=== PATIENT | female | born 1990 | race Caucasian/White ===

== ENCOUNTER → 2021-06-28 15:40 | Outpatient (REF) | payer MEDICARE, MEDICAID, SELFPAY ==
--- NOTE | 2021-06-28 | ECG_ITS ---
Test Reason : high risk med Blood Pressure : / mmHG Vent. Rate : 084 BPM Atrial Rate : 084 BPM P-R Int : 142 ms QRS Dur : 084 ms QT Int : 368 ms P-R-T Axes : 070 021 056 degrees QTc Int : 434 ms Normal sinus rhythm RSR' or QR pattern in V1 suggests right ventricular conduction delay Otherwise normal ECG No significant changes seen Referred By: Gerardo Barry Electronically Signed By:SIMÓN BOYCE MD
== END ==
LOC: HO.CARD 15:40
PROVIDERS: PCP Internal Medicine; Visit Provider Psychiatry & Neurology Child & Adolescent Psychiatry
DX: F43.10 Post-traumatic stress disorder, unspecified (principal); Z79.899 Other long term (current) drug therapy
CPT/HCPCS: 93005

== ENCOUNTER 2021-12-04 20:13 | Emergency (ER) | payer MEDICARE, MEDICAID, SELFPAY ==
[2021-12-04 20:30] VITALS: BMI 20.1
[2021-12-04 20:50] LABS: Appearance Urine CLEAR; Color Urine YELLOW; Glucose Urine UA NEG (NEG); Leukocyte Esterase Urine TRACE (NEG); Nitrite Urine NEG (NEG); PH 6.5 (5.0-8.0); Specific Gravity - Urine <= 1.005 (1.005-1.025); UACC Culture Trigger YES; Urine Blood 3+ (NEG); Urine Ketones NEG (NEG); Urine Protein NEG (NEG-TRACE)
[2021-12-04 20:55] LABS: UPreg QC Valid YES; Urine Pregnancy NEGATIVE (NEGATIVE)
[2021-12-04 20:58] LABS: Squamous Epithelial Cell Urine 3+ /LPF; UACC CULT YES
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
[2021-12-04 20:59] LABS: Bacteria Urine TRACE /LPF
[2021-12-04 21:04] LABS: COVID-19 Test Negative (Negative)
[2021-12-04 21:09] LABS: Amphetamine Screen Urine Not Detected (Not Detect); Barbiturates, Urine Not Detected (Not Detect); Benzodiazepines Screen Urine Not Detected (Not Detect); Cannabinoid Screen Urine Not Detected (Not Detect); Cocaine Screen Urine Not Detected (Not Detect); Fentanyl, urine Not Detected (Not Detect); Opiate Screen Urine Not Detected (Not Detect); Phencyclidine Screen Urine Not Detected (Not Detect)
[2021-12-04] MEDS: Ibuprofen 600 MG TABLET PO (22:24)
[2021-12-04 23:28] VITALS: BP 125/79; PULSE 107; RESP 16; TEMP 36.5; O2SAT 98
== END 2021-12-05 00:44 | disposition home or self-care (01) ==
PROVIDERS: Emergency Provider Emergency Medicine Emergency Medical Services; PCP Internal Medicine
DX: F32.A Depression, unspecified (principal); F41.9 Anxiety disorder, unspecified; F43.10 Post-traumatic stress disorder, unspecified; F60.3 Borderline personality disorder; Z20.822 Contact with and (suspected) exposure to COVID-19
CPT/HCPCS: 80307; 81001; 81025; 87086; 87635; 99283

== ENCOUNTER 2022-04-08 20:15 | Emergency (ER) | payer MEDICARE, MEDICAID, SELFPAY ==
[2022-04-08 21:33] VITALS: BP 126/81; PULSE 68; RESP 18; TEMP 36.8; O2SAT 98; BMI 24.2
--- NOTE | 2022-04-09 00:32 | ED.GENADULT ---
HPI - General Adult General Chief complaint: Dental/Oral Stated complaint: throwing up blood, rash Time Seen by Provider: 04/08/22 23:18 Source: patient Mode of arrival: ambulatory Limitations: no limitations History of Present Illness HPI narrative: Patient comes to the emergency room complaining of a rash in her shoulders. Patient states that she recently stopped taking clindamycin, took it for a week for a dental infection, patient has a procedure coming up next week. Patient is mostly concerned about a rash in her shoulders and her back. Patient states it is not itchy and not painful. Patient denies fever or chills. Related Data Previous Rx's Medication Instructions Recorded benzoyl peroxide 10 % topical gel 1 appl topical TID #90 grams 04/09/22 (Acne Treatment (benzoyl peroxide)) Allergies Allergy/AdvReac Type Severity Reaction Status Date / Time Penicillins Allergy Unknown Verified 04/09/22 00:32 Review of Systems Review of Systems: Constitutional : No Weight loss, No Fever, No Chills, No Night Sweats, No Fatigue, No Malaise ENT/Mouth : No Hearing loss, No Ear Pain, No Nasal Congestion, No Sinus Pain, No Hoarseness, No sore throat, No Rhinorrhea, No Swallowing Difficulty, complaining of dental infection which was treated with clindamycin for 7 days Eyes: No Eye Pain, No Swelling, No Redness, No Foreign Body, No Discharge, No Vision Changes Cardiovascular : No Chest Pain, No SOB, No Dyspnea on Exertion, No Orthopnea, No Edema, No Palpitations Respiratory : No Cough, No Sputum, No Wheezing, No Smoke Exposure, No Dyspnea Gastrointestinal : No Nausea, No Vomiting, No Diarrhea, No Constipation, No abdominal Pain, No Hematochezia, No Melena Genitourinary : no irregular bleeding, No Dysuria, No Urinary Frequency, No Hematuria, No Urinary Incontinence, No Urgency, No Flank Pain, No Urinary Flow Changes, No Hesitancy Musculoskeletal : No joint pain, No Myalgias, No Joint Swelling Skin : Complaining of and asymptomatic rash in her shoulders and upper back Neuro : No Weakness, No Numbness, No Paresthesias, No Loss of Consciousness, No Dizziness, No Headache Psych : No Anxiety/Panic, No Depression, No SI/HI/AH/VH, No Social Issues, Heme/Lymph: No Bruising, No Bleeding,No Lymphadenopathy Endocrine : No Polyuria, No Polydipsia, No Temperature Intolerance Physical Exam ED Vital Signs: Vital Signs - 24 hr 04/08/22 21:33 Temperature 98.3 F Pulse Rate 68 Respiratory Rate 18 Blood Pressure 126/81 Pulse Oximetry 98 Oxygen Delivery Method Room Air BMI result Body Mass Index 24.2 Const Other: Appearance: Alert. Oriented X3. No acute distress. Eyes: Pupils equal, round and reactive to light. ENT: Pharynx normal. No exudates, normal oropharynx Neck: Normal inspection. Neck supple. No lymph nodes noted. No crepitus CVS: Normal heart rate and rhythm. Pulses normal. Normal S1 and S2 Respiratory: No respiratory distress. Breath sounds normal. No Wheezing. No rales Abdomen: Soft and nontender. No rigidity. No distention. Skin: Skin warm and dry. Acne rash present in shoulders and upper back Extremities: No lower extremity edema. No Lacerations. No Rash Neuro: Oriented X 3. No motor deficit. No sensory deficit. Moving all extremities. No slurred speech. CN 2 through 12 grossly intact Psych: calm, cooperative, normal affect Course Course Course Narrative: I discussed the physical exam with the patient, patient has acne. Is not allergic reaction. Patient already completed a course of antibiotics/clindamycin and has an appointment. Patient will be sent to the patient's pharmacy for acne Discharge Plan Discharge Clinical Impression: Acne Patient Disposition: Home, Self-Care Instructions: Benzoyl Peroxide (On the skin) Additional Instructions: Please follow-up with your primary care physician tomorrow. If you have any worsening or new symptoms, please return to the emergency room or call 911 Prescriptions: New benzoyl peroxide [Acne Treatment (benzoyl perox)] 10 % gel 1 appl topical TID Qty: 90 0RF
== END 2022-04-09 00:50 | disposition home or self-care (01) ==
PROVIDERS: Emergency Provider Emergency Medicine; PCP Internal Medicine
DX: L70.9 Acne, unspecified (principal)
CPT/HCPCS: 99282; 99283

== ENCOUNTER 2022-08-17 08:30 | Outpatient (RCR) | payer MEDICARE, MEDICAID, SELFPAY ==
[2022-08-02 11:05] VITALS: BMI 23.2
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
[2022-08-02 12:20] LABS: Amphetamine Screen Urine Not Detected (Not Detect); Barbiturates, Urine Not Detected (Not Detect); Benzodiazepines Screen Urine Not Detected (Not Detect); Cannabinoid Screen Urine Not Detected (Not Detect); Cocaine Screen Urine Not Detected (Not Detect); Fentanyl, urine Not Detected (Not Detect); Opiate Screen Urine Not Detected (Not Detect); Phencyclidine Screen Urine Not Detected (Not Detect)
--- NOTE | 2022-08-02 16:42 | HO.PHPIOP ---
Case opened in treatment team.
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
--- NOTE | 2022-08-10 10:56 | PC.NURSE ---
Patient stated she felt dizzy when she got up from her chair. Stated this has happened to her before and she stated she forgot what her doctor told her it was. Stated she was told to slowly get up from a seating position. VSS 116/80 P 80. Patient drank 3 cups of juice as she stated her intake is not great in regards to her disordered eating. Stated she was put on a new healthier diet. Patient stated she was feeling better after drinking the juice. No longer feeling dizzy. Was able to get out of her chair without incident.
--- NOTE | 2022-08-11 15:06 | PC.NURSE ---
Spoke to [facility] Aguero program staff where patient resides regarding patient mentioning to staff that she is on a treatment plan regarding food. Linda Aguero stated that patient is not on any type of treatment plan regarding food intake and is not on any type of restricting diet. Stated they were watching her diet for 24 hours in relation to lab work and possible lactose intolerance issues.
--- NOTE | 2022-08-17 13:36 | HO.PHPPROGNO ---
Subjective Subjective Date of Service: 08/17/22 Reason For Visit: PTSD,anxiety Medical Problems Affecting Mental Status: No Interim History: Describes mood as ?okay, still up and down, but better ?. No SI/HI, no safety concerns. Has found program to be helpful. 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 No concerns. Medication Compliance: Yes Side effects from medications: No Attending Groups: Yes Review of Systems Acute medical concerns: No Medical Review of Systems: unchanged Review of Systems Review of Systems Yes all other systems are reviewed and are negative Constitutional: Reports no additional constitutional complaints Mental Status Exam Mental Status Exam Narrative: NAD Patient Appearance: Appropriate Patient Orientation: Person, Place, Time and Situation Level of Consciousness: Appropriate Patient Behavior: Appropriate, Cooperative and Good Eye Contact Mood Description: Appropriate and Depressed (improved) Affect Description: Appropriate Patient Cognition Impaired: No Ability to Follow Directions: Excellent Speech Pattern: Clear and Appropriate Memory Description: Intact Delusions: Not Present Perceptual Disturbances: Depersonalization Thought Process: Intact Thought Content: positive for [place] Judgement: Good Diagnostics Vital Signs (24Hr): BMI result Body Mass Index 23.2 Assessment & Plan Assessment & Plan (1) MDD (major depressive disorder), recurrent episode, moderate: Status: Acute Code(s): F33.1 - Major depressive disorder, recurrent, moderate Assessment and Plan: Describes mood as ?okay, still up and down, but better ?. States that she feels stable. No SI/HI, no safety concerns. Has found program to be helpful. Reports that she will miss participating in groups, but is also ready for discharge. 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 Patient reports that she greatly enjoys her work. (2) Post-traumatic stress disorder, chronic: Status: Acute Code(s): F43.12 - Post-traumatic stress disorder, chronic Plan 1. Patient appears stable for discharge from [facility] at this time. 2. Patient to follow-up with outpatient providers going forward. Patient educated on: diagnosis, medication risk/benefits and therapeutic strategies Informed Consent: understands Reason for contiued partial hosp. stay Substantial Risk for: stable for discharge Certification I certify that partial hospital treatment is medically necessary due to the symptoms and problems resulting from the patient's mental illness and the failure to treat the patient at the partial hospital level of care would likely result in the patient requiring inpatient psychiatric care which could not be prevented at a less intensive level of care. I spent minutes with the patient and/or on the patient floor today, greater than?50% of which was spent counseling/coordinating care. Discharge Plan Discharge Attending provider: George Landa Medications: No Action multivitamin [Hi-Potency Multivitamin] Tablet 1 tab PO DAILY lamotrigine 200 mg tablet 1 tab PO DAILY omeprazole 40 mg capsule,delayed release(DR/EC) 1 cap PO BEDTIME Label Comments: Takes in the evening only at present. calcium carbonate 600 mg calcium (1,500 mg) Tablet 600 mg PO DAILY benztropine 1 mg tablet 1 tab PO DAILY albuterol sulfate [Ventolin HFA] 90 mcg/actuation Hfa Aerosol Inhaler 2 puff INHALATION Q4H PRN (Reason: Shortness Of Breath) hydroxyzine pamoate 25 mg Capsule 25 mg PO TID PRN (Reason: Anxiety) aripiprazole [Abilify] 5 mg Tablet 5 mg PO BEDTIME vilazodone 20 mg tablet 30 mg PO DAILY Rx Instructions: Take 1 and 1/2 tab daily. Stand Alone Forms: Patient Portal Discharge page Patient Education: Depression (DC), Post Traumatic Stress Disorder (DC)
== END 2022-08-17 23:59 | disposition home or self-care (01) ==
LOC: HO.PHPA 08:30
PROVIDERS: Nurse Practitioner Psychiatric/Mental Health; Visit Provider Psychiatry & Neurology Psychiatry
DX: F33.1 Major depressive disorder, recurrent, moderate (principal); F43.12 Post-traumatic stress disorder, chronic; Z79.899 Other long term (current) drug therapy; Z91.51 Personal history of suicidal behavior
CPT/HCPCS: 80307; 90791; 90853

== ENCOUNTER 2022-08-21 10:04 | Emergency (ER) | payer MEDICARE, MEDICAID, SELFPAY ==
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
[2022-08-21 10:15] VITALS: BP 118/87; PULSE 81; RESP 16; TEMP 36.9; O2SAT 95; BMI 25.4
[2022-08-21 10:46] LABS: MANUAL DIFF FLAG NO
[2022-08-21 10:55] LABS: Basophils Absolute Auto 0.1 X10*3/uL (0.0-0.2); Eosinophils Percent Auto 0.7 % (0-4); Hemoglobin 14.1 g/dl (12.0-16.0); Imm Gran Abs Auto 0.02 X10*3/uL (0.00-0.03); Imm Gran Pct Auto 0.3 % (0.0-0.4); Lymphocytes Absolute Auto 1.4 X10*3/uL (1.2-4.9); Lymphocytes Percent Auto 23.4 % (20-40); Mean Corpuscular HGB Conc 33.6 g/dl (31.0-35.0); Mean Corpuscular Hemoglobin 30.3 pg (27.0-33.0); Mean Corpuscular Volume 90.3 fL (80.0-98.0); Mean Platelet Volume 9.4 fL (9.4-12.3); Monocytes Absolute Auto 0.4 X10*3/uL (0.1-1.2); Neutrophils Percent Auto 67.6 % (45-73); Platelet Count 316 X10*3/uL (160-400); Red Blood Count 4.65 X10*6/uL (4.20-5.50); Red Cell Distribution Width 12.3 % (11.0-16.0); White Blood Count 5.9 X10*3/uL (4.8-10.8)
[2022-08-21 10:58] LABS: Amphetamine Screen Urine Not Detected (Not Detect); Barbiturates, Urine Not Detected (Not Detect); Benzodiazepines Screen Urine Not Detected (Not Detect); Cannabinoid Screen Urine Not Detected (Not Detect); Cocaine Screen Urine Not Detected (Not Detect); Fentanyl, urine Not Detected (Not Detect); Opiate Screen Urine Not Detected (Not Detect); Phencyclidine Screen Urine Not Detected (Not Detect)
[2022-08-21 11:10] LABS: Alanine Aminotransferase 10 U/L (0-31); Albumin Level 4.4 g/dL (3.5-5.0); Alkaline Phosphatase 65 U/L (39-117); Anion Gap 13 (12-20); Aspartate Amino Transferase 14 U/L (5-31); Bilirubin Total 0.4 mg/dL (0.0-1.0); Blood Urea Nitrogen 13 mg/dL (9-16); Calcium 9.5 mg/dL (8.4-10.2); Carbon Dioxide 27 mmol/L (22-29); Chloride 105 mmol/L (96-108); Creatinine Clr Calc Pharmacy 99.5; Estimated Glomerular Filt Rate > 60; Ethanol < 10 mg/dL; Glucose Random 86 mg/dL (60-115); Potassium 4.7 mmol/L (3.3-5.1); Sodium 140 mmol/L (135-145); Total Protein 6.4 g/dL (6.5-8.0)
--- NOTE | 2022-08-21 11:59 | ED_ITS ---
HPI - Psych General Chief Complaint: Psychiatric Symptoms <Mandi Cortes NP - Last Filed: 08/21/22 16:15> Stated Complaint: SI <Mandi Cortes NP - Last Filed: 08/21/22 16:15> Time Seen by Provider: 08/21/22 10:10 <Mandi Cortes NP - Last Filed: 08/21/22 16:15> Source: patient <Mandi Cortes NP - Last Filed: 08/21/22 16:15> Mode of arrival: ambulatory <Mandi Cortes NP - Last Filed: 08/21/22 16:15> Limitations: no limitations <Mandi Cortes NP - Last Filed: 08/21/22 16:15> History of Present Illness HPI Narrative: 32-year-old female, who lives in a skilled nursing, with complex psychiatric past medical history presents to the emergency department today by EMS for complaints suicidal ideation. She states she had gotten up this morning to make breakfast and staff continue to ask her about cleaning the Fridge as her daily chore. Patient states she was very agitated and used scissors to cut both her right wrist and left hand. She states she then put the scissors to her neck and stated that she was going to use them to end her life. On arrival to the emergency department, patient denies current suicidal ideation and stated that when she was in the moment she felt threatened and uncomfortable. She states she is very unhappy at the skilled nursing where she resides and is seeking crisis intervention. She denies fever, chills, headache, nausea, vomiting, diarrhea, constipation, recent illness, or sick contacts. She endorses pain on her left upper jaw which she believes is related to a tooth that needs to be pulled. She denies any difficulty chewing or swallowing denies any bowel drainage from the tooth. <Mandi Cortes NP - Last Filed: 08/21/22 16:15> complaint: suicidal ideation <Mandi Cortes NP - Last Filed: 08/21/22 16:15> Onset (ago): hour(s) <Mandi Cortes NP - Last Filed: 08/21/22 16:15> Duration: constant <Mandi Cortes NP - Last Filed: 08/21/22 16:15> History of same: Yes <Mandi Cortes NP - Last Filed: 08/21/22 16:15> Relieving factors: none <Mandi Cortes NP - Last Filed: 08/21/22 16:15> Exacerbating factors: none <Mandi Cortes NP - Last Filed: 08/21/22 16:15> Context: significant life stressor <Mandi Cortes NP - Last Filed: 08/21/22 16:15> Associated psychiatric symptoms: none <Mandi Cortes NP - Last Filed: 08/21/22 16:15> Associated symptoms: denies other symptoms <Mandi Cortes NP - Last Filed: 08/21/22 16:15> Treatments prior to arrival: none <Mandi Cortes NP - Last Filed: 08/21/22 16:15> If self harm: admits thoughts of self harm <Mandi Cortes NP - Last Filed: 08/21/22 16:15> Related Data Home Medications: Home Medications Medication Instructions Recorded Confirmed albuterol sulfate 90 mcg/actuation 2 puff inhalation Q4-6H PRN 08/21/22 08/21/22 aerosol inhaler (Ventolin HFA) Wheezing aripiprazole 15 mg tablet 7.5 mg PO BEDTIME 08/21/22 08/21/22 benztropine 1 mg tablet 1 tab PO BEDTIME 08/21/22 08/21/22 hydroxyzine pamoate 25 mg capsule 1 cap PO TID PRN anxiety 08/21/22 08/21/22 lamotrigine 200 mg tablet 200 mg PO QAM 08/21/22 08/21/22 (Lamictal) mirabegron 25 mg tablet,extended 25 mg PO DAILY 08/21/22 08/21/22 release 24 hr (Myrbetriq) omeprazole 40 mg capsule,delayed 40 mg PO DAILY 08/21/22 08/21/22 release vilazodone 20 mg tablet (Viibryd) 1.5 tab PO DAILY 08/21/22 08/21/22 <Mandi Cortes NP - Last Filed: 08/21/22 16:15> Allergies/Adverse Reactions: Allergies Allergy/AdvReac Type Severity Reaction Status Date / Time amoxicillin [From AUGMENTIN] Allergy Unknown SWOLLEN Unverified 05/28/20 17:30 THROAT clavulanic acid Allergy Unknown SWOLLEN Unverified 05/28/20 17:30 [From AUGMENTIN] THROAT fluoxetine [From PROZAC] Allergy Unknown RASH Unverified 05/28/20 17:30 penicillin G Allergy Unknown Verified 10/26/17 00:00 Penicillins [PENICILLINS] Allergy Unknown SWELLING/THROUT Unverified 05/28/20 17:30 CLOSES <Mandi Cortes NP - Last Filed: 08/21/22 16:15> Review of Systems Review of Systems: In addition to documented HPI above, the additional ROS was obtained: Constitutional: No Weight loss, No Fever, No Chills ENT/Mouth: Per HPI. No Ear Pain, No Nasal Congestion, No Sinus Pain, No Hoarseness, No sore throat, No Rhinorrhea, No Swallowing Difficulty Cardiovascular: No Chest Pain, No SOB Respiratory: No Cough, No Sputum, No Wheezing Gastrointestinal: No Nausea, No Vomiting, No Diarrhea, No Constipation, No Abdominal pain Genitourinary: No Dysuria, No Urinary Frequency, No Hematuria, No Urinary Incontinence/retention, No Urgency, No Flank Pain Musculoskeletal: No joint pain, No Myalgias, No Joint Swelling Skin: No Skin Lesions, No rash Neuro: No Weakness, No Numbness, No Paresthesias Psych: Denies visual/auditory hallucinations or paranoias. Denies homicidal ideations <Mandi Cortes NP - Last Filed: 08/21/22 16:15> Yes all other systems are reviewed and are negative <Mandi Cortes NP - Last Filed: 08/21/22 16:15> [facility] Past Medical History Attestation statement: The following information was validated with the patient. <Mandi Cortes NP - Last Filed: 08/21/22 16:15> Source: old records reviewed and obtained from family <Mandi Cortes NP - Last Filed: 08/21/22 16:15> Social History Social History: Social History Alcohol intake: never Smoked in Last 30 Days: No Use of substances other than those prescribed or required for medical reasons: No Advance Directives: No Patient : No <Mandi Cortes NP - Last Filed: 08/21/22 16:15> Physical Exam Vital Signs: Vital Signs: Last Vital Signs Temp 98.4 F 08/21/22 10:15 Pulse 81 08/21/22 10:15 Resp 18 08/21/22 15:44 BP 118/87 08/21/22 10:15 Pulse Ox 95 08/21/22 10:15 O2 Del Method 08/21/22 10:15 BMI result Body Mass Index 25.4 <Mandi Cortes NP - Last Filed: 08/21/22 16:15> Vital Signs: Last Vital Signs Temp 98.4 F 08/21/22 10:15 Pulse 81 08/21/22 10:15 Resp 18 08/21/22 15:44 BP 118/87 08/21/22 10:15 Pulse Ox 95 08/21/22 10:15 O2 Del Method 08/21/22 10:15 BMI result Body Mass Index 25.4 <Jay Trujillo MD - Last Filed: 08/21/22 17:05> Const: General: cooperative, alert and awake <Mandi Cortes NP - Last Filed: 08/21/22 16:15> Nutritional Appearance: well nourished <Mandi Cortes NP - Last Filed: 08/21/22 16:15> Orientation/consciousness: patient oriented x3 <Mandi Cortes NP - Last Filed: 08/21/22 16:15> Limitations: no limitations <Mandi Cortes NP - Last Filed: 08/21/22 16:15> HEENT: Head: Yes normal to inspection, Yes normocephalic and Yes atraumatic <Mandi Cortes NP - Last Filed: 08/21/22 16:15> Ears: hearing grossly normal bilaterally and external ears normal <Mandi Cortes NP - Last Filed: 08/21/22 16:15> General nose exam: Normal external nose present and Normal nares present <Mandi Cortes, [employer] - Last Filed: 08/21/22 16:15> Face and sinus: Yes normal facial exam and Yes face symmetric <Mandi Cortes, [employer] - Last Filed: 08/21/22 16:15> Mouth: Normal oral and palatal mucosa present and tongue normal <Mandi Cortes, [employer] - Last Filed: 08/21/22 16:15> Teeth and gingiva: poor dentition <Mandi Cortes, [employer] - Last Filed: 08/21/22 16:15> Throat: Yes posterior oropharynx normal, Yes tonsils normal and Yes uvula midline <Mandi Cortes, [employer] - Last Filed: 08/21/22 16:15> Eyes: General: appearance normal, both eyes and all related structures <Mandi Cortes, [employer] - Last Filed: 08/21/22 16:15> Visual López: normal visual lópez by confrontation <Mandi Cortes, [employer] - Last Filed: 08/21/22 16:15> Alignment and Position: alignment normal <Mandi Cortes, [employer] - Last Filed: 08/21/22 16:15> Periorbital: periorbital findings normal <Mandi Cortes, [employer] - Last Filed: 08/21/22 16:15> Eyelids: Yes eyelids normal <Mandi Cortes, [employer] - Last Filed: 08/21/22 16:15> Conjunctivae: conjunctivae normal <Mandi Cortes, [employer] - Last Filed: 08/21/22 16:15> Sclerae: sclerae normal <Mandi Cortes, [employer] - Last Filed: 08/21/22 16:15> Corneas: corneas normal <Mandi Cortes, [employer] - Last Filed: 08/21/22 16:15> Pupils: Equal, round and reactive pupils present <Mandi Cortes, [employer] - Last Filed: 08/21/22 16:15> EOM: EOMs intact bilaterally <Mandi Cortes, [employer] - Last Filed: 08/21/22 16:15> Neck: Neck: Yes normal visual inspection and Yes full ROM <Mandi Plricardojake, [employer] - Last Filed: 08/21/22 16:15> Chest: Chest palpation & inspection: normal inspection of the chest <Mandi Plricardojake, [employer] - Last Filed: 08/21/22 16:15> Resp: Effort & Inspection: normal respiratory effort, no cough and not labored <Mandi Plricardojake, [employer] - Last Filed: 08/21/22 16:15> Auscultation: clear to auscultation bilaterally, no crackles, no rhonchi and no wheezes <Mandi Plricardojake, [employer] - Last Filed: 08/21/22 16:15> Cardio: Rate: regular rate <Mandibella Cortes, [employer] - Last Filed: 08/21/22 16:15> Rhythm: regular rhythm <Mandi Matthewricardojake, [employer] - Last Filed: 08/21/22 16:15> Back/Spine/Pelvis: Cervical Spine: cervical ROM normal <Mandibella Cortes, [employer] - Last Filed: 08/21/22 16:15> Thoracic/Lumbar Spine: thoraco-lumbar ROM normal <Mandi Matthewjanelle, [employer] - Last Filed: 08/21/22 16:15> Skin: General skin exam: no rashes or lesions noted <Mandi Plricardojake, [employer] - Last Filed: 08/21/22 16:15> Neuro: General: patient oriented x3 <Mandi Plricardojake, [employer] - Last Filed: 08/21/22 16:15> Cranial nerves: Yes Equal, round and reactive pupils present <Mandi P sumajake, [employer] - Last Filed: 08/21/22 16:15> Extrem: General: Yes normal to inspection, Yes full ROM and Yes capillary refill normal <Mandi Plricardojake, [employer] - Last Filed: 08/21/22 16:15> Psych: Appearance: grossly normal <Mandi Plricardojake, [employer] - Last Filed: 08/21/22 16:15> Speech and movement: Normal speech and movement present and Clear speech present <Mandiehsan Cortes, [employer] - Last Filed: 08/21/22 16:15> Affect: Sad affect present <Mandibella Cruznik, [employer] - Last Filed: 08/21/22 16:15> Attitude: cooperative <Mandi Cortes NP - Last Filed: 08/21/22 16:15> Thought process: Normal thought process present <Mandi Cortes NP - Last Filed: 08/21/22 16:15> Thought content: Normal thought content present <Mandi Cortes NP - Last Filed: 08/21/22 16:15> Insight: Poor insight present (Psych) <Mandi Cortes NP - Last Filed: 08/21/22 16:15> Judgement: Poor judgement present (Psych) <Mandi Cortes NP - Last Filed: 08/21/22 16:15> Medical Decision Making Medical Decision Making MDM Narrative: 32-year-old female, who lives in a skilled nursing, with complex psychiatric past medical history presents to the emergency department today by EMS for complaints suicidal ideation and self harm with scissor to her right wrist and left hand. Gauze wrap in place on admit to the emergency department, placed by EMS. Gauze taken down for assessment of self-inflicted wounds. Right wrist with two 5-6 cm superficial lacerations with controlled bleeding. Left webspace between thumb and forefinger with 1 cm superficial laceration with controlled bleeding. The wounds cleanse and rewrapped, as no other treatment is necessary at this time. Patient denies current thoughts of suicide and states she performs self harm in response to a stressful situation. She states she is compliant with her medications. Crisis consult initiated. Blood work, GRAVES, U preg negative, and viral swab sent for pending placement in behavioral health unit once pt is medically cleared. 1:1 at bedside for ensured patient safety. Blood work unremarkable, serology negative for viral infection, toxicology negative. XR left shoulder/elbow/wrist/hand showing age-indeterminate osseous fragments abutting the lateral humeral epicondyle which may reflect an age- indeterminate lateral epicondylar avulsion fracture, recommend correlation with point tenderness. No acute osseous abnormality involving the shoulder or wrist. Pt medically cleared to continue with crisis evaluation. <Mandi Cortes NP - Last Filed: 08/21/22 16:15> 32-year-old female, who lives in a skilled nursing, with complex psychiatric past medical history presents to the emergency department today by EMS for complaints suicidal ideation and self harm with scissor to her right wrist and left hand. Gauze wrap in place on admit to the emergency department, placed by EMS. Gauze taken down for assessment of self-inflicted wounds. Right wrist with two 5-6 cm superficial lacerations with controlled bleeding. Left webspace between thumb and forefinger with 1 cm superficial laceration with controlled bleeding. The wounds cleanse and rewrapped, as no other treatment is necessary at this time. Patient denies current thoughts of suicide and states she performs self harm in response to a stressful situation. She states she is compliant with her medications. Crisis consult initiated. Blood work, GRAVES, U preg negative, and viral swab sent for pending placement in behavioral health unit once pt is medically cleared. 1:1 at bedside for ensured patient safety. Blood work unremarkable, serology negative for viral infection, toxicology negative. XR left shoulder/elbow/wrist/hand showing age-indeterminate osseous fragments abutting the lateral humeral epicondyle which may reflect an age- indeterminate lateral epicondylar avulsion fracture, recommend correlation with point tenderness. No acute osseous abnormality involving the shoulder or wrist. Pt medically cleared to continue with crisis evaluation. 1705: The patient was seen by [facility], the patient's skilled nursing will accept her back and the patient will be discharged. <Jay Turjillo MD - Last Filed: 08/21/22 17:05> Discharge Plan Discharge Clinical Impression: Suicidal ideation <Mandi Cortes NP - Last Filed: 08/21/22 16:15> Patient Disposition: Home, Self-Care <Mandi Cortes NP - Last Filed: 08/21/22 16:15> Additional Instructions: Continue taking medications as prescribed by your providers. Follow-up with your doctor in 2 days. Please return to the emergency department if your symptoms get worse or if you develop any symptoms that are concerning to you. <Mandi Cortes NP - Last Filed: 08/21/22 16:15> Prescriptions: No Action lamotrigine [Lamictal] 200 mg tablet 200 mg PO QAM omeprazole 40 mg capsule,delayed release(DR/EC) 40 mg PO DAILY benztropine 1 mg tablet 1 tab PO BEDTIME albuterol sulfate [Ventolin HFA] 90 mcg/actuation HFA aerosol inhaler 2 puff INHALATION Q4-6H PRN (Reason: Wheezing) hydroxyzine pamoate 25 mg capsule 1 cap PO TID PRN (Reason: anxiety) aripiprazole 15 mg tablet 7.5 mg PO BEDTIME vilazodone [Viibryd] 20 mg tablet 1.5 tab PO DAILY Myrbetriq 25 mg tablet extended release 24 hr 25 mg PO DAILY <Mandi Cortes NP - Last Filed: 08/21/22 16:15> Interventions: [place]-Suicide Risk Severity Scale Last Done: 08/21/22 15:44 <Mandi Cortes NP - Last Filed: 08/21/22 16:15>
[2022-08-21 12:36] LABS: Influenza A PCR NEGATIVE (Negative); Influenza B PCR NEGATIVE (Negative); Resp Syncy Virus RNA Qual PCR NEGATIVE (Negative); SARS COV2 PCR INHOUSE NEGATIVE (Negative)
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
--- NOTE | 2022-08-21 15:12 | MHC.CARE ---
Care Team completed [facility] smart sheet.
[2022-08-21 15:44] VITALS: RESP 18
[2022-08-21 16:04] LABS: UPreg QC Valid YES; Urine Pregnancy NEGATIVE (NEGATIVE)
--- NOTE | 2022-08-21 16:20 | PC.NURSE ---
Addendum entered by Veronica Scruggs 08/21/22 16:23: contact made by [facility]. No ETA for clinician for eval at this time. Original Note: Kristine Luna surveillance manager called seeking update. Awaiting [facility] eval at this time. Contact number [phone] call with status update or any questions.
--- NOTE | 2022-08-21 17:07 | PC.NURSE ---
Per lee: pt must wait in BH pod until ride comes from
== END 2022-08-21 17:47 | disposition home or self-care (01) ==
PROVIDERS: Nurse Practitioner Family; Emergency Provider Emergency Medicine Emergency Medical Services
DX: S61.512A Laceration without foreign body of left wrist, initial encounter (principal); F33.1 Major depressive disorder, recurrent, moderate; S61.511A Laceration without foreign body of right wrist, initial encounter; R45.851 Suicidal ideations; M25.512 Pain in left shoulder; M25.522 Pain in left elbow; X78.9XXA Intentional self-harm by unspecified sharp object, initial encounter; Y93.9 Activity, unspecified; Y92.009 Unspecified place in unspecified non-institutional (private) residence as the place of occurrence of the external cause; Y99.9 Unspecified external cause status; Z20.822 Contact with and (suspected) exposure to COVID-19; Z79.899 Other long term (current) drug therapy
CPT/HCPCS: 0241U; 73020; 73070; 73110; 73130; 80053; 80307; 81025; 82077; 85025; 99284; 99285

== ENCOUNTER 2022-08-28 19:09 | Emergency (ER) | payer MEDICARE, MEDICAID, SELFPAY ==
[2022-08-28 19:16] VITALS: BP 104/77; BP 118/82; PULSE 100; PULSE 92; RESP 14; TEMP 37.7; O2SAT 98; BMI 21.6
[2022-08-28 19:43] VITALS: TEMP 37.1
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
[2022-08-28 20:16] LABS: Appearance Urine Cloudy; Color Urine Dark Yellow; Glucose Urine UA Negative (Negative); Leukocyte Esterase Urine Negative (Negative); Nitrite Urine Negative (Negative); PH 6.5 (5.0-9.0); UMIC TRIGGER UACC YES; Urine Blood Negative (Negative); Urine Ketones 80 mg/dL (Negative); Urine Protein 100 (2+) mg/dL (Neg-Trace)
[2022-08-28 20:21] LABS: Bacteria Urine Trace (None Seen); WBC Urine 0-5 /HPF (0-5)
--- NOTE | 2022-08-28 20:22 | PC.NURSE ---
Med req completed.
[2022-08-28 20:26] LABS: Amphetamine Screen Urine Not Detected (Not Detect); Barbiturates, Urine Not Detected (Not Detect); Benzodiazepines Screen Urine Not Detected (Not Detect); Cannabinoid Screen Urine Not Detected (Not Detect); Cocaine Screen Urine Not Detected (Not Detect); Fentanyl, urine POSITIVE (Not Detect); Opiate Screen Urine Not Detected (Not Detect); Phencyclidine Screen Urine Not Detected (Not Detect)
[2022-08-28 20:31] LABS: COVID-19 Test Negative (Negative)
--- NOTE | 2022-08-28 20:34 | MHC.CARE ---
Care Team completed [facility] smart sheet.
--- NOTE | 2022-08-28 20:35 | ED_ITS ---
HPI - General Adult General Chief complaint: Psychiatric Symptoms Stated complaint: crisis Time Seen by Provider: 08/28/22 19:55 Source: patient Limitations: no limitations History of Present Illness HPI narrative: This is a 32-year-old female with a history of PTSD, major depressive disorder, anxiety, who had been admitted a week ago. The patient resides in a [facility]ci. She states she has felt worse recently and has been wanting to hurt herself. She was hitting herself in the head with her hands. She also complains of chronic pain in her feet but denies any injury. She has seen specialists in the past about this and was noted to have flat feet, was told to do exercises. She denies hearing voices recently. She notes that she is triggered both by the anniversary of her child's 9 years ago, and also the patient has a hope chest given to her by her grandmother but reminds her of her grandmother dying in a car accident. Patient denies any headache, nausea vomiting, chest pain, shortness of breath, abdominal pain Related Data Home Medications Medication Instructions Recorded Confirmed albuterol sulfate 90 mcg/actuation 2 puff inhalation Q4H PRN 08/02/22 08/28/22 aerosol inhaler (Ventolin HFA) Shortness Of Breath calcium carbonate 600 mg calcium 600 mg PO DAILY 08/02/22 08/28/22 (1,500 mg) tablet hydroxyzine pamoate 25 mg capsule 25 mg PO TID PRN Anxiety 08/02/22 08/28/22 multivitamin 1 tab PO DAILY 08/02/22 08/28/22 vilazodone 20 mg tablet 30 mg PO DAILY 08/02/22 08/28/22 aripiprazole 15 mg tablet 7.5 mg PO BEDTIME 08/21/22 08/28/22 benztropine 1 mg tablet 1 tab PO BEDTIME 08/21/22 08/28/22 lamotrigine 200 mg tablet 200 mg PO QAM 08/21/22 08/28/22 (Lamictal) mirabegron 25 mg tablet,extended 25 mg PO DAILY 08/21/22 08/28/22 release 24 hr (Myrbetriq) omeprazole 40 mg capsule,delayed 40 mg PO DAILY 08/21/22 08/28/22 release Allergies Allergy/AdvReac Type Severity Reaction Status Date / Time amoxicillin [From AUGMENTIN] Allergy Unknown SWOLLEN Unverified 08/22/22 07:19 THROAT clavulanic acid Allergy Unknown SWOLLEN Unverified 08/22/22 07:19 [From AUGMENTIN] THROAT fluoxetine [From PROZAC] Allergy Unknown RASH Unverified 08/22/22 07:19 penicillin G Allergy Unknown Verified 08/22/22 07:19 Penicillins [PENICILLINS] Allergy Unknown SWELLING/THROUT Unverified 08/22/22 07:19 CLOSES Review of Systems Review of Systems: Yes all other systems are reviewed and are negative Constitutional: Constitutional: Reports as per HPI and Denies fever(s) Eyes: Eyes: Reports as per HPI and Reports no additional eye complaints ENT: Reports system reviewed and no additional complaints, except as documented, Reports as per HPI, Denies nasal congestion, Denies nasal discharge and Denies sore throat Cardiovascular: Cardiovascular: Reports as per HPI, Denies chest pain and Denies dyspnea Respiratory: Respiratory: Reports as per HPI, Denies cough and Denies dyspnea Gastrointestinal: Gastrointestinal: Reports as per HPI, Denies abdominal pain, Denies diarrhea and Denies vomiting Genitourinary: Genitourinary: Reports as per HPI, Denies hematuria, Denies urinary frequency and Denies dysuria Musculoskeletal: Musculoskeletal: Reports no additional musculoskeletal complaints and Denies numbness Integumentary/Breasts: Skin/Breast: Reports as per HPI and Denies rash Comments: Foot pain Neurologic: Reports as per HPI, Denies focal weakness and Denies numbness Psychiatric: Psychiatric: Reports no additional psychiatric complaints, Reports as per HPI, Reports depression and Reports suicidal ideation Endocrine: Endocrine: Reports no additional endocrine complaints and Reports as per HPI Hematologic/Lymphatic: Hematologic/Lymphatic: Reports no additional hematologi c/lymphatic complaints, Reports as per HPI and Reports other (No peripheral edema) [facility] Past Medical History Medical History (Updated 08/28/22 @ 22:25 by Eliceo Bonilla MD) Asthma Migraine Retts syndrome Social History Social History (System 08/22/22 @ 07:19 by Ananya Hayden) Household Members: Other Household Members Other:: Residential Home/Housemates Alcohol intake: never Patient Tobacco Use Status: Former Tobacco user Smoked in Last 30 Days: No Use of substances other than those prescribed or required for medical reasons: No Advance Directives: No Advance Directives Information Provided: No Patient : No Physical Exam ED Vital Signs: Vital Signs - 24 hr 08/28/22 19:16 08/28/22 19:43 Temperature 99.9 F 98.7 F Pulse Rate 100 Respiratory Rate 14 Blood Pressure 104/77 BMI result Body Mass Index 21.6 Const General: no acute distress Orientation/consciousness: patient oriented x3 HENMT Head: Yes normal to inspection General nose exam: Normal external nose present Mouth: moist mucous membranes Throat: Yes posterior oropharynx normal, Yes tonsils normal and Yes uvula midline Eyes Eyelids: Yes eyelids normal Conjunctivae: conjunctivae normal Pupils: Equal, round and reactive pupils present Neck Neck: Yes supple Resp Effort & Inspection: normal respiratory effort Auscultation: clear to auscultation bilaterally Cardio Rate: regular rate Rhythm: regular rhythm Heart sounds: S1 normal heart sound present, S2 normal heart sound present, no gallops, no murmurs and no rubs GI Inspection: No distended Palpation (GI): Soft to palpation and nontender Auscultation: normal bowel sounds Skin General skin exam: other (Warm and dry) Neuro General: patient oriented x3 and CN's II-XI intact bilaterally Cranial nerves: Yes Equal, round and reactive pupils present Extrem General: Yes no pedal edema Psych Affect: normal affect Attitude: cooperative Medications Administered Generic Name Dose Route Start Last Admin Trade Name Lizzy PRN Reason Stop Dose Admin Aripiprazole 7.5 mg 08/28/22 21:00 08/28/22 20:59 Aripiprazole 15 Mg Tablet PO 7.5 mg BEDTIME TERESA Administration Benztropine Mesylate 1 mg 08/28/22 21:00 08/28/22 20:59 Benztropine Mesylate 1 Mg Tablet PO 1 mg BEDTIME TERESA Administration Medical Decision Making Medical Decision Making [facility] Narrative: Patient with PTSD, depression, is feeling suicidal. Patient had been admitted a week ago after having cut herself. Patient has been hitting herself in the head with her hands. No evidence of concerning head injury. Patient is on a [employer] by [employer]. Patient is medically clear for psychiatric evaluation. [facility] has no available clinicians this evening so the patient will be re-evaluated in the morning Admission/Observation Consideration of admission/observation: Escalation of care including admission/observation considered Consult Healthcare Provider Management of the patient was discussed with: Behavioral Health Provider Lab Data [facility] Lab Attestation statement: I reviewed the patient's lab results. Result Diagrams: 08/28/22 20:43 08/28/22 20:43 Labs: Lab Results 08/28/22 08/28/22 08/28/22 Range/Units 20:08 20:08 20:08 WBC (4.8-10.8) X10*3/uL RBC (4.20-5.50) X10*6/uL Hgb (12.0-16.0) g/dl Hct (37.0-47.0) % MCV (80.0-98.0) fL MCH (27.0-33.0) pg MCHC (31.0-35.0) g/dl RDW (11.0-16.0) % Plt Count (160-400) X10*3/uL MPV (9.4-12.3) fL Immature Gran % (Auto) (0.0-0.4) % Neut % (Auto) (45-73) % Lymph % (Auto) (20-40) % [place] % (Auto) (2-11) % Eos % (Auto) (0-4) % Baso % (Auto) (0-2) % Lymph # (Auto) (1.2-4.9) X10*3/uL [place] # (Auto) (0.1-1.2) X10*3/uL Eos # (Auto) (0.0-0.4) X10*3/uL Baso # (Auto) (0.0-0.2) X10*3/uL Abs Immat Gran (auto) (0.00-0.03) X10*3/uL Absolute Neuts (auto) (2.0-8.3) x10*3/uL Absolute Nucleated RBC (0.0-0.012) X10*3/uL Nucleated RBC % (auto) (0.0-0.2) /100WBC Sodium (135-145) mmol/L Potassium (3.3-5.1) mmol/L Chloride (96-108) mmol/L Carbon Dioxide (22-29) mmol/L Anion Gap (12-20) BUN (9-16) mg/dL Creatinine (0.5-1.4) mg/dL Estim Creat Clear Calc Estimated GFR Random Glucose (60-115) mg/dL Calcium (8.4-10.2) mg/dL Total Bilirubin (0.0-1.0) mg/dL AST (5-31) U/L ALT (0-31) U/L Alkaline Phosphatase (39-117) U/L Total Protein (6.5-8.0) g/dL Albumin (3.5-5.0) g/dL Urine Color Dark Yellow Urine Appearance Cloudy Urine pH 6.5 (5.0-9.0) Ur Specific [place] 1.020 (1.005-1.025) Urine Protein 100 (2+) H (Neg-Trace) mg/dL Urine Glucose (UA) Negative (Negative) mg/dL Urine Ketones 80 (Negative) mg/dL Urine Blood Negative (Negative) Urine Nitrite Negative (Negative) Ur Leukocyte Esterase Negative (Negative) Urine RBC 3-5 H (0-2) /HPF Urine WBC 0-5 (0-5) /HPF Ur Squamous Epith Cells 11-20 (0-2) /HPF Urine Bacteria Trace (None Seen) Hyaline Casts 3-5 (0-2) /LPF Urine Opiates Screen Not Detected (Not Detect) Urine Fentanyl Screen POSITIVE H (Not Detect) Ur Barbiturates Screen Not Detected (Not Detect) Ur Phencyclidine Scrn Not Detected (Not Detect) Ur Amphetamines Screen Not Detected (Not Detect) U Benzodiazepines Scrn Not Detected (Not Detect) Urine Cocaine Screen Not Detected (Not Detect) U Marijuana (THC) Screen Not Detected (Not Detect) Ethyl Alcohol mg/dL COVID-19 (LOGAN) Negative (Negative) COVID-19 Clin Com See Note 08/28/22 08/28/22 Range/Units 20:43 20:43 WBC 7.6 (4.8-10.8) X10*3/uL RBC 4.42 (4.20-5.50) X10*6/uL Hgb 13.8 (12.0-16.0) g/dl Hct 41.3 (37.0-47.0) % MCV 93.4 (80.0-98.0) fL MCH 31.2 (27.0-33.0) pg MCHC 33.4 (31.0-35.0) g/dl RDW 11.9 (11.0-16.0) % Plt Count 320 (160-400) X10*3/uL MPV 9.5 (9.4-12.3) fL Immature Gran % (Auto) 0.4 (0.0-0.4) % Neut % (Auto) 67.2 (45-73) % Lymph % (Auto) 24.7 (20-40) % [place] % (Auto) 5.9 (2-11) % Eos % (Auto) 0.9 (0-4) % Baso % (Auto) 0.9 (0-2) % Lymph # (Auto) 1.9 (1.2-4.9) X10*3/uL [place] # (Auto) 0.5 (0.1-1.2) X10*3/uL Eos # (Auto) 0.1 (0.0-0.4) X10*3/uL Baso # (Auto) 0.1 (0.0-0.2) X10*3/uL Abs Immat Gran (auto) 0.03 (0.00-0.03) X10*3/uL Absolute Neuts (auto) 5.1 (2.0-8.3) x10*3/uL Absolute Nucleated RBC 0.000 (0.0-0.012) X10*3/uL Nucleated RBC % (auto) 0.0 (0.0-0.2) /100WBC Sodium 142 (135-145) mmol/L Potassium 4.3 (3.3-5.1) mmol/L Chloride 107 (96-108) mmol/L Carbon Dioxide 27 (22-29) mmol/L Anion Gap 12 (12-20) BUN 9 (9-16) mg/dL Creatinine 0.80 (0.5-1.4) mg/dL Estim Creat Clear Calc 89.1 Estimated GFR > 60 Random Glucose 96 (60-115) mg/dL Calcium 9.4 (8.4-10.2) mg/dL Total Bilirubin 0.6 (0.0-1.0) mg/dL AST 14 (5-31) U/L ALT 11 (0-31) U/L Alkaline Phosphatase 62 (39-117) U/L Total Protein 6.4 L (6.5-8.0) g/dL Albumin 4.2 (3.5-5.0) g/dL Urine Color Urine Appearance Urine pH (5.0-9.0) Ur Specific [place] (1.005-1.025) Urine Protein (Neg-Trace) mg/dL Urine Glucose (UA) (Negative) mg/dL Urine Ketones (Negative) mg/dL Urine Blood (Negative) Urine Nitrite (Negative) Ur Leukocyte Esterase (Negative) Urine RBC (0-2) /HPF Urine WBC (0-5) /HPF Ur Squamous Epith Cells (0-2) /HPF Urine Bacteria (None Seen) Hyaline Casts (0-2) /LPF Urine Opiates Screen (Not Detect) Urine Fentanyl Screen (Not Detect) Ur Barbiturates Screen (Not Detect) Ur Phencyclidine Scrn (Not Detect) Ur Amphetamines Screen (Not Detect) U Benzodiazepines Scrn (Not Detect) Urine Cocaine Screen (Not Detect) U Marijuana (THC) Screen (Not Detect) Ethyl Alcohol < 10 mg/dL COVID-19 (LOGAN) (Negative) COVID-19 Clin Com Discharge Plan Discharge Clinical Impression: Post-traumatic stress disorder, chronic, Suicidal ideation, Depression Patient Disposition: Still a Patient Prescriptions: No Action multivitamin [Hi-Potency Multivitamin] Tablet 1 tab PO DAILY calcium carbonate 600 mg calcium (1,500 mg) Tablet 600 mg PO DAILY albuterol sulfate [Ventolin HFA] 90 mcg/actuation Hfa Aerosol Inhaler 2 puff INHALATION Q4H PRN (Reason: Shortness Of Breath) hydroxyzine pamoate 25 mg Capsule 25 mg PO TID PRN (Reason: Anxiety) vilazodone 20 mg tablet 30 mg PO DAILY Rx Instructions: Take 1 and 1/2 tab daily. lamotrigine [Lamictal] 200 mg tablet 200 mg PO QAM omeprazole 40 mg capsule,delayed release(DR/EC) 40 mg PO DAILY benztropine 1 mg tablet 1 tab PO BEDTIME aripiprazole 15 mg tablet 7.5 mg PO BEDTIME Myrbetriq 25 mg tablet extended release 24 hr 25 mg PO DAILY Interventions: [place]-Suicide Risk Severity Scale Last Done: 08/28/22 19:41
[2022-08-28 20:48] LABS: MANUAL DIFF FLAG NO
[2022-08-28 20:49] LABS: Basophils Absolute Auto 0.1 X10*3/uL (0.0-0.2); Basophils Percent Auto 0.9 % (0-2); Eosinophils Absolute Auto 0.1 X10*3/uL (0.0-0.4); Eosinophils Percent Auto 0.9 % (0-4); Hematocrit 41.3 % (37.0-47.0); Hemoglobin 13.8 g/dl (12.0-16.0); Imm Gran Abs Auto 0.03 X10*3/uL (0.00-0.03); Imm Gran Pct Auto 0.4 % (0.0-0.4); Lymphocytes Absolute Auto 1.9 X10*3/uL (1.2-4.9); Lymphocytes Percent Auto 24.7 % (20-40); Mean Corpuscular HGB Conc 33.4 g/dl (31.0-35.0); Mean Corpuscular Hemoglobin 31.2 pg (27.0-33.0); Mean Corpuscular Volume 93.4 fL (80.0-98.0); Mean Platelet Volume 9.5 fL (9.4-12.3); Monocytes Absolute Auto 0.5 X10*3/uL (0.1-1.2); Monocytes Percent Auto 5.9 % (2-11); Neutrophils Absolute Auto 5.1 x10*3/uL (2.0-8.3); Neutrophils Percent Auto 67.2 % (45-73); Platelet Count 320 X10*3/uL (160-400); Red Blood Count 4.42 X10*6/uL (4.20-5.50); Red Cell Distribution Width 11.9 % (11.0-16.0); White Blood Count 7.6 X10*3/uL (4.8-10.8)
[2022-08-28] MEDS: ARIPiprazole 15 MG TABLET 7.5 MG PO (20:59)
[2022-08-28] MEDS: Benztropine Mesylate 1 MG TABLET PO (20:59)
[2022-08-28 21:22] LABS: Alanine Aminotransferase 11 U/L (0-31); Albumin Level 4.2 g/dL (3.5-5.0); Alkaline Phosphatase 62 U/L (39-117); Anion Gap 12 (12-20); Aspartate Amino Transferase 14 U/L (5-31); Bilirubin Total 0.6 mg/dL (0.0-1.0); Blood Urea Nitrogen 9 mg/dL (9-16); Calcium 9.4 mg/dL (8.4-10.2); Carbon Dioxide 27 mmol/L (22-29); Chloride 107 mmol/L (96-108); Creatinine Clr Calc Pharmacy 89.1; Estimated Glomerular Filt Rate > 60; Ethanol < 10 mg/dL; Glucose Random 96 mg/dL (60-115); Potassium 4.3 mmol/L (3.3-5.1); Sodium 142 mmol/L (135-145); Total Protein 6.4 g/dL (6.5-8.0)
[2022-08-29] MEDS: Cyclobenzaprine HCl 5 MG TABLET PO (00:12)
[2022-08-29 00:20] VITALS: BP 109/81; PULSE 80; RESP 17; TEMP 37.1; O2SAT 100
--- NOTE | 2022-08-29 05:42 | PC.NURSE ---
Patient slept through the night, no distress observed/reported, behavior non concerning, VSS, medication compliant, patient was seen by care team, disposition is pending, patient will be re-evaluated in the morning, will continue to monitor.
[2022-08-29] MEDS: Omeprazole 40 MG CAPSULE.DR PO (06:46)
--- NOTE | 2022-08-29 07:26 | PC.NURSE ---
patient appears to remain asleep at present respirations are even and unlabored patient appears in no distress
[2022-08-29 08:06] VITALS: BP 108/73; PULSE 94; RESP 14; TEMP 36.9; O2SAT 97
[2022-08-29] MEDS: lamoTRIgine 100 MG TABLET 200 MG PO (09:11)
[2022-08-29] MEDS: Multivitamin TABLET 1 TAB PO (09:12)
[2022-08-29] MEDS: Mirabegron 25 MG TAB.ER.24H PO (09:12)
[2022-08-29] MEDS: Vilazodone HCL 10 MG TABLET 30 MG PO (09:12)
== END 2022-08-29 11:22 | disposition home or self-care (01) ==
PROVIDERS: Emergency Medicine; Emergency Provider Emergency Medicine
DX: F33.1 Major depressive disorder, recurrent, moderate (principal); R45.851 Suicidal ideations; F43.10 Post-traumatic stress disorder, unspecified; Z20.822 Contact with and (suspected) exposure to COVID-19; Z79.899 Other long term (current) drug therapy
CPT/HCPCS: 80053; 80307; 81001; 82077; 85025; 87635; 99285

== ENCOUNTER 2022-11-19 17:14 | Emergency (ER) | payer MEDICARE, MEDICAID, SELFPAY ==
[2022-11-19 17:19] VITALS: BP 118/79; BP 130/80; PULSE 100; PULSE 94; RESP 16; TEMP 36.9; O2SAT 100; O2SAT 98; BMI 22.8
[2022-11-19 17:46] LABS: Appearance Urine Cloudy; Color Urine Yellow; Glucose Urine UA Negative (Negative); Leukocyte Esterase Urine Negative (Negative); Nitrite Urine Negative (Negative); Urine Blood Negative (Negative); Urine Ketones 15 mg/dL (Negative); Urine Protein Negative (Neg-Trace)
[2022-11-19 17:49] LABS: UPreg QC Valid YES; Urine Pregnancy NEGATIVE (NEGATIVE)
[2022-11-19 17:54] LABS: Amphetamine Screen Urine Not Detected (Not Detect); Barbiturates, Urine Not Detected (Not Detect); Benzodiazepines Screen Urine Not Detected (Not Detect); Cannabinoid Screen Urine Not Detected (Not Detect); Cocaine Screen Urine Not Detected (Not Detect); Fentanyl, urine POSITIVE (Not Detect); Opiate Screen Urine Not Detected (Not Detect); Phencyclidine Screen Urine Not Detected (Not Detect)
[2022-11-19 18:13] LABS: COVID-19 Test Negative (Negative); IDNOW Serial# BCCEAD1C
--- NOTE | 2022-11-19 18:13 | ED_ITS ---
HPI - General Adult General Chief complaint: Psychiatric Symptoms Stated complaint: SI Time Seen by Provider: 11/19/22 18:12 Source: patient and EMS Mode of arrival: EMS Limitations: no limitations History of Present Illness HPI narrative: Patient is a 32 year old assigned female at with a history of PTSD and MDD presenting to the emergency department today with suicidal ideation. Patient states that she has been hearing her brothers voice telling her to kill herself. Patient states that she does not have a plan at this time. Patient states that she does not feel safe at her current intermediate. Patient denies any dizziness, lightheadedness, abdominal pain, nausea, vomiting, fever, chills, blurry vision, double vision, loss of vision, chest pain, difficulty breathing, shortness of breath, back pain, night sweats, pain with urination, increased urinary frequency, increased urinary urgency, blood in her urine or stool, syncope or a near syncopal episode, recent trauma or falls, bowel incontinence, bladder incontinence, bowel retention, bladder retention, or any other complaints at this time. Onset (ago): day(s) Severity: mild Severity scale (1-10): 3 Relieving factors: none Exacerbating factors: none Associated symptoms: denies other symptoms Treatments prior to arrival: none Related Data Home Medications Medication Instructions Recorded Confirmed albuterol 90 mcg/actuation aerosol 180 mcg inhalation Q4H PRN 11/19/22 11/19/22 inhaler Shortness Of Breath aripiprazole 15 mg tablet 15 mg PO BEDTIME 11/19/22 11/19/22 benztropine 1 mg tablet 1 mg PO BEDTIME 11/19/22 11/19/22 calcium carbonate 600 mg calcium 600 mg PO BEDTIME 11/19/22 11/19/22 (1,500 mg) tablet hydroxyzine pamoate 25 mg capsule 25 mg PO BID PRN Anxiety 11/19/22 11/19/22 hydroxyzine pamoate 50 mg capsule 50 mg PO BEDTIME 11/19/22 11/19/22 (Vistaril) lamotrigine 200 mg tablet 200 mg PO QAM 11/19/22 11/19/22 (Lamictal) mirabegron 50 mg tablet,extended 50 mg PO QAM 11/19/22 11/19/22 release 24 hr (Myrbetriq) omeprazole 40 mg capsule,delayed 40 mg PO QAM 11/19/22 11/19/22 release vilazodone 10 mg tablet (Viibryd) 10 mg PO QAM 11/19/22 11/19/22 vilazodone 20 mg tablet (Viibryd) 20 mg PO QAM 11/19/22 11/19/22 zolpidem 10 mg tablet 10 mg PO BEDTIME 11/19/22 11/19/22 Allergies Allergy/AdvReac Type Severity Reaction Status Date / Time penicillin G Allergy Severe Swelling Verified 08/29/22 06:44 lactose Allergy Intermediate Stomach Verified 08/29/22 06:47 Upset amoxicillin [From AUGMENTIN] AdvReac Severe SWOLLEN Verified 08/29/22 06:44 THROAT clavulanic acid AdvReac Severe SWOLLEN Unverified 08/29/22 06:47 [From AUGMENTIN] THROAT Penicillins [PENICILLINS] AdvReac Severe Swelling Unverified 08/29/22 06:44 fluoxetine [From PROZAC] AdvReac Intermediate RASH Verified 08/29/22 06:43 Review of Systems Constitutional: Constitutional: Reports no additional constitutional complaint s, Denies chills, Denies fever(s) and Denies night sweats Eyes: Eyes: Reports no additional eye complaints, Denies blurry vision, Denies change in vision, Denies diplopia, Denies eye discharge, Denies loss of vision and Denies eye pain ENT: Denies dizziness Cardiovascular: Cardiovascular: Reports no additional cardiovascular complaints, Denies chest pain, Denies lightheadedness, Denies Loss of Consciousness and Denies dyspnea Respiratory: Respiratory: Reports no additional respiratory complaints and Den ies dyspnea Gastrointestinal: Gastrointestinal: Reports no additional gastrointestinal complaints, Denies abdominal pain, Denies melena, Denies hematochezia, Denies change in bowel habits and Denies change in stool character Genitourinary: Genitourinary: Denies hematuria, Denies urinary frequency, Denies dysuria, Denies urinary incontinence, Denies urinary hesitancy and Denies urinary urgency Musculoskeletal: Musculoskeletal: Reports no additional musculoskeletal complaints, Denies numbness and Denies tingling Neurologic: Denies dizziness, Denies loss of vision, Denies numbness and Denies tingling Psychiatric: Psychiatric: Reports no additional psychiatric complaints and Reports suicidal ideation Endocrine: Endocrine: Reports no additional endocrine complaints Hematologic/Lymphatic: Hematologic/Lymphatic: Reports no additional hematol ogic/lymphatic complaints Allergic/Immunologic: Allergic/Immunologic: Reports no additional allergic/immunologic complaints [facility] Past Medical History Attestation statement: The following information was validated with the patient. Source: old records reviewed and nursing notes reviewed Medical History Asthma Migraine Retts syndrome Social History Social History Household Members: Other Household Members Other:: Residential Home/Housemates Alcohol intake: never Patient Tobacco Use Status: Former Tobacco user Advance Directives: No Advance Directives Information Provided: No Physical Exam ED Vital Signs: Vital Signs - 24 hr 11/19/22 17:19 Temperature 98.4 F Pulse Rate 100 Respiratory Rate 16 Blood Pressure 118/79 Pulse Oximetry 98 Oxygen Delivery Method Room Air BMI result Body Mass Index 22.8 Const General: cooperative, no acute distress, alert and awake Nutritional Appearance: well nourished Orientation/consciousness: patient oriented x3 Limitations: no limitations HENMT Head: Yes normal to inspection and Yes atraumatic Ears: hearing grossly normal bilaterally and external ears normal General nose exam: Normal external nose present, no nasal discharge noted and no epistaxis Face and sinus: Yes normal facial exam, No abrasion and No laceration Mouth: Normal oral and palatal mucosa present, no drooling and no muffled voice Eyes General: appearance normal, both eyes and all related structures Periorbital: periorbital findings normal Eyelids: Yes eyelids normal Conjunctivae: conjunctivae normal Pupils: Equal, round and reactive pupils present EOM: EOMs intact bilaterally Neck Neck: Yes normal visual inspection, Yes full ROM and Yes no lymphadenopathy Chest Chest palpation & inspection: normal inspection of the chest Resp Effort & Inspection: normal respiratory effort and able to speak in complete sentences Auscultation: clear to auscultation bilaterally Cardio Rate: regular rate Rhythm: regular rhythm GI Inspection: Yes normal to inspection Palpation (GI): Soft to palpation, not firm, nontender and no guarding Neuro General: patient oriented x3 and moves all extremities Cranial nerves: Yes Equal, round and reactive pupils present Cognition (Neuro): normal cognition Motor exam (neuro): 5/5 motor strength present throughout Sensory Exam: Normal double simultaneous stimulation for sensation Coordination: [id number] test normal Extrem General: Yes normal to inspection, Yes full ROM and Yes capillary refill normal Psych Appearance: grossly normal Mental Status: mental status grossly normal Affect: Sad affect present Attitude: cooperative Thought content: Suicidality present Medications Administered Generic Name Dose Route Start Last Admin Trade Name Lizzy PRN Reason Stop Dose Admin Aripiprazole 15 mg 11/19/22 21:00 11/19/22 19:50 Aripiprazole 15 Mg Tablet PO 15 mg BEDTIME TERESA Administration Benztropine Mesylate 1 mg 11/19/22 21:00 11/19/22 19:50 Benztropine Mesylate 1 Mg Tablet PO 1 mg BEDTIME TERESA Administration Calcium Carbonate 500 mg 11/19/22 21:00 11/19/22 19:50 Calcium Carbonate 500 Mg Tablet PO 500 mg BEDTIME TERESA Administration Hydroxyzine HCl 50 mg 11/19/22 21:00 11/19/22 19:50 Hydroxyzine Hcl 50 Mg Tablet PO 50 mg BEDTIME TERESA Administration Zolpidem Tartrate 10 mg 11/19/22 21:00 11/19/22 19:50 Zolpidem Tartrate 5 Mg Tablet PO 10 mg BEDTIME TERESA Administration Medical Decision Making Medical Decision Making [facility] Narrative: Patient is a 32 year old assigned female at with a history of PTSD and MDD presenting to the emergency department today with suicidal ideation. Patient's physical exam showed a sad individual but was otherwise unremarkable. Patient's blood work was unremarkable. Patient's urine showed no acute process. I explained my physical exam findings as well as all test results to the patient. I answered all questions asked by the patient. Patient is currently awaiting evaluation by [facility]. Differential Diagnosis Differential Diagnoses: The differential diagnosis associated with the presentation includes suicidal ideation, PTSD, MDD Lab Data [facility] Lab Attestation statement: I reviewed the patient's lab results. 11/19/22 18:21 11/19/22 18:21 Labs: Lab Results 11/19/22 11/19/22 11/19/22 Range/Units 17:34 17:34 17:34 WBC (4.8-10.8) X10*3/uL RBC (4.20-5.50) X10*6/uL Hgb (12.0-16.0) g/dl Hct (37.0-47.0) % MCV (80.0-98.0) fL MCH (27.0-33.0) pg MCHC (31.0-35.0) g/dl RDW (11.0-16.0) % Plt Count (160-400) X10*3/uL MPV (9.4-12.3) fL Immature Gran % (Auto) (0.0-0.4) % Neut % (Auto) (45-73) % Lymph % (Auto) (20-40) % [place] % (Auto) (2-11) % Eos % (Auto) (0-4) % Baso % (Auto) (0-2) % Lymph # (Auto) (1.2-4.9) X10*3/uL [place] # (Auto) (0.1-1.2) X10*3/uL Eos # (Auto) (0.0-0.4) X10*3/uL Baso # (Auto) (0.0-0.2) X10*3/uL Abs Immat Gran (auto) (0.00-0.03) X10*3/uL Absolute Neuts (auto) (2.0-8.3) x10*3/uL Absolute Nucleated RBC (0.0-0.012) X10*3/uL Nucleated RBC % (auto) (0.0-0.2) /100WBC Sodium (135-145) mmol/L Potassium (3.3-5.1) mmol/L Chloride (96-108) mmol/L Carbon Dioxide (22-29) mmol/L Anion Gap (12-20) BUN (9-16) mg/dL Creatinine (0.5-1.4) mg/dL Estim Creat Clear Calc Estimated GFR Random Glucose (60-115) mg/dL Calcium (8.4-10.2) mg/dL Total Bilirubin (0.0-1.0) mg/dL AST (5-31) U/L ALT (0-31) U/L Alkaline Phosphatase (39-117) U/L Total Protein (6.5-8.0) g/dL Albumin (3.5-5.0) g/dL Urine Color Yellow Urine Appearance Cloudy Urine pH 6.0 (5.0-9.0) Ur Specific [place] 1.020 (1.005-1.025) Urine Protein Negative (Neg-Trace) mg/dL Urine Glucose (UA) Negative (Negative) mg/dL Urine Ketones 15 (Negative) mg/dL Urine Blood Negative (Negative) Urine Nitrite Negative (Negative) Ur Leukocyte Esterase Negative (Negative) Urine Test (NEGATIVE) Urine Opiates Screen Not Detected (Not Detect) Urine Fentanyl Screen POSITIVE H (Not Detect) Ur Barbiturates Screen Not Detected (Not Detect) Ur Phencyclidine Scrn Not Detected (Not Detect) Ur Amphetamines Screen Not Detected (Not Detect) U Benzodiazepines Scrn Not Detected (Not Detect) Urine Cocaine Screen Not Detected (Not Detect) U Marijuana (THC) Screen Not Detected (Not Detect) COVID-19 (LOGAN) Negative (Negative) COVID-19 Clin Com See Note 11/19/22 11/19/22 11/19/22 Range/Units 17:34 18:21 18:21 WBC 7.7 (4.8-10.8) X10*3/uL RBC 4.59 (4.20-5.50) X10*6/uL Hgb 14.0 (12.0-16.0) g/dl Hct 41.7 (37.0-47.0) % MCV 90.8 (80.0-98.0) fL MCH 30.5 (27.0-33.0) pg MCHC 33.6 (31.0-35.0) g/dl RDW 12.0 (11.0-16.0) % Plt Count 303 (160-400) X10*3/uL MPV 9.2 L (9.4-12.3) fL Immature Gran % (Auto) 0.3 (0.0-0.4) % Neut % (Auto) 67.9 (45-73) % Lymph % (Auto) 23.9 (20-40) % [place] % (Auto) 6.0 (2-11) % Eos % (Auto) 1.0 (0-4) % Baso % (Auto) 0.9 (0-2) % Lymph # (Auto) 1.9 (1.2-4.9) X10*3/uL [place] # (Auto) 0.5 (0.1-1.2) X10*3/uL Eos # (Auto) 0.1 (0.0-0.4) X10*3/uL Baso # (Auto) 0.1 (0.0-0.2) X10*3/uL Abs Immat Gran (auto) 0.02 (0.00-0.03) X10*3/uL Absolute Neuts (auto) 5.3 (2.0-8.3) x10*3/uL Absolute Nucleated RBC 0.000 (0.0-0.012) X10*3/uL Nucleated RBC % (auto) 0.0 (0.0-0.2) /100WBC Sodium 140 (135-145) mmol/L Potassium 3.9 (3.3-5.1) mmol/L Chloride 103 (96-108) mmol/L Carbon Dioxide 27 (22-29) mmol/L Anion Gap 14 (12-20) BUN 13 (9-16) mg/dL Creatinine 0.80 (0.5-1.4) mg/dL Estim Creat Clear Calc 89.1 Estimated GFR > 60 Random Glucose 113 (60-115) mg/dL Calcium 9.7 (8.4-10.2) mg/dL Total Bilirubin 0.6 (0.0-1.0) mg/dL AST 13 (5-31) U/L ALT 12 (0-31) U/L Alkaline Phosphatase 65 (39-117) U/L Total Protein 6.7 (6.5-8.0) g/dL Albumin 4.5 (3.5-5.0) g/dL Urine Color Urine Appearance Urine pH (5.0-9.0) Ur Specific [place] (1.005-1.025) Urine Protein (Neg-Trace) mg/dL Urine Glucose (UA) (Negative) mg/dL Urine Ketones (Negative) mg/dL Urine Blood (Negative) Urine Nitrite (Negative) Ur Leukocyte Esterase (Negative) Urine Test NEGATIVE (NEGATIVE) Urine Opiates Screen (Not Detect) Urine Fentanyl Screen (Not Detect) Ur Barbiturates Screen (Not Detect) Ur Phencyclidine Scrn (Not Detect) Ur Amphetamines Screen (Not Detect) U Benzodiazepines Scrn (Not Detect) Urine Cocaine Screen (Not Detect) U Marijuana (THC) Screen (Not Detect) COVID-19 (LOGAN) (Negative) COVID-19 Clin Com Independent Historian Clinical information obtained from an independent historian. History obtained from or confirmed by: EMS Discharge Plan Discharge Clinical Impression: Post-traumatic stress disorder, chronic, MDD (major depressive disorder), recurrent episode, moderate, Suicidal ideation Patient Disposition: Still a Patient Prescriptions: No Action benztropine 1 mg Tablet 1 mg PO BEDTIME aripiprazole 15 mg Tablet 15 mg PO BEDTIME lamotrigine [Lamictal] 200 mg Tablet 200 mg PO QAM hydroxyzine pamoate 25 mg Capsule 25 mg PO BID PRN (Reason: Anxiety) vilazodone [Viibryd] 20 mg Tablet 20 mg PO QAM Rx Instructions: must administer with a meal/food Take with 10 mg Viibryd in am vilazodone [Viibryd] 10 mg Tablet 10 mg PO QAM Rx Instructions: must administer with a meal/food take in am with 20 mg viibryd hydroxyzine pamoate [Vistaril] 50 mg Capsule 50 mg PO BEDTIME zolpidem 10 mg Tablet 10 mg PO BEDTIME calcium carbonate 600 mg calcium (1,500 mg) Tablet 600 mg PO BEDTIME Myrbetriq 50 mg Tablet Extended Release 24 Hr 50 mg PO QAM omeprazole 40 mg Capsule,Delayed Release(Dr/Ec) 40 mg PO QAM Ventolin 90 mcg/actuation Aerosol 180 mcg INHALATION Q4H PRN (Reason: Shortness Of Breath)
[2022-11-19 18:30] LABS: MANUAL DIFF FLAG NO
[2022-11-19 18:42] LABS: Basophils Absolute Auto 0.1 X10*3/uL (0.0-0.2); Basophils Percent Auto 0.9 % (0-2); Eosinophils Absolute Auto 0.1 X10*3/uL (0.0-0.4); Hematocrit 41.7 % (37.0-47.0); Imm Gran Abs Auto 0.02 X10*3/uL (0.00-0.03); Imm Gran Pct Auto 0.3 % (0.0-0.4); Lymphocytes Absolute Auto 1.9 X10*3/uL (1.2-4.9); Lymphocytes Percent Auto 23.9 % (20-40); Mean Corpuscular HGB Conc 33.6 g/dl (31.0-35.0); Mean Corpuscular Hemoglobin 30.5 pg (27.0-33.0); Mean Corpuscular Volume 90.8 fL (80.0-98.0); Mean Platelet Volume 9.2 fL (9.4-12.3); Monocytes Absolute Auto 0.5 X10*3/uL (0.1-1.2); Neutrophils Absolute Auto 5.3 x10*3/uL (2.0-8.3); Neutrophils Percent Auto 67.9 % (45-73); Platelet Count 303 X10*3/uL (160-400); Red Blood Count 4.59 X10*6/uL (4.20-5.50); White Blood Count 7.7 X10*3/uL (4.8-10.8)
[2022-11-19 18:56] LABS: Alanine Aminotransferase 12 U/L (0-31); Albumin Level 4.5 g/dL (3.5-5.0); Alkaline Phosphatase 65 U/L (39-117); Anion Gap 14 (12-20); Aspartate Amino Transferase 13 U/L (5-31); Bilirubin Total 0.6 mg/dL (0.0-1.0); Blood Urea Nitrogen 13 mg/dL (9-16); Calcium 9.7 mg/dL (8.4-10.2); Carbon Dioxide 27 mmol/L (22-29); Chloride 103 mmol/L (96-108); Creatinine Clr Calc Pharmacy 89.1; Estimated Glomerular Filt Rate > 60; Glucose Random 113 mg/dL (60-115); Potassium 3.9 mmol/L (3.3-5.1); Sodium 140 mmol/L (135-145); Total Protein 6.7 g/dL (6.5-8.0)
[2022-11-19] MEDS: Benztropine Mesylate 1 MG TABLET PO (19:50)
[2022-11-19] MEDS: Zolpidem Tartrate 5 MG TABLET 10 MG PO (19:50)
[2022-11-19] MEDS: ARIPiprazole 15 MG TABLET PO (19:50)
[2022-11-19] MEDS: hydrOXYzine HCL 50 MG TABLET PO (19:50)
[2022-11-19 21:53] LABS: Ethanol < 10 mg/dL
[2022-11-19 23:24] VITALS: BP 112/78; PULSE 97; RESP 15; TEMP 36.6; O2SAT 100
--- NOTE | 2022-11-20 00:15 | PC.NURSE ---
this rn assumed care of pt @ [id number]. pt calm and cooperative. provided with warm blanket and snack. pt formerly in pod
[2022-11-20] MEDS: hydrOXYzine HCL 25 MG TABLET PO (03:03)
--- NOTE | 2022-11-20 04:22 | PC.NURSE ---
Addendum entered by Claudia Pardo 11/20/22 04:25: Pt. awakened and up to use bathroom. Original Note: Pt. reporting some stiffness and discomfort in her left side. Pt. OOB and ambulated around the ED with this RN. Hot pack provided for comfort. Pt. medicated with PRN hydroxyzine from NOV for anxiety with good effect. Pt. now sleeping, respirations even and unlabored, no distress noted.
[2022-11-20] MEDS: Albuterol Sulfate 90 MCG 8 GM INHALER 2 PUFF INHALE (05:32)
--- NOTE | 2022-11-20 05:39 | PC.NURSE ---
pt asked that this rn come to room. pt reports to this rn she would like to use prn ventolin inhaler. pt medicated according to mar. interceptor operator in place. pt requested sanitary pad, this rn provided pt with pad at this time
[2022-11-20] MEDS: Omeprazole 40 MG CAPSULE.DR PO (06:04)
[2022-11-20 06:32] VITALS: BP 125/79; PULSE 87; RESP 17; TEMP 37.1; O2SAT 100
--- NOTE | 2022-11-20 07:30 | PC.NURSE ---
Patient sitting in bed, breakfast tray next to them but patient not eating at this time. When asked if the patient is having SI thoughts patient refuses to answer stating that she doesn't want to get punished for her answer. This nurse assured patient that she would not get punished for her answer but patient is still not wanting to answer question. Patient states that her roommates are mean to her and that she doesn't want to go back to where she was and doesn't feel that people believe her when she tells them things. Patient also stated that she was hearing voices before she came in; when asked what the voices were saying to her patient refused to answer and started to cry. Patient provided support and given tissues. Patient also stating that there are people that she doesn't want to be able to come visit her and this nurse assured her that anyone that comes to see her would not be able to come in without her consent.
[2022-11-20] MEDS: lamoTRIgine 100 MG TABLET 200 MG PO (08:17)
[2022-11-20] MEDS: Mirabegron 50 MG TAB.ER.24H PO (08:18)
--- NOTE | 2022-11-20 08:25 | PC.NURSE ---
Patient walked around the ED with staff to stretch my legs. Patient states that she does want to hurt herself but does not have a plan in place at this time. Patient reiterating that she does not want to go back to her detention because her housemates hate me. Patient is calm and cooperative.
[2022-11-20] MEDS: Vilazodone HCL 20 MG TABLET PO (08:52)
[2022-11-20] MEDS: Vilazodone HCL 10 MG TABLET PO (08:53)
--- NOTE | 2022-11-20 11:16 | PC.NURSE ---
Patient tearful and stating that she wants to sign herself out, this nurse talked to patient explaining this is the safest place for her right. called care team who will come and speak to the patient. Patient also stating that she wanted clean clothes which this nurse provided for her.
[2022-11-20 11:36] VITALS: BP 115/80; PULSE 85; RESP 16; TEMP 36.9; O2SAT 100
[2022-11-20 15:01] VITALS: BP 121/85; PULSE 95; RESP 16; O2SAT 100
--- NOTE | 2022-11-20 15:24 | PC.NURSE ---
Spoke to the senior program manager at the nursing home the patient comes from. According to the director a staff member will be at this facility to bring patient back to nursing home in a half hour to hour.
== END 2022-11-20 15:43 | disposition home or self-care (01) ==
PROVIDERS: Emergency Provider Student in an Organized Health Care Education/Training Program; PCP Internal Medicine
DX: F60.3 Borderline personality disorder (principal); F41.9 Anxiety disorder, unspecified; F43.12 Post-traumatic stress disorder, chronic; F33.1 Major depressive disorder, recurrent, moderate; F84.2 Rett's syndrome; R45.851 Suicidal ideations; Z20.822 Contact with and (suspected) exposure to COVID-19; Z87.891 Personal history of nicotine dependence; Z79.899 Other long term (current) drug therapy
CPT/HCPCS: 80053; 80307; 81003; 81025; 82077; 85025; 87635; 99284; 99285

== ENCOUNTER 2022-12-22 17:43 | Emergency (ER) | payer MEDICARE, MEDICAID, SELFPAY ==
[2022-12-22 17:56] VITALS: BP 118/88; BP 119/80; PULSE 107; RESP 16; O2SAT 97; BMI 22.4
[2022-12-22 18:42] LABS: Amphetamine Screen Urine Not Detected (Not Detect); Barbiturates, Urine Not Detected (Not Detect); Benzodiazepines Screen Urine Not Detected (Not Detect); Cannabinoid Screen Urine Not Detected (Not Detect); Cocaine Screen Urine Not Detected (Not Detect); Fentanyl, urine POSITIVE (Not Detect); Opiate Screen Urine Not Detected (Not Detect); Phencyclidine Screen Urine Not Detected (Not Detect)
[2022-12-22 18:55] LABS: COVID-19 Test Negative (Negative); IDNOW Serial# 08D9AD1C
[2022-12-22 18:56] LABS: MANUAL DIFF FLAG NO
[2022-12-22 18:59] LABS: Basophils Absolute Auto 0.1 X10*3/uL (0.0-0.2); Basophils Percent Auto 0.9 % (0-2); Eosinophils Absolute Auto 0.1 X10*3/uL (0.0-0.4); Eosinophils Percent Auto 1.2 % (0-4); Hematocrit 42.3 % (37.0-47.0); Hemoglobin 14.1 g/dl (12.0-16.0); Imm Gran Abs Auto 0.02 X10*3/uL (0.00-0.03); Imm Gran Pct Auto 0.3 % (0.0-0.4); Lymphocytes Absolute Auto 2.3 X10*3/uL (1.2-4.9); Lymphocytes Percent Auto 34.7 % (20-40); Mean Corpuscular HGB Conc 33.3 g/dl (31.0-35.0); Mean Corpuscular Hemoglobin 30.1 pg (27.0-33.0); Mean Corpuscular Volume 90.4 fL (80.0-98.0); Monocytes Absolute Auto 0.4 X10*3/uL (0.1-1.2); Monocytes Percent Auto 6.2 % (2-11); Neutrophils Absolute Auto 3.7 x10*3/uL (2.0-8.3); Neutrophils Percent Auto 56.7 % (45-73); Platelet Count 328 X10*3/uL (160-400); Red Blood Count 4.68 X10*6/uL (4.20-5.50); Red Cell Distribution Width 12.1 % (11.0-16.0); White Blood Count 6.6 X10*3/uL (4.8-10.8)
[2022-12-22 19:15] LABS: Ethanol < 10 mg/dL
[2022-12-22 19:16] LABS: Alanine Aminotransferase 11 U/L (0-31); Albumin Level 4.4 g/dL (3.5-5.0); Alkaline Phosphatase 66 U/L (39-117); Anion Gap 8 (12-20); Aspartate Amino Transferase 12 U/L (5-31); Bilirubin Total 0.3 mg/dL (0.0-1.0); Blood Urea Nitrogen 15 mg/dL (9-16); Calcium 9.4 mg/dL (8.4-10.2); Carbon Dioxide 30 mmol/L (22-29); Chloride 109 mmol/L (96-108); Creatinine Clr Calc Pharmacy 84.9; Estimated Glomerular Filt Rate > 60; Glucose Random 154 mg/dL (60-115); Potassium 4.2 mmol/L (3.3-5.1); Sodium 143 mmol/L (135-145); Total Protein 6.4 g/dL (6.5-8.0)
--- NOTE | 2022-12-22 19:33 | ED_ITS ---
HPI - Psych General Chief Complaint: Psychiatric Symptoms Stated Complaint: SI, from care home Time Seen by Provider: 12/22/22 17:45 Source: patient Mode of arrival: EMS Limitations: no limitations History of Present Illness HPI Narrative: Patient comes to the emergency room via EMS. Patient states that she was in her care home, asked the staff to give her soap or body wash to get cleaned, patient states that she was told to take a shower only with water which made her very upset. Patient states that she ran out of her care home, became very upset, PD found her and told them that she wanted to run and jump into oncoming traffic. Patient was Section 12 by police department. Related Data Home Medications Medication Instructions Recorded Confirmed albuterol 90 mcg/actuation aerosol 180 mcg inhalation Q4H PRN 11/19/22 12/22/22 inhaler Shortness Of Breath aripiprazole 15 mg tablet 15 mg PO BEDTIME 11/19/22 12/22/22 benztropine 1 mg tablet 1 mg PO BEDTIME 11/19/22 12/22/22 calcium carbonate 600 mg calcium 600 mg PO BEDTIME 11/19/22 12/22/22 (1,500 mg) tablet hydroxyzine pamoate 25 mg capsule 25 mg PO BID PRN Anxiety 11/19/22 12/22/22 hydroxyzine pamoate 50 mg capsule 50 mg PO BEDTIME 11/19/22 12/22/22 (Vistaril) lamotrigine 200 mg tablet 200 mg PO QAM 11/19/22 12/22/22 (Lamictal) mirabegron 50 mg tablet,extended 50 mg PO QAM 11/19/22 12/22/22 release 24 hr (Myrbetriq) omeprazole 40 mg capsule,delayed 40 mg PO QAM 11/19/22 12/22/22 release vilazodone 10 mg tablet (Viibryd) 10 mg PO QAM 11/19/22 12/22/22 vilazodone 20 mg tablet (Viibryd) 20 mg PO QAM 11/19/22 12/22/22 zolpidem 10 mg tablet 10 mg PO BEDTIME 11/19/22 12/22/22 Allergies Allergy/AdvReac Type Severity Reaction Status Date / Time penicillin G Allergy Severe Swelling Verified 08/29/22 06:44 lactose Allergy Intermediate Stomach Verified 08/29/22 06:47 Upset amoxicillin [From AUGMENTIN] AdvReac Severe SWOLLEN Verified 08/29/22 06:44 THROAT clavulanic acid AdvReac Severe SWOLLEN Verified 11/20/22 08:24 [From AUGMENTIN] THROAT Penicillins [PENICILLINS] AdvReac Severe Swelling Verified 11/20/22 08:24 fluoxetine [From PROZAC] AdvReac Intermediate RASH Verified 08/29/22 06:43 Review of Systems Review of Systems: Constitutional : No Weight loss, No Fever, No Chills, No Night Sweats, No Fatigue, No Malaise ENT/Mouth : No Hearing loss, No Ear Pain, No Nasal Congestion, No Sinus Pain, No Hoarseness, No sore throat, No Rhinorrhea, No Swallowing Difficulty Eyes: No Eye Pain, No Swelling, No Redness, No Foreign Body, No Discharge, No Vision Changes Cardiovascular : No Chest Pain, No SOB, No Dyspnea on Exertion, No Orthopnea, No Edema, No Palpitations Respiratory : No Cough, No Sputum, No Wheezing, No Smoke Exposure, No Dyspnea Gastrointestinal : No Nausea, No Vomiting, No Diarrhea, No Constipation, No abdominal Pain, No Hematochezia, No Melena Genitourinary : no irregular bleeding, No Dysuria, No Urinary Frequency, No Hematuria, No Urinary Incontinence, No Urgency, No Flank Pain, No Urinary Flow Changes, No Hesitancy Musculoskeletal : No joint pain, No Myalgias, No Joint Swelling Skin : No Skin Lesions, No rash Neuro : No Weakness, No Numbness, No Paresthesias, No Loss of Consciousness, No Dizziness, No Headache Psych : No Anxiety/Panic, No Depression, No SI/HI/AH/VH, No Social Issues, Heme/Lymph: No Bruising, No Bleeding,No Lymphadenopathy Endocrine : No Polyuria, No Polydipsia, No Temperature Intolerance [facility] Past Medical History Medical History (Updated 12/22/22 @ 20:01 by Mirian Haq MD) Asthma MDD (major depressive disorder), recurrent episode, moderate Migraine Post-traumatic stress disorder, chronic Retts syndrome Social History Social History Household Members: Other Household Members Other:: Residential Home/Housemates Alcohol intake: never Patient Tobacco Use Status: Former Tobacco user Advance Directives: No Advance Directives Information Provided: No Physical Exam Vital Signs: Vital Signs: Last Vital Signs Pulse 107 H 12/22/22 17:56 Resp 16 12/22/22 17:56 BP 119/80 12/22/22 17:56 Pulse Ox 97 12/22/22 17:56 O2 Del Method Room Air 12/22/22 17:56 BMI result Body Mass Index 22.4 Const: Other: Appearance: Alert. Oriented X3. No acute distress. Eyes: Pupils equal, round and reactive to light. ENT: Pharynx normal. Neck: Normal inspection. Neck supple. No lymph nodes noted. No crepitus CVS: Normal heart rate and rhythm. Pulses normal. Normal S1 and S2 Respiratory: No respiratory distress. Breath sounds normal. No Wheezing. No rales Abdomen: Soft and nontender. No rigidity. No distention. Skin: Skin warm and dry. Normal skin color. Normal skin turgor. Extremities: No lower extremity edema. No Lacerations. No Rash Neuro: Oriented X 3. No motor deficit. No sensory deficit. Moving all extremities. No slurred speech. CN 2 through 12 grossly intact Psych: calm, cooperative, normal affect Course Course Course Narrative: -I reviewed the patient's labs, patient did positive for fentanyl of which may be a false-positive for her psychiatric medications. -patient is on a Section 12 which was started by police department -care consult pending -physician supervision set 19:30 Medications Administered Discontinued Medications Generic Name Dose Route Start Last Admin Trade Name Freq PRN Reason Stop Dose Admin Ondansetron HCl 4 mg 12/22/22 19:27 12/22/22 19:38 Ondansetron Odt 4 Mg Tab.Rapdis TRANSLINGU 12/22/22 19:28 4 mg ONCE ONE Administration Medical Decision Making Lab Data 12/22/22 18:50 12/22/22 18:50 Labs: Lab Results 12/22/22 12/22/22 12/22/22 Range/Units 18:24 18:24 18:50 WBC 6.6 (4.8-10.8) X10*3/uL RBC 4.68 (4.20-5.50) X10*6/uL Hgb 14.1 (12.0-16.0) g/dl Hct 42.3 (37.0-47.0) % MCV 90.4 (80.0-98.0) fL MCH 30.1 (27.0-33.0) pg MCHC 33.3 (31.0-35.0) g/dl RDW 12.1 (11.0-16.0) % Plt Count 328 (160-400) X10*3/uL MPV 9.0 L (9.4-12.3) fL Immature Gran % (Auto) 0.3 (0.0-0.4) % Neut % (Auto) 56.7 (45-73) % Lymph % (Auto) 34.7 (20-40) % Boyd % (Auto) 6.2 (2-11) % Eos % (Auto) 1.2 (0-4) % Baso % (Auto) 0.9 (0-2) % Lymph # (Auto) 2.3 (1.2-4.9) X10*3/uL Boyd # (Auto) 0.4 (0.1-1.2) X10*3/uL Eos # (Auto) 0.1 (0.0-0.4) X10*3/uL Baso # (Auto) 0.1 (0.0-0.2) X10*3/uL Abs Immat Gran (auto) 0.02 (0.00-0.03) X10*3/uL Absolute Neuts (auto) 3.7 (2.0-8.3) x10*3/uL Absolute Nucleated RBC 0.000 (0.0-0.012) X10*3/uL Nucleated RBC % (auto) 0.0 (0.0-0.2) /100WBC Sodium (135-145) mmol/L Potassium (3.3-5.1) mmol/L Chloride (96-108) mmol/L Carbon Dioxide (22-29) mmol/L Anion Gap (12-20) BUN (9-16) mg/dL Creatinine (0.5-1.4) mg/dL Estim Creat Clear Calc Estimated GFR Random Glucose (60-115) mg/dL Calcium (8.4-10.2) mg/dL Total Bilirubin (0.0-1.0) mg/dL AST (5-31) U/L ALT (0-31) U/L Alkaline Phosphatase (39-117) U/L Total Protein (6.5-8.0) g/dL Albumin (3.5-5.0) g/dL Urine Opiates Screen Not Detected (Not Detect) Urine Fentanyl Screen POSITIVE H (Not Detect) Ur Barbiturates Screen Not Detected (Not Detect) Ur Phencyclidine Scrn Not Detected (Not Detect) Ur Amphetamines Screen Not Detected (Not Detect) U Benzodiazepines Scrn Not Detected (Not Detect) Urine Cocaine Screen Not Detected (Not Detect) U Marijuana (THC) Screen Not Detected (Not Detect) Ethyl Alcohol mg/dL COVID-19 (LOGAN) Negative (Negative) COVID-19 Clin Com See Note 12/22/22 12/22/22 Range/Units 18:50 18:50 WBC (4.8-10.8) X10*3/uL RBC (4.20-5.50) X10*6/uL Hgb (12.0-16.0) g/dl Hct (37.0-47.0) % MCV (80.0-98.0) fL MCH (27.0-33.0) pg MCHC (31.0-35.0) g/dl RDW (11.0-16.0) % Plt Count (160-400) X10*3/uL MPV (9.4-12.3) fL Immature Gran % (Auto) (0.0-0.4) % Neut % (Auto) (45-73) % Lymph % (Auto) (20-40) % Boyd % (Auto) (2-11) % Eos % (Auto) (0-4) % Baso % (Auto) (0-2) % Lymph # (Auto) (1.2-4.9) X10*3/uL Boyd # (Auto) (0.1-1.2) X10*3/uL Eos # (Auto) (0.0-0.4) X10*3/uL Baso # (Auto) (0.0-0.2) X10*3/uL Abs Immat Gran (auto) (0.00-0.03) X10*3/uL Absolute Neuts (auto) (2.0-8.3) x10*3/uL Absolute Nucleated RBC (0.0-0.012) X10*3/uL Nucleated RBC % (auto) (0.0-0.2) /100WBC Sodium 143 (135-145) mmol/L Potassium 4.2 (3.3-5.1) mmol/L Chloride 109 H (96-108) mmol/L Carbon Dioxide 30 H (22-29) mmol/L Anion Gap 8 L (12-20) BUN 15 (9-16) mg/dL Creatinine 0.84 (0.5-1.4) mg/dL Estim Creat Clear Calc 84.9 Estimated GFR > 60 Random Glucose 154 H (60-115) mg/dL Calcium 9.4 (8.4-10.2) mg/dL Total Bilirubin 0.3 (0.0-1.0) mg/dL AST 12 (5-31) U/L ALT 11 (0-31) U/L Alkaline Phosphatase 66 (39-117) U/L Total Protein 6.4 L (6.5-8.0) g/dL Albumin 4.4 (3.5-5.0) g/dL Urine Opiates Screen (Not Detect) Urine Fentanyl Screen (Not Detect) Ur Barbiturates Screen (Not Detect) Ur Phencyclidine Scrn (Not Detect) Ur Amphetamines Screen (Not Detect) U Benzodiazepines Scrn (Not Detect) Urine Cocaine Screen (Not Detect) U Marijuana (THC) Screen (Not Detect) Ethyl Alcohol < 10 mg/dL COVID-19 (LOGAN) (Negative) COVID-19 Clin Com Discharge Plan Discharge Clinical Impression: Suicidal ideation Patient Disposition: Still a Patient Prescriptions: No Action benztropine 1 mg Tablet 1 mg PO BEDTIME aripiprazole 15 mg Tablet 15 mg PO BEDTIME lamotrigine [Lamictal] 200 mg Tablet 200 mg PO QAM hydroxyzine pamoate 25 mg Capsule 25 mg PO BID PRN (Reason: Anxiety) vilazodone [Viibryd] 20 mg Tablet 20 mg PO QAM Rx Instructions: must administer with a meal/food Take with 10 mg Viibryd in am vilazodone [Viibryd] 10 mg Tablet 10 mg PO QAM Rx Instructions: must administer with a meal/food take in am with 20 mg viibryd hydroxyzine pamoate [Vistaril] 50 mg Capsule 50 mg PO BEDTIME zolpidem 10 mg Tablet 10 mg PO BEDTIME calcium carbonate 600 mg calcium (1,500 mg) Tablet 600 mg PO BEDTIME Myrbetriq 50 mg Tablet Extended Release 24 Hr 50 mg PO QAM omeprazole 40 mg Capsule,Delayed Release(Dr/Ec) 40 mg PO QAM Ventolin 90 mcg/actuation Aerosol 180 mcg INHALATION Q4H PRN (Reason: Shortness Of Breath)
[2022-12-22] MEDS: Ondansetron ODT 4 MG TAB.RAPDIS TRANSLINGU (19:38)
[2022-12-22] MEDS: Benztropine Mesylate 1 MG TABLET PO (20:59)
[2022-12-22] MEDS: Zolpidem Tartrate 5 MG TABLET PO (20:59)
[2022-12-22] MEDS: ARIPiprazole 15 MG TABLET PO (20:59)
[2022-12-22] MEDS: hydrOXYzine HCL 50 MG TABLET PO (20:59)
[2022-12-22] MEDS: lamoTRIgine 100 MG TABLET 200 MG PO (20:59)
[2022-12-22] MEDS: Vilazodone HCL 20 MG TABLET PO (21:06)
[2022-12-22] MEDS: Vilazodone HCL 10 MG TABLET PO (21:06)
--- NOTE | 2022-12-23 04:38 | PC.NURSE ---
Patient slept through the night, no distress observed/reported, patient was evaluated by care team, disposition current provider, patient will be dicharged back to her half-way today and half-way environmental program manager is in agreement with discharge plan, care team coordinate the discharge, behavior on concerning, medication compliant, VSS, will continue to monitor.
[2022-12-23] MEDS: Omeprazole 40 MG CAPSULE.DR PO (05:41)
[2022-12-23 06:14] VITALS: BP 131/82; PULSE 78; RESP 15; TEMP 36.4; O2SAT 100
[2022-12-23] MEDS: lamoTRIgine 100 MG TABLET 200 MG PO (08:07)
[2022-12-23] MEDS: Vilazodone HCL 20 MG TABLET PO (08:07)
[2022-12-23] MEDS: Vilazodone HCL 10 MG TABLET PO (08:08)
[2022-12-23] MEDS: Mirabegron 50 MG TAB.ER.24H PO (08:08)
== END 2022-12-23 10:00 | disposition home or self-care (01) ==
PROVIDERS: Emergency Medicine; Emergency Provider Emergency Medicine
DX: F33.1 Major depressive disorder, recurrent, moderate (principal); R45.851 Suicidal ideations; Z20.822 Contact with and (suspected) exposure to COVID-19; Z20.828 Contact with and (suspected) exposure to other viral communicable diseases; Z79.899 Other long term (current) drug therapy
CPT/HCPCS: 80053; 80307; 82077; 85025; 87086; 87635; 99284; S9485

== ENCOUNTER 2022-12-24 19:32 | Emergency (ER) | payer MEDICARE, MEDICAID, SELFPAY ==
[2022-12-24 19:39] VITALS: BP 125/95; PULSE 110; RESP 18; TEMP 36.4; O2SAT 100; BMI 24.3
--- NOTE | 2022-12-24 19:52 | ED_ITS ---
HPI - General Adult General Chief complaint: Psychiatric Symptoms Stated complaint: crisis Section 12 Time Seen by Provider: 12/24/22 19:50 Source: patient and EMS Mode of arrival: EMS Limitations: no limitations History of Present Illness HPI narrative: Patient is a 32 year old assigned female at with a history of PTSD and MDD presenting to the emergency department today with SI. Patient states that she has suicidal ideation and has a plan to kill herself by jumping in front of oncoming traffic. Patient denies any dizziness, lightheadedness, abdominal pain, nausea, vomiting, fever, chills, blurry vision, double vision, loss of vision, chest pain, difficulty breathing, shortness of breath, back pain, night sweats, pain with urination, increased urinary frequency, increased urinary urgency, blood in her urine or stool, syncope or a near syncopal episode, recent trauma or falls, bowel incontinence, bladder incontinence, bowel retention, bladder retention, or any other complaints at this time. Onset (ago): day(s) Relieving factors: none Exacerbating factors: none Associated symptoms: denies other symptoms Treatments prior to arrival: none Related Data Home Medications Medication Instructions Recorded Confirmed albuterol 90 mcg/actuation aerosol 180 mcg inhalation Q4H PRN 11/19/22 12/24/22 inhaler Shortness Of Breath aripiprazole 15 mg tablet 15 mg PO BEDTIME 11/19/22 12/24/22 benztropine 1 mg tablet 1 mg PO BEDTIME 11/19/22 12/24/22 calcium carbonate 600 mg calcium 600 mg PO BEDTIME 11/19/22 12/24/22 (1,500 mg) tablet hydroxyzine pamoate 25 mg capsule 25 mg PO BID PRN Anxiety 11/19/22 12/24/22 hydroxyzine pamoate 50 mg capsule 50 mg PO BEDTIME 11/19/22 12/24/22 (Vistaril) lamotrigine 200 mg tablet 200 mg PO QAM 11/19/22 12/24/22 (Lamictal) mirabegron 50 mg tablet,extended 50 mg PO QAM 11/19/22 12/24/22 release 24 hr (Myrbetriq) omeprazole 40 mg capsule,delayed 40 mg PO QAM 11/19/22 12/24/22 release vilazodone 10 mg tablet (Viibryd) 10 mg PO QAM 11/19/22 12/24/22 vilazodone 20 mg tablet (Viibryd) 20 mg PO QAM 11/19/22 12/24/22 zolpidem 10 mg tablet 10 mg PO BEDTIME 11/19/22 12/24/22 Allergies Allergy/AdvReac Type Severity Reaction Status Date / Time penicillin G Allergy Severe Swelling Verified 08/29/22 06:44 lactose Allergy Intermediate Stomach Verified 08/29/22 06:47 Upset amoxicillin [From AUGMENTIN] AdvReac Severe SWOLLEN Verified 08/29/22 06:44 THROAT clavulanic acid AdvReac Severe SWOLLEN Verified 11/20/22 08:24 [From AUGMENTIN] THROAT Penicillins [PENICILLINS] AdvReac Severe Swelling Verified 11/20/22 08:24 fluoxetine [From PROZAC] AdvReac Intermediate RASH Verified 08/29/22 06:43 Review of Systems Constitutional: Constitutional: Reports no additional constitutional complaints, Denies chills, Denies fever(s) and Denies night sweats Eyes: Eyes: Reports no additional eye complaints, Denies blurry vision, Denies change in vision, Denies diplopia, Denies eye discharge, Denies loss of vision and Denies eye pain ENT: Denies dizziness Cardiovascular: Cardiovascular: Reports no additional cardiovascular complaints, Denies chest pain, Denies lightheadedness, Denies Loss of Consciousness and Denies dyspnea Respiratory: Respiratory: Reports no additional respiratory complaints and Denies dyspnea Gastrointestinal: Gastrointestinal: Reports no additional gastrointestinal complaints, Denies abdominal pain, Denies melena, Denies hematochezia, Denies change in bowel habits and Denies change in stool character Genitourinary: Genitourinary: Denies hematuria, Denies urinary frequency, Denies dysuria, Denies urinary incontinence, Denies urinary hesitancy and Denies urinary urgency Musculoskeletal: Musculoskeletal: Reports no additional musculoskeletal complaints, Denies numbness and Denies tingling Neurologic: Denies dizziness, Denies loss of vision, Denies numbness and Denies tingling Psychiatric: Psychiatric: Reports no additional psychiatric complaints and Reports suicidal ideation Endocrine: Endocrine: Reports no additional endocrine complaints Hematologic/Lymphatic: Hematologic/Lymphatic: Reports no additional hematologic/lymphatic complaints Allergic/Immunologic: Allergic/Immunologic: Reports no additional allergic/immunologic complaints PMFSH Past Medical History Attestation statement: The following information was validated with the patient. Source: old records reviewed and nursing notes reviewed Medical History Asthma MDD (major depressive disorder), recurrent episode, moderate Migraine Post-traumatic stress disorder, chronic Retts syndrome Social History Social History Household Members: Other Household Members Other:: Residential Home/Housemates Alcohol intake: never Patient Tobacco Use Status: Former Tobacco user Advance Directives: No Advance Directives Information Provided: No Physical Exam ED Vital Signs: Vital Signs - 24 hr 12/24/22 19:39 Temperature 97.6 F Pulse Rate 110 H Respiratory Rate 18 Blood Pressure 125/95 H Pulse Oximetry 100 Oxygen Delivery Method Room Air BMI result Body Mass Index 24.3 Const General: cooperative, no acute distress, alert and awake Nutritional Appearance: well nourished Orientation/consciousness: patient oriented x3 Limitations: no limitations HENMT Head: Yes normal to inspection and Yes atraumatic Ears: hearing grossly normal bilaterally and external ears normal General nose exam: Normal external nose present, no nasal discharge noted and no epistaxis Face and sinus: Yes normal facial exam, No abrasion and No laceration Mouth: Normal oral and palatal mucosa present, no drooling and no muffled voice Eyes General: appearance normal, both eyes and all related structures Periorbital: periorbital findings normal Eyelids: Yes eyelids normal Conjunctivae: conjunctivae normal Pupils: Equal, round and reactive pupils present EOM: EOMs intact bilaterally Neck Neck: Yes normal visual inspection, Yes full ROM and Yes no lymphadenopathy Chest Chest palpation & inspection: normal inspection of the chest Resp Effort & Inspection: normal respiratory effort and able to speak in complete sentences GI Inspection: Yes normal to inspection Neuro General: patient oriented x3 and moves all extremities Cranial nerves: Yes Equal, round and reactive pupils present Cognition (Neuro): normal cognition Motor exam (neuro): 5/5 motor strength present throughout Sensory Exam: Normal double simultaneous stimulation for sensation Coordination: [id number] test normal Extrem General: Yes normal to inspection, Yes full ROM and Yes capillary refill normal Psych Appearance: grossly normal Mental Status: mental status grossly normal Affect: normal affect Attitude: cooperative Thought process: Normal thought process present Thought content: Normal thought content present Insight: Good insight present (Psych) Medical Decision Making Medical Decision Making MDM Narrative: Patient is a 32 year old assigned female at presenting to the emergency department today with suicidal ideation. Patient's physical exam was unremarkable. Patient's work up was unremarkable. I explained my physical exam findings as well as all test results to the patient. I answered all questions asked by the patient. Patient is pending CARE team evaluation. Differential Diagnosis Differential Diagnoses: The differential diagnosis associated with the presentation includes SI Lab Data [facility] Lab Attestation statement: I reviewed the patient's lab results. Labs: Lab Results 12/24/22 12/24/22 12/24/22 Range/Units 20:01 20:01 20:01 Urine Color Dark Yellow Urine Appearance Clear Urine pH 5.5 (5.0-9.0) Ur Specific [place] >= 1.030 H (1.005-1.025) Urine Protein 30 (1+) H (Neg-Trace) mg/dL Urine Glucose (UA) Negative (Negative) mg/dL Urine Ketones Trace (Negative) mg/dL Urine Blood Negative (Negative) Urine Nitrite Negative (Negative) Ur Leukocyte Esterase Negative (Negative) Urine RBC 0-2 (0-2) /HPF Urine WBC 0-5 (0-5) /HPF Ur Squamous Epith Cells 6-10 (0-2) /HPF Urine Bacteria None Seen (None Seen) Hyaline Casts 0-2 (0-2) /LPF Urine Opiates Screen Not Detected (Not Detect) Urine Fentanyl Screen POSITIVE H (Not Detect) Ur Barbiturates Screen Not Detected (Not Detect) Ur Phencyclidine Scrn Not Detected (Not Detect) Ur Amphetamines Screen Not Detected (Not Detect) U Benzodiazepines Scrn Not Detected (Not Detect) Urine Cocaine Screen Not Detected (Not Detect) U Marijuana (THC) Screen Not Detected (Not Detect) Ethyl Alcohol mg/dL COVID-19 (LOGAN) Negative (Negative) COVID-19 Clin Com See Note 12/24/22 Range/Units 20:12 Urine Color Urine Appearance Urine pH (5.0-9.0) Ur Specific [place] (1.005-1.025) Urine Protein (Neg-Trace) mg/dL Urine Glucose (UA) (Negative) mg/dL Urine Ketones (Negative) mg/dL Urine Blood (Negative) Urine Nitrite (Negative) Ur Leukocyte Esterase (Negative) Urine RBC (0-2) /HPF Urine WBC (0-5) /HPF Ur Squamous Epith Cells (0-2) /HPF Urine Bacteria (None Seen) Hyaline Casts (0-2) /LPF Urine Opiates Screen (Not Detect) Urine Fentanyl Screen (Not Detect) Ur Barbiturates Screen (Not Detect) Ur Phencyclidine Scrn (Not Detect) Ur Amphetamines Screen (Not Detect) U Benzodiazepines Scrn (Not Detect) Urine Cocaine Screen (Not Detect) U Marijuana (THC) Screen (Not Detect) Ethyl Alcohol < 10 mg/dL COVID-19 (LOGAN) (Negative) COVID-19 Clin Com Discharge Plan Discharge Clinical Impression: Suicidal ideation Patient Disposition: Still a Patient Prescriptions: No Action benztropine 1 mg Tablet 1 mg PO BEDTIME aripiprazole 15 mg Tablet 15 mg PO BEDTIME lamotrigine [Lamictal] 200 mg Tablet 200 mg PO QAM hydroxyzine pamoate 25 mg Capsule 25 mg PO BID PRN (Reason: Anxiety) vilazodone [Viibryd] 20 mg Tablet 20 mg PO QAM Rx Instructions: must administer with a meal/food Take with 10 mg Viibryd in am vilazodone [Viibryd] 10 mg Tablet 10 mg PO QAM Rx Instructions: must administer with a meal/food take in am with 20 mg viibryd hydroxyzine pamoate [Vistaril] 50 mg Capsule 50 mg PO BEDTIME zolpidem 10 mg Tablet 10 mg PO BEDTIME calcium carbonate 600 mg calcium (1,500 mg) Tablet 600 mg PO BEDTIME Myrbetriq 50 mg Tablet Extended Release 24 Hr 50 mg PO QAM omeprazole 40 mg Capsule,Delayed Release(Dr/Ec) 40 mg PO QAM Ventolin 90 mcg/actuation Aerosol 180 mcg INHALATION Q4H PRN (Reason: Shortness Of Breath) Interventions: [place]-Suicide Risk Severity Scale Last Done: 12/24/22 19:43
[2022-12-24 20:25] LABS: Appearance Urine Clear; Color Urine Dark Yellow; Glucose Urine UA Negative (Negative); Leukocyte Esterase Urine Negative (Negative); Nitrite Urine Negative (Negative); PH 5.5 (5.0-9.0); Specific Gravity - Urine >= 1.030 (1.005-1.025); UMIC TRIGGER UA YES; Urine Blood Negative (Negative); Urine Ketones Trace mg/dL (Negative); Urine Protein 30 (1+) mg/dL (Neg-Trace)
[2022-12-24 20:28] LABS: Bacteria Urine None Seen (None Seen); Hyaline Casts Urine 0-2 /LPF (0-2); RBC Urine 0-2 /HPF (0-2); WBC Urine 0-5 /HPF (0-5)
[2022-12-24 20:35] LABS: Amphetamine Screen Urine Not Detected (Not Detect); Barbiturates, Urine Not Detected (Not Detect); Benzodiazepines Screen Urine Not Detected (Not Detect); Cannabinoid Screen Urine Not Detected (Not Detect); Cocaine Screen Urine Not Detected (Not Detect); Fentanyl, urine POSITIVE (Not Detect); Opiate Screen Urine Not Detected (Not Detect); Phencyclidine Screen Urine Not Detected (Not Detect)
[2022-12-24 20:40] LABS: COVID-19 Test Negative (Negative); IDNOW Serial# 6674DD1D
[2022-12-24 20:49] LABS: Ethanol < 10 mg/dL
[2022-12-25] MEDS: Omeprazole 40 MG CAPSULE.DR PO (05:32)
--- NOTE | 2022-12-25 05:39 | PC.NURSE ---
Patient slept intermittently, no distress observed/reported, medication compliant, behavior non concerning, assessed by care team, disposition current provider, patient will be discharged back to her fdc in the morning, care team will coordinate the discharge, VSS, labs completed/resulted, will continue to monitor.
[2022-12-25 05:53] VITALS: BP 110/81; PULSE 78; RESP 19; TEMP 36.3; O2SAT 98
--- NOTE | 2022-12-25 07:19 | PC.NURSE ---
Pt awake this am reporting poor sleep. In shower. Mood is good. No dangerous behaviors noted.
--- NOTE | 2022-12-25 07:48 | PC.NURSE ---
Pt ate 50% of breakfast. C/O not sleeping last PM. Lights dimmed, warm blanket donned. Awaiting discharge to Long-Term.
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
[2022-12-25] MEDS: Vilazodone HCL 20 MG TABLET PO (08:39)
[2022-12-25] MEDS: lamoTRIgine 100 MG TABLET 200 MG PO (08:39)
[2022-12-25] MEDS: Mirabegron 50 MG TAB.ER.24H PO (08:39)
[2022-12-25] MEDS: Vilazodone HCL 10 MG TABLET PO (08:39)
[2022-12-25] MEDS: hydrOXYzine HCL 25 MG TABLET PO (10:28)
--- NOTE | 2022-12-25 14:25 | MHC.CARE ---
Jian Escoto is the loan operations specialist for 's [facility].
== END 2022-12-25 14:48 | disposition skilled nursing facility (03) ==
PROVIDERS: Emergency Provider Emergency Medicine
DX: R45.851 Suicidal ideations (principal); Z20.822 Contact with and (suspected) exposure to COVID-19; F43.10 Post-traumatic stress disorder, unspecified; F32.9 Major depressive disorder, single episode, unspecified; Z79.899 Other long term (current) drug therapy
CPT/HCPCS: 36415; 80307; 81001; 82077; 87635; 99284; S9485

== ENCOUNTER 2022-12-25 17:46 | Inpatient (IN) | payer MEDICARE, MEDICAID, SELFPAY ==
--- NOTE | ~2022-12-25 | XR_ITS ---
EXAMINATION: XR RIBS, LEFT CLINICAL INFORMATION: Pain COMPARISON: None available. TECHNIQUE: Single view chest with 3 views of the left ribs were obtained. FINDINGS: Lungs are clear. No consolidation, pneumothorax, or pleural effusion. The cardiomediastinal silhouette and pulmonary vasculature are normal. Osseous structures are unremarkable. Ribs are intact. No fractures are identified. XR/XR ribs LT min 3V w CXR1V IMPRESSION: Unremarkable examination.
[2022-12-25 17:57] VITALS: BP 150/90; PULSE 118; RESP 18; O2SAT 98; BMI 22.8
[2022-12-25 19:02] VITALS: BP 118/80; PULSE 97; RESP 15; TEMP 36.9; O2SAT 100
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
[2022-12-25 19:22] LABS: Appearance Urine Clear; Color Urine Yellow; Glucose Urine UA Negative (Negative); Leukocyte Esterase Urine Negative (Negative); Nitrite Urine Negative (Negative); UMIC TRIGGER UACC YES; Urine Blood Negative (Negative); Urine Ketones Negative (Negative); Urine Protein 100 (2+) mg/dL (Neg-Trace)
[2022-12-25 19:23] LABS: UPreg QC Valid YES
[2022-12-25 19:24] LABS: Bacteria Urine None Seen (None Seen); Hyaline Casts Urine 0-2 /LPF (0-2); RBC Urine 0-2 /HPF (0-2); WBC Urine 0-5 /HPF (0-5)
[2022-12-25 19:25] LABS: Urine Pregnancy NEGATIVE (NEGATIVE)
[2022-12-25 19:37] LABS: COVID-19 Test Negative (Negative); IDNOW Serial# BCCEAD1C
[2022-12-25] MEDS: Zolpidem Tartrate 5 MG TABLET PO (20:27)
[2022-12-25] MEDS: hydrOXYzine HCL 50 MG TABLET PO (20:27)
[2022-12-25] MEDS: Benztropine Mesylate 1 MG TABLET PO (20:27)
[2022-12-25] MEDS: ARIPiprazole 15 MG TABLET PO (20:27)
--- NOTE | 2022-12-26 04:35 | PC.NURSE ---
Patient slept through the night, no distress observed/reported, behavior non concerning but needy, medication compliant, patient was assessed by care team with disposition section 12 inpatient bed search, VSS, will continue to monitor.
[2022-12-26] MEDS: Omeprazole 40 MG CAPSULE.DR PO (06:40)
[2022-12-26 06:41] VITALS: BP 111/71; PULSE 77; RESP 12; TEMP 36.5; O2SAT 99
[2022-12-26] MEDS: Mirabegron 50 MG TAB.ER.24H PO (07:28)
[2022-12-26] MEDS: lamoTRIgine 100 MG TABLET 200 MG PO (07:28)
[2022-12-26] MEDS: Vilazodone HCL 20 MG TABLET PO (07:28)
[2022-12-26] MEDS: Vilazodone HCL 10 MG TABLET PO (07:28)
[2022-12-26] MEDS: hydrOXYzine HCL 25 MG TABLET PO (13:24)
--- NOTE | 2022-12-26 13:28 | PC.NURSE ---
pt crying and reports dealing with some stuff , wants to talk w care team, prn offered and taken
[2022-12-26 14:29] VITALS: BP 118/83; PULSE 108; RESP 17; TEMP 36.5; O2SAT 100
--- NOTE | 2022-12-26 16:55 | ECG_ITS ---
Test Reason : CARDIAC STATUS Blood Pressure : / mmHG Vent. Rate : 081 BPM Atrial Rate : 081 BPM P-R Int : 148 ms QRS Dur : 078 ms QT Int : 362 ms P-R-T Axes : 072 027 059 degrees QTc Int : 420 ms Normal sinus rhythm Normal ECG When compared with ECG of 28-JUN-2021 15:55, No significant change was found Referred By: Robin Pichardo Electronically Signed By:MARCIAL ALVAREZ
--- NOTE | 2022-12-26 17:44 | PC.NURSE ---
pt has been in and out of room, pleasant and cooperative all afternoon, reports that she is not currently suicidal because she is here and getting help
[2022-12-26 18:09] LABS: Cannabinoid Screen Urine Not Detected (Not Detect); Fentanyl, urine POSITIVE (Not Detect); Opiate Screen Urine Not Detected (Not Detect)
[2022-12-26 18:26] LABS: Amphetamine Screen Urine Not Detected (Not Detect); Barbiturates, Urine Not Detected (Not Detect); Benzodiazepines Screen Urine Not Detected (Not Detect); Cocaine Screen Urine Not Detected (Not Detect); Phencyclidine Screen Urine Not Detected (Not Detect)
[2022-12-26] MEDS: ARIPiprazole 15 MG TABLET PO (20:05)
[2022-12-26] MEDS: Zolpidem Tartrate 5 MG TABLET PO (20:05)
[2022-12-26] MEDS: Benztropine Mesylate 1 MG TABLET PO (20:06)
[2022-12-26] MEDS: hydrOXYzine HCL 50 MG TABLET PO (20:06)
[2022-12-26 22:00] VITALS: BP 109/69; PULSE 92; RESP 18; TEMP 36.8; O2SAT 100
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
[2022-12-27 07:56] VITALS: BP 102/63; PULSE 103; TEMP 36.9; O2SAT 98
[2022-12-27] MEDS: Vilazodone HCL 20 MG TABLET PO (08:02)
[2022-12-27] MEDS: Mirabegron 50 MG TAB.ER.24H PO (08:03)
[2022-12-27] MEDS: Omeprazole 40 MG CAPSULE.DR PO (08:03)
[2022-12-27] MEDS: Vilazodone HCL 10 MG TABLET PO (08:04)
[2022-12-27] MEDS: lamoTRIgine 100 MG TABLET 200 MG PO (08:04)
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
[2022-12-27] MEDS: Multivitamin TABLET 1 TAB PO (09:55)
[2022-12-27] MEDS: hydrOXYzine HCL 25 MG TABLET PO (10:03)
[2022-12-27 11:06] VITALS: BP 116/74; PULSE 90
[2022-12-27 12:09] LABS: Cholesterol 205 mg/dL; HDL Cholesterol 57 mg/dL; LDL Cholesterol Calculated 125 mg/dl; Triglycerides 118 mg/dL
[2022-12-27 12:10] LABS: Estimated Average Glucose 88 mg/dL; Hemoglobin A1c % 4.7 %
[2022-12-27 12:24] LABS: TSH reflex Free T4 1.15 uIU/mL (0.32-4.0)
--- NOTE | 2022-12-27 14:26 | PC.NURSE ---
Ryanne placed orders for orthostatic vitals. Pt complaining of dizziness. RN assessed vitals at 1420. Layin/74, hr 90, o2 98%. Standin/88, HR 112, O2 100%. Ryanne aware, no further recommendations at this time.
[2022-12-27 15:26] LABS: Appearance Urine Clear; Color Urine Yellow; Glucose Urine UA Negative (Negative); Leukocyte Esterase Urine Negative (Negative); Nitrite Urine Negative (Negative); Urine Blood Negative (Negative); Urine Ketones Negative (Negative); Urine Protein Negative (Neg-Trace)
[2022-12-27] MEDS: hydrOXYzine HCL 50 MG TABLET PO ×2 (17:07→20:55)
[2022-12-27] MEDS: ARIPiprazole 15 MG TABLET PO (20:55)
[2022-12-27] MEDS: Zolpidem Tartrate 5 MG TABLET PO (20:55)
[2022-12-27 21:09] VITALS: BP 117/68; PULSE 101; TEMP 36.8; O2SAT 99
[2022-12-27] MEDS: Benztropine Mesylate 1 MG TABLET PO (21:19)
[2022-12-28 08:30] VITALS: BP 120/68; PULSE 110; RESP 18; TEMP 36.3; O2SAT 100
[2022-12-28] MEDS: Multivitamin TABLET 1 TAB PO (08:32)
[2022-12-28] MEDS: lamoTRIgine 100 MG TABLET 200 MG PO (08:32)
[2022-12-28] MEDS: Omeprazole 40 MG CAPSULE.DR PO (08:32)
[2022-12-28] MEDS: Vilazodone HCL 20 MG TABLET PO (08:33)
[2022-12-28] MEDS: Vilazodone HCL 10 MG TABLET PO (08:33)
[2022-12-28] MEDS: hydrOXYzine HCL 50 MG TABLET PO ×2 (08:33→20:33)
[2022-12-28] MEDS: Mirabegron 50 MG TAB.ER.24H PO (08:33)
--- NOTE | 2022-12-28 12:16 | P.PNPSI_ITS ---
Subjective Subjective Date of Service: 12/28/22 Reason For Visit: sec 12 Interim History: met with patient; discussed with team; reviewed admission note Discussed further with social media coordinator who got collateral from detention and reports defer from patient's current reporting (see below) Patient reports that she has always had auditory hallucinations and the to medication trials, Rexulti and Abilify have never lessened them. She says AH says mean things like telling her to kill herself. Patient cannot point to any specific reason why her AH got worse and why it caused her to try and run into traffic. She also says the detention staff and housemates are mean to her, say mean things which has been triggering. Patient talked about history of eating disorder problems and that she will alternate between urges to binge eat and then per jar restrict; she denies current symptoms and agrees to supplement diet with Ensure. Patient asks if Abilify can go back to 5 mg in the morning and 15 at bedtime; she also wants to be back on Cogentin for what she vaguely describes as possibly akathisia; quality analyst/technical writer discussed how treatment for akathisia is different than Cogentin however patient said that Cogentin seems to make it better; in effort to reduce polypharmacy, she agreed to try half dose. Patient however would like auditory hallucinations or directly addressed and agrees to trial of Risperdal. She also complains of nightmares and flashbacks to trauma and agrees to try clonidine p.r.n. psychiatric social worker talked with detention who reports patient has no known history of auditory hallucinations. They say that patient normally gets along with staff and peers and there are no obvious interpersonal/relational problems. 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 Diagnostics Vital Signs (24Hr): Vital Signs - 24 hr 12/27/22 21:09 12/28/22 08:30 Temperature 98.3 F 97.3 F Pulse Rate 101 H 110 H Respiratory Rate 18 Blood Pressure 117/68 120/68 Pulse Oximetry 99 100 Oxygen Delivery Method Room Air Room Air BMI result Body Mass Index 22.8 Labs Labs: Laboratory Results - last 48 hr 12/26/22 12/27/22 12/27/22 17:53 11:37 11:37 Estimat Average Glucose 88 Hemoglobin A1c % 4.7 Triglycerides 118 Cholesterol 205 LDL Cholesterol, Calc 125 HDL Cholesterol 57 TSH 1.15 Urine Color Urine Appearance Urine pH Ur Specific Bon[place] Urine Protein Urine Glucose (UA) Urine Ketones Urine Blood Urine Nitrite Ur Leukocyte Esterase Urine Opiates Screen Not Detected Urine Fentanyl Screen POSITIVE H Ur Barbiturates Screen Not Detected Ur Phencyclidine Scrn Not Detected Ur Amphetamines Screen Not Detected U Benzodiazepines Scrn Not Detected Urine Cocaine Screen Not Detected U Marijuana (THC) Screen Not Detected 12/27/22 14:56 Estimat Average Glucose Hemoglobin A1c % Triglycerides Cholesterol LDL Cholesterol, Calc HDL Cholesterol TSH Urine Color Yellow Urine Appearance Clear Urine pH 6.0 Ur Specific Bono 1.010 Urine Protein Negative Urine Glucose (UA) Negative Urine Ketones Negative Urine Blood Negative Urine Nitrite Negative Ur Leukocyte Esterase Negative Urine Opiates Screen Urine Fentanyl Screen Ur Barbiturates Screen Ur Phencyclidine Scrn Ur Amphetamines Screen U Benzodiazepines Scrn Urine Cocaine Screen U Marijuana (THC) Screen Imaging Radiology Impressions: ITS Impressions Ribs X-Ray 12/25/22 19:44 IMPRESSION: Unremarkable examination. Medications Medications Current Medications Albuterol Sulfate (Albuterol Sulfate 90 Mcg 8 Gm Inhaler) 2 puff INHALE Q4H PRN PRN Reason: Shortness Of Breath Aripiprazole (Aripiprazole 15 Mg Tablet) 15 mg PO BEDTIME [facility] Last Admin: 12/27/22 20:55 Dose: 15 mg Aripiprazole (Aripiprazole 5 Mg Tablet) 5 mg PO DAILY [facility] Benztropine Mesylate (Benztropine Mesylate 1 Mg Tablet) 1 mg PO BEDTIME [facility] Calcium Carbonate (Calcium Carbonate 500 Mg Tablet) 500 mg PO BEDTIME [facility] Last Admin: 12/27/22 20:55 Dose: 500 mg Clonidine HCl (Clonidine Hcl 0.1 Mg Tablet) 0.1 mg PO ONCE ONE; Protocol Stop: 12/28/22 12:10 Clonidine HCl (Clonidine Hcl 0.1 Mg Tablet) 0.1 mg PO Q4H PRN; Protocol PRN Reason: anxiety Hydroxyzine HCl (Hydroxyzine Hcl 25 Mg Tablet) 25 mg PO BID PRN PRN Reason: Anxiety Last Admin: 12/27/22 10:03 Dose: 25 mg Hydroxyzine HCl (Hydroxyzine Hcl 50 Mg Tablet) 50 mg PO BEDTIME [facility] Last Admin: 12/27/22 20:55 Dose: 50 mg Hydroxyzine HCl (Hydroxyzine Hcl 50 Mg Tablet) 50 mg PO Q6H PRN PRN Reason: Anxiety Last Admin: 12/28/22 08:33 Dose: 50 mg Lamotrigine (Lamotrigine 100 Mg Tablet) 200 mg PO DAILY [facility] Last Admin: 12/28/22 08:32 Dose: 200 mg Mirabegron (Mirabegron 50 Mg Tab.Er.24h) 50 mg PO DAILY [facility] Last Admin: 12/28/22 08:33 Dose: 50 mg Multivitamins/Vitamin C (Multivitamin Tablet) 1 tab PO DAILY [facility] Last Admin: 12/28/22 08:32 Dose: 1 tab Omeprazole (Omeprazole 40 Mg Capsule.Dr) 40 mg PO DAILY@0630 [facility] Last Admin: 12/28/22 08:32 Dose: 40 mg Vilazodone HCl (Vilazodone Hcl 10 Mg Tablet) 10 mg PO DAILY [facility] Last Admin: 12/28/22 08:33 Dose: 10 mg Vilazodone HCl (Vilazodone Hcl 20 Mg Tablet) 20 mg PO DAILY [facility] Last Admin: 12/28/22 08:33 Dose: 20 mg Zolpidem Tartrate (Zolpidem Tartrate 5 Mg Tablet) 5 mg PO BEDTIME [facility] Last Admin: 12/27/22 20:55 Dose: 5 mg Allergies Allergies Allergy/AdvReac Type Severity Reaction Status Date / Time penicillin G Allergy Severe Swelling Verified 08/29/22 06:44 amoxicillin [From AUGMENTIN] AdvReac Severe SWOLLEN Verified 08/29/22 06:44 THROAT clavulanic acid AdvReac Severe SWOLLEN Verified 11/20/22 08:24 [From AUGMENTIN] THROAT Penicillins [PENICILLINS] AdvReac Severe Swelling Verified 11/20/22 08:24 fluoxetine [From PROZAC] AdvReac Intermediate RASH Verified 08/29/22 06:43 Assessment & Plan Assessment & Plan (1) Post-traumatic stress disorder, chronic: Status: Acute Code(s): F43.12 - Post-traumatic stress disorder, chronic (2) MDD (major depressive disorder), recurrent episode, moderate: Status: Acute Code(s): F33.1 - Major depressive disorder, recurrent, moderate (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 She was brought on a sect 12 due to walking into traffic as suicide attempt. Pt reports increase depression due to problems with staff at , increase AH of past trauma. She also reports frequent urination, thirst, proteinuria seen in UA, but no signs of infection. A1C is less than 5. Hospital course: 12/28 discrepancy between patient reporting and collateral gathered from detention staff: -psychiatric social worker talked with detention who reports patient has no known history of auditory hallucinations. They say that patient normally gets along with staff and peers and there are no obvious interpersonal/relational problems. 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 -Patient reports that she has always had auditory hallucinations and the to medication trials, Rexulti and Abilify have never lessened them. She says AH says mean things like telling her to kill herself. Patient cannot point to any specific reason why her AH got worse and why it caused her to try and run into traffic. She also says the detention staff and housemates are mean to her, say mean things which has been triggering. Patient talked about history of eating disorder problems and that she will alternate between urges to binge eat and then per jar restrict; she denies current symptoms and agrees to supplement diet with Ensure. Patient asks if Abilify can go back to 5 mg in the morning and 15 at bedtime; she also wants to be back on Cogentin for what she vaguely describes as possibly akathisia; quality analyst/technical writer discussed how treatment for akathisia is different than Cogentin however patient said that Cogentin seems to make it better; in effort to reduce polypharmacy, she agreed to try half dose. Patient however would like auditory hallucinations or directly addressed and agrees to trial of Risperdal. She also complains of nightmares and flashbacks to trauma and agrees to try clonidine p.r.n. Initial formulation: There is a discrepancy between patient's report and collateral gathered from detention staff. Patient reports long-time history of auditory hallucinations that are mean and command; however she says she has only ever been on 2 antipsychotics, both of them more recently in her adult life and very similar, Rexulti and now Abilify. custodial reports that for all the years they have known her there has never been mention of any auditory hallucinations. This history seems to point more toward mood congruent auditory hallucinations rather than a psychotic illness. That said, patient reports feeling triggered by андрей ething and had unsafe behavior (not sure if attempt vs gesture). Will try to help with reported symptoms however, other than hospitalization for stabilization and safety, primary treatment may be long-term work with outpatient therapist. PLAN Admit to M3, CV, 15 minutes checks for safety Abilify 5 mg q.a.m. Abilify 15 mg at bedtime Will start Risperdal 1 mg b.i.d. for patient's report of auditory hallucinations; may also serve as stabilizing Continue Cogentin but will reduce dose to Cogentin 0.5 mg q.h.s.; patient has vague report of potentially akathisia Will start clonidine 0.1 mg Q 4 p.r.n. for anxiety, trauma Continue to obtain collateral information Patient educated on: diagnosis and medication risk/benefits Informed Consent: understands and further education needed Reason for continued inpatient stay Substantial Risk for: rapid decompensation Time Spent With Patient Time: Total time managing care of this patient today ____ minutes.
[2022-12-28] MEDS: risperiDONE 1 MG TABLET PO ×2 (12:49→20:34)
--- NOTE | 2022-12-28 14:09 | MHC.CLN ---
NUTRITION CONSULT FOR HX ANOREXIA/BULIMIA. VISITED WITH PATIENT IN MEETING ROOM. HAS ORDER FOR ENSURE TID. EXPLAINED THAT EACH SERVING HAS 350 KCALS, 20 G PROTEIN. PATIENT AGREES TO TID. WOULD LIKE TO GAIN WEIGHT. REPORTS THAT STARVES SELF AT TIMES AND OTHER TIMES VOMITS. REPORTS NAUSEA AFTER EATING. DISCUSSED EATING FOOD FIRST, THEN SUPPLEMENT. AWARE THAT SNACKS AVAILABLE ON UNIT. PATIENT ENGAGED IN CONVERSATION AND ASKED APPROPRIATE QUESTIONS.
[2022-12-28] MEDS: Ibuprofen 600 MG TABLET PO (16:42)
[2022-12-28] MEDS: Ondansetron ODT 4 MG TAB.RAPDIS TRANSLINGU (18:11)
[2022-12-28 20:10] VITALS: BP 114/76; PULSE 100; RESP 16; TEMP 36.3; O2SAT 99
[2022-12-28] MEDS: ARIPiprazole 15 MG TABLET PO (20:34)
[2022-12-28] MEDS: Zolpidem Tartrate 5 MG TABLET PO (20:34)
[2022-12-28] MEDS: Benztropine Mesylate 0.5 MG TABLET PO (20:35)
[2022-12-29 07:00] VITALS: BMI 23.8
[2022-12-29] MEDS: Vilazodone HCL 20 MG TABLET PO (08:22)
[2022-12-29] MEDS: Multivitamin TABLET 1 TAB PO (08:23)
[2022-12-29] MEDS: Vilazodone HCL 10 MG TABLET PO (08:23)
[2022-12-29] MEDS: ARIPiprazole 5 MG TABLET PO (08:23)
[2022-12-29] MEDS: lamoTRIgine 100 MG TABLET 200 MG PO (08:23)
[2022-12-29] MEDS: Omeprazole 40 MG CAPSULE.DR PO (08:23)
[2022-12-29] MEDS: Mirabegron 50 MG TAB.ER.24H PO (08:23)
[2022-12-29] MEDS: risperiDONE 1 MG TABLET PO ×2 (08:24→20:44)
[2022-12-29 08:28] VITALS: BP 120/79; PULSE 89; RESP 16; TEMP 36.6; O2SAT 100
[2022-12-29] MEDS: Ondansetron ODT 4 MG TAB.RAPDIS TRANSLINGU ×2 (08:30→18:45)
--- NOTE | 2022-12-29 09:28 | HO.PSYCHPN ---
Subjective Subjective Date of Service: 12/29/22 Reason For Visit: sec 12 Interim History: Met with patient; Discussed with social work nurse Patient reports she is feeling much better; she denies any AVH or SI or HI and feels that the time she spent ear was adequate. She would like discharge. Discussing medications she did not feel a need to be on Risperdal as a scheduled medication but asked if he could stay a p.r.n. if she had auditory hallucinations to which television script writer was amenable. shed workers supervisor discussed case with outpatient staff who reports that patient is at baseline and appropriate for discharge back to the community. Mental Status Exam Mental Status Exam Narrative: Pt is alert and oriented; behavior is cooperative, friendly and calm; patient is not in distress; dressed in casual attire with unkempt hair but adequate hygiene; mood is described as good and affect congruent; eye contact appropriate; Speech is normal rate, volume and prosody and not pressured; no psychomotor agitation/retardation present; thought process is organized and goal directed; Thought content is on tx; otherwise pertinent to relevant topics and without any delusional content, paranoid ideations or grandiosity; denies any SI/HI. There is no evidence of perceptual disturbance. Patients insight and judgment are impaired but fair and at baseline. Diagnostics Vital Signs (24Hr): Vital Signs - 24 hr 12/28/22 20:10 12/29/22 08:28 Temperature 97.4 F 97.9 F Pulse Rate 100 89 Respiratory Rate 16 16 Blood Pressure 114/76 120/79 Pulse Oximetry 99 100 Oxygen Delivery Method Room Air Room Air BMI result Body Mass Index 22.8 Labs Labs: Laboratory Results - last 48 hr 12/27/22 12/27/22 12/27/22 11:37 11:37 14:56 Estimat Average Glucose 88 Hemoglobin A1c % 4.7 Triglycerides 118 Cholesterol 205 LDL Cholesterol, Calc 125 HDL Cholesterol 57 TSH 1.15 Urine Color Yellow Urine Appearance Clear Urine pH 6.0 Ur Specific Leslie 1.010 Urine Protein Negative Urine Glucose (UA) Negative Urine Ketones Negative Urine Blood Negative Urine Nitrite Negative Ur Leukocyte Esterase Negative Imaging Radiology Impressions: ITS Impressions Ribs X-Ray 12/25/22 19:44 IMPRESSION: Unremarkable examination. Medications Medications Current Medications Al Hydroxide/Mg Hydroxide (Magnesium Hydrox/Alum Hydrox 30 Ml Oral.Susp) 30 ml PO DAILY PRN PRN Reason: GERD Albuterol Sulfate (Albuterol Sulfate 90 Mcg 8 Gm Inhaler) 2 puff INHALE Q4H PRN PRN Reason: Shortness Of Breath Aripiprazole (Aripiprazole 15 Mg Tablet) 15 mg PO BEDTIME [facility] Last Admin: 12/28/22 20:34 Dose: 15 mg Aripiprazole (Aripiprazole 5 Mg Tablet) 5 mg PO DAILY [facility] Last Admin: 12/29/22 08:23 Dose: 5 mg Benztropine Mesylate (Benztropine Mesylate 0.5 Mg Tablet) 0.5 mg PO BEDTIME [facility] Last Admin: 12/28/22 20:35 Dose: 0.5 mg Calcium Carbonate (Calcium Carbonate 500 Mg Tablet) 500 mg PO BEDTIME [facility] Last Admin: 12/28/22 20:34 Dose: 500 mg Clonidine HCl (Clonidine Hcl 0.1 Mg Tablet) 0.1 mg PO Q4H PRN; Protocol PRN Reason: anxiety Hydroxyzine HCl (Hydroxyzine Hcl 25 Mg Tablet) 25 mg PO BID PRN PRN Reason: Anxiety Last Admin: 12/27/22 10:03 Dose: 25 mg Hydroxyzine HCl (Hydroxyzine Hcl 50 Mg Tablet) 50 mg PO BEDTIME [facility] Last Admin: 12/28/22 20:33 Dose: 50 mg Hydroxyzine HCl (Hydroxyzine Hcl 50 Mg Tablet) 50 mg PO Q6H PRN PRN Reason: Anxiety Last Admin: 12/28/22 08:33 Dose: 50 mg Ibuprofen (Ibuprofen 600 Mg Tablet) 600 mg PO Q6H PRN PRN Reason: pain mild Last Admin: 12/28/22 16:42 Dose: 600 mg Lamotrigine (Lamotrigine 100 Mg Tablet) 200 mg PO DAILY [facility] Last Admin: 12/29/22 08:23 Dose: 200 mg Magnesium Hydroxide (Milk Of Magnesia 30 Ml Oral.Susp) 30 ml PO DAILY PRN PRN Reason: Constipation Mirabegron (Mirabegron 50 Mg Tab.Er.24h) 50 mg PO DAILY [facility] Last Admin: 12/29/22 08:23 Dose: 50 mg Multivitamins/Vitamin C (Multivitamin Tablet) 1 tab PO DAILY [facility] Last Admin: 12/29/22 08:23 Dose: 1 tab Omeprazole (Omeprazole 40 Mg Capsule.Dr) 40 mg PO DAILY@0630 [facility] Last Admin: 12/29/22 08:23 Dose: 40 mg Ondansetron HCl (Ondansetron Odt 4 Mg Tab.Rapdis) 4 mg TRANSLINGU Q8H PRN PRN Reason: nausea/vomit Last Admin: 12/29/22 08:30 Dose: 4 mg Risperidone (Risperidone 1 Mg Tablet) 1 mg PO BID [facility] Last Admin: 12/29/22 08:24 Dose: 1 mg Vilazodone HCl (Vilazodone Hcl 10 Mg Tablet) 10 mg PO DAILY [facility] Last Admin: 12/29/22 08:23 Dose: 10 mg Vilazodone HCl (Vilazodone Hcl 20 Mg Tablet) 20 mg PO DAILY [facility] Last Admin: 12/29/22 08:22 Dose: 20 mg Zolpidem Tartrate (Zolpidem Tartrate 5 Mg Tablet) 5 mg PO BEDTIME [facility] Last Admin: 12/28/22 20:34 Dose: 5 mg Allergies Allergies Allergy/AdvReac Type Severity Reaction Status Date / Time penicillin G Allergy Severe Swelling Verified 08/29/22 06:44 amoxicillin [From AUGMENTIN] AdvReac Severe SWOLLEN Verified 08/29/22 06:44 THROAT clavulanic acid AdvReac Severe SWOLLEN Verified 11/20/22 08:24 [From AUGMENTIN] THROAT Penicillins [PENICILLINS] AdvReac Severe Swelling Verified 11/20/22 08:24 fluoxetine [From PROZAC] AdvReac Intermediate RASH Verified 08/29/22 06:43 Assessment & Plan Assessment & Plan (1) Post-traumatic stress disorder, chronic: Status: Acute Code(s): F43.12 - Post-traumatic stress disorder, chronic (2) MDD (major depressive disorder), recurrent episode, moderate: Status: Acute Code(s): F33.1 - Major depressive disorder, recurrent, moderate (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 She was brought on a sect 12 due to walking into traffic as suicide attempt. Pt reports increase depression due to problems with staff at , increase AH of past trauma. She also reports frequent urination, thirst, proteinuria seen in UA, but no signs of infection. A1C is less than 5. Hospital course: 12/28 discrepancy between patient reporting and collateral gathered from care home staff: -shed workers supervisor talked with care home who reports patient has no known history of auditory hallucinations. They say that patient normally gets along with staff and peers and there are no obvious interpersonal/relational problems. 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 -Patient reports that she has always had auditory hallucinations and the to medication trials, Rexulti and Abilify have never lessened them. She says AH says mean things like telling her to kill herself. Patient cannot point to any specific reason why her AH got worse and why it caused her to try and run into traffic. She also says the care home staff and housemates are mean to her, say mean things which has been triggering. Patient talked about history of eating disorder problems and that she will alternate between urges to binge eat and then per jar restrict; she denies current symptoms and agrees to supplement diet with Ensure. Patient asks if Abilify can go back to 5 mg in the morning and 15 at bedtime; she also wants to be back on Cogentin for what she vaguely describes as possibly akathisia; television script writer discussed how treatment for akathisia is different than Cogentin however patient said that Cogentin seems to make it better; in effort to reduce polypharmacy, she agreed to try half dose. Patient however would like auditory hallucinations or directly addressed and agrees to trial of Risperdal. She also complains of nightmares and flashbacks to trauma and agrees to try clonidine p.r.n. Initial formulation: There is a discrepancy between patient's report and collateral gathered from care home staff. Patient reports long-time history of auditory hallucinations that are mean and command; however she says she has only ever been on 2 antipsychotics, both of them more recently in her adult life and very similar, Rexulti and now Abilify. intermediate reports that for all the years they have known her there has never been mention of any auditory hallucinations. This history seems to point more toward mood congruent auditory hallucinations rather than a psychotic illness. That said, patient reports feeling triggered by something and had unsafe behavior (not sure if attempt vs gesture). Will try to help with reported symptoms however, other than hospitalization for stabilization and safety, primary treatment may be long-term work with outpatient therapist. Patient reports she is feeling much better; she denies any AVH or SI or HI and feels that the time she spent ear was adequate. She would like discharge. Discussing medications she did not feel a need to be on Risperdal as a scheduled medication but asked if he could stay a p.r.n. if she had auditory hallucinations to which television script writer was amenable. shed workers supervisor discussed case with outpatient staff who reports that patient is at baseline and appropriate for discharge back to the community. PLAN Admit to M3, CV, 15 minutes checks for safety Abilify 5 mg q.a.m. Abilify 15 mg at bedtime Will start Risperdal 1 mg b.i.d. for patient's report of auditory hallucinations; may also serve as stabilizing Continue Cogentin but will reduce dose to Cogentin 0.5 mg q.h.s.; patient has vague report of potentially akathisia Will start clonidine 0.1 mg Q 4 p.r.n. for anxiety, trauma Continue to obtain collateral information Patient educated on: diagnosis and medication risk/benefits Informed Consent: understands Reason for continued inpatient stay Substantial Risk for: stable for discharge Time Spent With Patient Time: Total time managing care of this patient today ____ minutes.
[2022-12-29] MEDS: Ibuprofen 600 MG TABLET PO (11:38)
[2022-12-29] MEDS: Magnesium Hydrox/Alum Hydrox 30 ML ORAL.SUSP PO (15:40)
[2022-12-29 20:02] VITALS: BP 139/81; PULSE 112; RESP 20; TEMP 36.7; O2SAT 100
[2022-12-29] MEDS: ARIPiprazole 15 MG TABLET PO (20:43)
[2022-12-29] MEDS: Benztropine Mesylate 0.5 MG TABLET PO (20:44)
[2022-12-29] MEDS: hydrOXYzine HCL 50 MG TABLET PO (20:44)
[2022-12-29] MEDS: Zolpidem Tartrate 5 MG TABLET PO (20:50)
[2022-12-29] MEDS: cloNIDine HCL 0.1 MG TABLET PO (22:10)
[2022-12-30] MEDS: Omeprazole 40 MG CAPSULE.DR PO (06:39)
[2022-12-30] MEDS: Multivitamin TABLET 1 TAB PO (08:46)
[2022-12-30] MEDS: Vilazodone HCL 20 MG TABLET PO (08:47)
[2022-12-30] MEDS: ARIPiprazole 5 MG TABLET PO (08:48)
[2022-12-30] MEDS: lamoTRIgine 100 MG TABLET 200 MG PO (08:48)
[2022-12-30] MEDS: risperiDONE 1 MG TABLET PO (08:48)
[2022-12-30] MEDS: Mirabegron 50 MG TAB.ER.24H PO (08:49)
[2022-12-30] MEDS: Vilazodone HCL 10 MG TABLET PO (08:51)
[2022-12-30] MEDS: hydrOXYzine HCL 25 MG TABLET PO (08:54)
--- NOTE | 2022-12-30 09:19 | P.DS_ITS ---
DS: Providers Provider Date of Service: 12/30/22 Date of admission: 12/26/22 18:34 Date of discharge: 12/30/22 Primary care physician: Enrique Benítez MD Attending physician on admission: Salo Choudhary Consults: 12/25/22 19:24 Consult to Care Team Stat Comment: Reason for consultation: si Attending physician on discharge: Salo Choudhary DS: Diagnosis Discharge Diagnosis (1) Post-traumatic stress disorder, chronic: Status: Acute (2) MDD (major depressive disorder), recurrent episode, moderate: Status: Acute (3) Retts syndrome: Status: Acute DS: Medications Discharge Medications Home Medications: Home Medications Medication Instructions Recorded Confirmed albuterol 90 mcg/actuation aerosol 180 mcg inhalation Q4H PRN 11/19/22 12/25/22 inhaler Shortness Of Breath aripiprazole 15 mg tablet 15 mg PO BEDTIME 11/19/22 12/25/22 calcium carbonate 600 mg calcium 600 mg PO BEDTIME 11/19/22 12/25/22 (1,500 mg) tablet hydroxyzine pamoate 25 mg capsule 25 mg PO BID PRN Anxiety 11/19/22 12/25/22 hydroxyzine pamoate 50 mg capsule 50 mg PO BEDTIME 11/19/22 12/25/22 (Vistaril) lamotrigine 200 mg tablet 200 mg PO QAM 11/19/22 12/25/22 (Lamictal) mirabegron 50 mg tablet,extended 50 mg PO QAM 11/19/22 12/25/22 release 24 hr (Myrbetriq) omeprazole 40 mg capsule,delayed 40 mg PO QAM 11/19/22 12/25/22 release vilazodone 10 mg tablet (Viibryd) 10 mg PO QAM 11/19/22 12/25/22 vilazodone 20 mg tablet (Viibryd) 20 mg PO QAM 11/19/22 12/25/22 zolpidem 10 mg tablet 10 mg PO BEDTIME 11/19/22 12/25/22 Previous Rx's Medication Instructions Recorded benztropine 0.5 mg tablet 0.5 mg PO BEDTIME 30 days #30 tabs 12/30/22 ondansetron 4 mg disintegrating 4 mg translingual Q8H PRN 12/30/22 tablet nausea/vomit 30 days #14 tabs risperidone 0.5 mg tablet 0.5 mg PO BID PRN AH 30 days #30 12/30/22 tabs Mental Status Exam Mental Status Exam Narrative: Pt is alert and oriented; behavior is cooperative, friendly and calm; patient is not in distress; dressed in casual attire with unkempt hair but adequate hygien e; mood is described as good and affect congruent; eye contact appropriate; Speech is normal rate, volume and prosody and not pressured; no psychomotor agitation/retardation present; thought process is organized and goal directed; Thought content is on tx; otherwise pertinent to relevant topics and without any delusional content, paranoid ideations or grandiosity; denies any SI/HI. There is no evidence of perceptual disturbance. Patients insight and judgment are impaired but fair and at baseline. Data Data Completed and Pending Completed studies during hospitalization [Text1]: 12/25/22 12/25/22 12/25/22 19:04 19:04 19:06 Estimat Average Glucose Hemoglobin A1c % Triglycerides Cholesterol LDL Cholesterol, Calc HDL Cholesterol TSH Urine Color Yellow Urine Appearance Clear Urine pH 7.0 Ur Specific [place] 1.020 Urine Protein 100 (2+) H Urine Glucose (UA) Negative Urine Ketones Negative Urine Blood Negative Urine Nitrite Negative Ur Leukocyte Esterase Negative Urine RBC 0-2 Urine WBC 0-5 Ur Squamous Epith Cells 6-10 Urine Bacteria None Seen Hyaline Casts 0-2 Urine Test NEGATIVE Urine Opiates Screen Urine Fentanyl Screen Ur Barbiturates Screen Ur Phencyclidine Scrn Ur Amphetamines Screen U Benzodiazepines Scrn Urine Cocaine Screen U Marijuana (THC) Screen COVID-19 ([facility]) Negative COVID-19 Clin Com See Note 12/26/22 12/27/22 12/27/22 17:53 11:37 11:37 Estimat Average Glucose 88 Hemoglobin A1c % 4.7 Triglycerides 118 Cholesterol 205 LDL Cholesterol, Calc 125 HDL Cholesterol 57 TSH 1.15 Urine Color Urine Appearance Urine pH Ur Specific [place] Urine Protein Urine Glucose (UA) Urine Ketones Urine Blood Urine Nitrite Ur Leukocyte Esterase Urine RBC Urine WBC Ur Squamous Epith Cells Urine Bacteria Hyaline Casts Urine Test Urine Opiates Screen Not Detected Urine Fentanyl Screen POSITIVE H Ur Barbiturates Screen Not Detected Ur Phencyclidine Scrn Not Detected Ur Amphetamines Screen Not Detected U Benzodiazepines Scrn Not Detected Urine Cocaine Screen Not Detected U Marijuana (THC) Screen Not Detected COVID-19 ([facility]) COVID-19 Clin Com 12/27/22 14:56 Estimat Average Glucose Hemoglobin A1c % Triglycerides Cholesterol LDL Cholesterol, Calc HDL Cholesterol TSH Urine Color Yellow Urine Appearance Clear Urine pH 6.0 Ur Specific [place] 1.010 Urine Protein Negative Urine Glucose (UA) Negative Urine Ketones Negative Urine Blood Negative Urine Nitrite Negative Ur Leukocyte Esterase Negative Urine RBC Urine WBC Ur Squamous Epith Cells Urine Bacteria Hyaline Casts Urine Test Urine Opiates Screen Urine Fentanyl Screen Ur Barbiturates Screen Ur Phencyclidine Scrn Ur Amphetamines Screen U Benzodiazepines Scrn Urine Cocaine Screen U Marijuana (THC) Screen COVID-19 ([facility]) COVID-19 Clin Com Imaging Diagnostic Imaging Impressions Ribs X-Ray 12/25/22 19:44 IMPRESSION: Unremarkable examination. DS: Summary Hospital Course Hospital Course: Ms. 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 She was brought on a sect 12 due to walking into traffic as suicide attempt. Pt reports increase depression due to problems with staff at , increase AH of past trauma. She also reports frequent urination, thirst, proteinuria seen in UA, but no signs of infection. A1C is less than 5. Hospital course: 12/28 discrepancy between patient reporting and collateral gathered from senior living staff: -extension worker talked with senior living who reports patient has no known history of auditory hallucinations. They say that patient normally gets along with staf f and peers and there are no obvious interpersonal/relational problems. 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 -On the unit, Patient reports that she has always had auditory hallucinations and the to medication trials, Rexulti and Abilify have never lessened them. She says AH says mean things like telling her to kill herself. Patient cannot point to any specific reason why her AH got worse and why it caused her to try and run into traffic. She also says the senior living staff and housemates are mean to her, say mean things which has been triggering. Patient talked about history of eating disorder problems and that she will alternate between urges to binge eat and then per jar restrict; she denies current symptoms and agrees to supplement diet with Ensure. Patient asks if Abilify can go back to 5 mg in the morning and 15 at bedtime; she also wants to be back on Cogentin for what she vaguely describes as possibly akathisia; account underwriter discussed how treatment for akathisia is different than Cogentin however patient said that Cogentin seems to make it better; in effort to reduce polypharmacy, she agreed to try half dose. Patient however would like auditory hallucinations or directly addressed and agrees to trial of Risperdal. She also complains of nightmares and flashbacks to trauma and agrees to try clonidine p.r.n. -further review of history, reveals that despite patient's current report of time of AH that are mean and commanding, she says she has only ever been on 2 antipsychotics, both of which were prescribed fairly recently in her adult life and happened to be similar agents Brexpiprazole and now Aripiprazole. This is a very limited history of antipsychotic medication for a patient who reports decades long psychotic symptoms during which time she has has also had wraparound services and access to psychiatric evaluation and prescribing. This history makes it more likely that patient is not an accurate historian. The discrepancy between patient's report and collateral gathered from senior living staff was cleared up by patients report the following day that she was feeling much better, no AVH, no SI and wanted discharge back home. As intermediate reports that for all the years they have known her there has never been mention of any auditory hallucinations, patient's report seems much more likely that if there are any AH at all they are mood congruent auditory hallucinations rather than due to a psychotic illness. Patient's senior living staff report that she is at baseline and appropriate for discharge back to the community and to return to the senior living. Patient maintains she is in good mood and denies psychiatric symptoms. Discussing medications she did not feel a need to be on Risperdal as a scheduled medication but asked if he could stay a p.r.n. if she had auditory hallucinations to which account underwriter was amenable. Patient is not in imminent risk for harm to self or others her request for discharge honored. Time spent discussing smoking cessation with patient: 3 to 10 minutes Status at Discharge Functional status at discharge: independent ambulation Overall status at discharge: patient is back to baseline Time Spent with Patient Time attestation: Total time managing care of this patient today ____ minutes. 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 Staff at the office will assist you with the appointment) Deloris Bean (Therapy) [Other] - 12/30/22 12:30 pm Deloris Bean (Therapy) [Other] - 01/06/23 12:30 pm (IN OFFICE APPOINTMENT) Enrique Benítez MD [Primary Care Provider] - 1 Week Discharge Medications: New benztropine 0.5 mg Tablet 0.5 mg PO BEDTIME 30 Days Qty: 30 0RF risperidone 0.5 mg tablet 0.5 mg PO BID PRN (Reason: AH) 30 Days Qty: 30 0RF ondansetron 4 mg Tablet,Disintegrating 4 mg translingual Q8H PRN (Reason: nausea/vomit) 30 Days Qty: 14 0RF Continued aripiprazole 15 mg Tablet 15 mg PO BEDTIME lamotrigine [Lamictal] 200 mg Tablet 200 mg PO QAM hydroxyzine pamoate 25 mg Capsule 25 mg PO BID PRN (Reason: Anxiety) vilazodone [Viibryd] 20 mg Tablet 20 mg PO QAM Rx Instructions: must administer with a meal/food Take with 10 mg Viibryd in am vilazodone [Viibryd] 10 mg Tablet 10 mg PO QAM Rx Instructions: must administer with a meal/food take in am with 20 mg viibryd hydroxyzine pamoate [Vistaril] 50 mg Capsule 50 mg PO BEDTIME zolpidem 10 mg Tablet 10 mg PO BEDTIME calcium carbonate 600 mg calcium (1,500 mg) Tablet 600 mg PO BEDTIME Myrbetriq 50 mg Tablet Extended Release 24 Hr 50 mg PO QAM omeprazole 40 mg Capsule,Delayed Release(Dr/Ec) 40 mg PO QAM albuterol 90 mcg/actuation Aerosol 180 mcg INHALATION Q4H PRN (Reason: Shortness Of Breath) Discontinued benztropine 1 mg Tablet 1 mg PO BEDTIME Discharge Orders: Discharge Order (Routine); Ordered 12/30/22 Ordered By: Salo Choudhary Diet: Regular diet Activity on Discharge: As tolerated Stand Alone Forms: Patient Portal Discharge page, Community Support Care Plan Goals: Maintain mood and safe behaviors Take medications as prescribed Practice coping skills Continue with outpatient providers and reach out to them as needed Health Concerns: Mood stability and behaviors Plan of Treatment: Follow up with your PCP, psychiatric provider and other outpatient providers regarding above concerns Take medications as prescribed Assessment: Risk assessment at time of discharge:? Patient was interviewed prior to discharge and found to be fully oriented and without any SI or HI. Patient has insight and demonstrates good judgment in terms of wanting to pursue treatment. Patient is not in imminent risk of harm to self or others and has a safety plan that includes presenting to the closest ER or calling 911 if feeling unsafe.? Patient has been observed closely by nursing and unit staff throughout admission; patient has not engaged in any behaviors that suggest dangerousness to self or others and has demonstrated appropriate behaviors and impulse control Discharge Date/Time: 12/30/22 11:15
--- NOTE | 2022-12-30 11:11 | PC.NURSE ---
Pt ready and aware of discharge. reviewed med instructions and appointments with Rosalva, she verbalized understanding . she denies SI/HI/AH/VH at this time. [facility] to provide transport.
== END 2022-12-30 11:15 | disposition home or self-care (01) | DRG 885 ==
LOC: HO.ED 12-26 16:54 → HO.PADLT16 12-26 21:30
PROVIDERS: Physician Assistant; Social Worker; Admitting Provider Psychiatry & Neurology Psychiatry; Emergency Provider Internal Medicine; PCP Internal Medicine; Visit Provider Psychiatry & Neurology Psychiatry
DX: F33.1 Major depressive disorder, recurrent, moderate (principal); R45.851 Suicidal ideations; F84.2 Rett's syndrome; F43.12 Post-traumatic stress disorder, chronic; Z20.822 Contact with and (suspected) exposure to COVID-19; F79 Unspecified intellectual disabilities; Z87.891 Personal history of nicotine dependence; Z88.0 Allergy status to penicillin; Z79.899 Other long term (current) drug therapy
CPT/HCPCS: 36415; 71101; 80061; 80307; 81001; 81003; 81025; 82077; 83036; 84443; 87635; 93005; 99284; 99285; S9485

== ENCOUNTER 2022-12-31 17:41 | Emergency (ER) | payer MEDICARE, MEDICAID, SELFPAY ==
[2022-12-31 17:51] VITALS: BP 131/80; BP 136/90; PULSE 110; PULSE 120; RESP 18; TEMP 36.8; O2SAT 100; O2SAT 98; BMI 22.8
[2022-12-31 18:48] LABS: MANUAL DIFF FLAG NO
[2022-12-31 18:52] LABS: Basophils Absolute Auto 0.1 X10*3/uL (0.0-0.2); Basophils Percent Auto 0.5 % (0-2); Eosinophils Percent Auto 0.2 % (0-4); Hematocrit 41.5 % (37.0-47.0); Hemoglobin 13.8 g/dl (12.0-16.0); Imm Gran Abs Auto 0.07 X10*3/uL (0.00-0.03); Imm Gran Pct Auto 0.6 % (0.0-0.4); Lymphocytes Absolute Auto 1.2 X10*3/uL (1.2-4.9); Lymphocytes Percent Auto 9.7 % (20-40); Mean Corpuscular HGB Conc 33.3 g/dl (31.0-35.0); Mean Corpuscular Hemoglobin 30.6 pg (27.0-33.0); Mean Platelet Volume 9.2 fL (9.4-12.3); Monocytes Absolute Auto 0.6 X10*3/uL (0.1-1.2); Monocytes Percent Auto 5.2 % (2-11); Neutrophils Absolute Auto 10.4 x10*3/uL (2.0-8.3); Neutrophils Percent Auto 83.8 % (45-73); Platelet Count 338 X10*3/uL (160-400); Red Blood Count 4.51 X10*6/uL (4.20-5.50); Red Cell Distribution Width 12.6 % (11.0-16.0); White Blood Count 12.3 X10*3/uL (4.8-10.8)
[2022-12-31 18:55] LABS: Appearance Urine Clear; Color Urine Yellow; Glucose Urine UA Negative (Negative); Leukocyte Esterase Urine Negative (Negative); Nitrite Urine Negative (Negative); PH 6.5 (5.0-9.0); Specific Gravity - Urine 1.025 (1.005-1.025); UMIC TRIGGER UACC YES; Urine Blood Negative (Negative); Urine Ketones 15 mg/dL (Negative); Urine Protein 30 (1+) mg/dL (Neg-Trace)
[2022-12-31 19:01] LABS: Amphetamine Screen Urine Not Detected (Not Detect); Barbiturates, Urine Not Detected (Not Detect); Benzodiazepines Screen Urine Not Detected (Not Detect); Cannabinoid Screen Urine Not Detected (Not Detect); Cocaine Screen Urine Not Detected (Not Detect); Fentanyl, urine POSITIVE (Not Detect); Opiate Screen Urine Not Detected (Not Detect); Phencyclidine Screen Urine Not Detected (Not Detect)
[2022-12-31 19:03] LABS: COVID-19 Test Negative (Negative); IDNOW Serial# 08D9AD1C
[2022-12-31 19:05] LABS: Alanine Aminotransferase 29 U/L (0-31); Albumin Level 4.4 g/dL (3.5-5.0); Alkaline Phosphatase 71 U/L (39-117); Anion Gap 12 (12-20); Aspartate Amino Transferase 28 U/L (5-31); Bilirubin Total 0.3 mg/dL (0.0-1.0); Blood Urea Nitrogen 16 mg/dL (9-16); Calcium 9.6 mg/dL (8.4-10.2); Carbon Dioxide 27 mmol/L (22-29); Chloride 105 mmol/L (96-108); Creatinine Clr Calc Pharmacy 107.5; Estimated Glomerular Filt Rate > 60; Glucose Random 95 mg/dL (60-115); Potassium 4.3 mmol/L (3.3-5.1); Sodium 140 mmol/L (135-145); Total Protein 6.6 g/dL (6.5-8.0)
[2022-12-31 19:13] LABS: Ethanol < 10 mg/dL
[2022-12-31 19:14] LABS: Bacteria Urine None Seen (None Seen); Hyaline Casts Urine 0-2 /LPF (0-2); RBC Urine 0-2 /HPF (0-2); Squamous Epithelial Cell Urine 0-2 /HPF (0-2); WBC Urine 0-5 /HPF (0-5)
[2022-12-31] MEDS: hydrOXYzine HCL 50 MG TABLET PO (21:35)
[2022-12-31] MEDS: Benztropine Mesylate 0.5 MG TABLET PO (21:35)
[2022-12-31] MEDS: ARIPiprazole 15 MG TABLET PO (21:35)
[2022-12-31] MEDS: Zolpidem Tartrate 5 MG TABLET PO (21:35)
--- NOTE | 2022-12-31 21:52 | ED.GENADULT ---
HPI - General Adult General Chief complaint: Psychiatric Symptoms <NOLAN Parisi - Last Filed: 01/01/23 18:10> Stated complaint: SI STATEMENTS, SEC 12, FROM [facility] PER EMS <NOLAN Parisi Last Filed: 01/01/23 18:10> Time Seen by Provider: 12/31/22 17:41 <NOLAN Parisi - Last Filed: 01/01/23 18:10> Source: patient <NOLAN Parisi - Last Filed: 01/01/23 18:10> Mode of arrival: ambulatory <NOLAN Parisi - Last Filed: 01/01/23 18:10> Limitations: no limitations <NOLAN Parisi Last Filed: 01/01/23 18:10> History of Present Illness HPI narrative: 32 yold female presents to the ED SI statement. patient with extensive pysch meds got into arguement with jail and she called police she knew personally. She than ran from the facility and was caught by the officer. She informed the officer she wanted to be with her grandmother and sister who are both . So officer brought her in for SI statment. <NOLAN Parisi - Last Filed: 01/01/23 18:10> Related Data Home medications: Home Medications Medication Instructions Recorded Confirmed albuterol 90 mcg/actuation aerosol 180 mcg inhalation Q4H PRN 11/19/22 12/31/22 inhaler Shortness Of Breath aripiprazole 15 mg tablet 15 mg PO BEDTIME 11/19/22 12/31/22 calcium carbonate 600 mg calcium 600 mg PO BEDTIME 11/19/22 12/31/22 (1,500 mg) tablet hydroxyzine pamoate 25 mg capsule 25 mg PO BID PRN Anxiety 11/19/22 12/31/22 hydroxyzine pamoate 50 mg capsule 50 mg PO BEDTIME 11/19/22 12/31/22 (Vistaril) lamotrigine 200 mg tablet 200 mg PO QAM 11/19/22 12/31/22 (Lamictal) mirabegron 50 mg tablet,extended 50 mg PO QAM 11/19/22 12/31/22 release 24 hr (Myrbetriq) omeprazole 40 mg capsule,delayed 40 mg PO QAM 11/19/22 12/31/22 release vilazodone 10 mg tablet (Viibryd) 10 mg PO QAM 11/19/22 12/31/22 vilazodone 20 mg tablet (Viibryd) 20 mg PO QAM 11/19/22 12/31/22 zolpidem 10 mg tablet 10 mg PO BEDTIME 11/19/22 12/31/22 Previous Rx's Medication Instructions Recorded benztropine 0.5 mg tablet 0.5 mg PO BEDTIME 30 days #30 tabs 12/30/22 ondansetron 4 mg disintegrating 4 mg translingual Q8H PRN 12/30/22 tablet nausea/vomit 30 days #14 tabs risperidone 0.5 mg tablet 0.5 mg PO BID PRN AH 30 days #30 12/30/22 tabs <NOLAN Parisi - Last Filed: 01/01/23 18:10> Allergies/adverse reactions: Allergies Allergy/AdvReac Type Severity Reaction Status Date / Time penicillin G Allergy Severe Swelling Verified 08/29/22 06:44 amoxicillin [From AUGMENTIN] AdvReac Severe SWOLLEN Verified 08/29/22 06:44 THROAT clavulanic acid AdvReac Severe SWOLLEN Verified 11/20/22 08:24 [From AUGMENTIN] THROAT Penicillins [PENICILLINS] AdvReac Severe Swelling Verified 11/20/22 08:24 fluoxetine [From PROZAC] AdvReac Intermediate RASH Verified 08/29/22 06:43 <NOLAN Parisi - Last Filed: 01/01/23 18:10> Review of Systems Review of Systems: SI statement <NOLAN Parisi - Last Filed: 01/01/23 18:10> Yes all other systems are reviewed and are negative <NOLAN Parisi - Last Filed: 01/01/23 18:10> PMFSH Past Medical History Medical History: Medical History (Updated 01/01/23 @ 02:20 by NOLAN Parisi) Asthma MDD (major depressive disorder), recurrent episode, moderate Migraine Post-traumatic stress disorder, chronic Retts syndrome <NOLAN Parisi - Last Filed: 01/01/23 18:10> Social History Social History: Social History Household Members: Other Household Members Other:: Residential Home/Housemates Housing: House Housing Other:: [facility] Do you presently have visiting nurse or other home services: No Alcohol intake: never Patient Tobacco Use Status: Former Tobacco user e-Cigarette/Vaping Use: Never Used Second Hand Smoke Exposure: No Advance Directives: No Advance Directives Information Provided: No Healthcare Proxy: No Guardian: No service: No Sexual orientation: Don't Know <NOLAN Parisi Last Filed: 01/01/23 18:10> Physical Exam ED Vital Signs: Vital Signs - 24 hr 01/01/23 03:05 01/01/23 09:06 Temperature 97.4 F 98.0 F Pulse Rate 97 109 H Respiratory Rate 15 18 Blood Pressure 108/68 109/70 Pulse Oximetry 98 100 Oxygen Delivery Method Room Air Room Air BMI result Body Mass Index 22.8 <NOLAN Parisi Last Filed: 01/01/23 18:10> Vital Signs - 24 hr 01/01/23 03:05 01/01/23 09:06 Temperature 97.4 F 98.0 F Pulse Rate 97 109 H Respiratory Rate 15 18 Blood Pressure 108/68 109/70 Pulse Oximetry 98 100 Oxygen Delivery Method Room Air Room Air BMI result Body Mass Index 22.8 <Jay Trujillo MD - Last Filed: 01/01/23 07:34> Const General: cooperative, healthy appearing, comfortable, no acute distress, well developed, alert, awake and Physically active <NOLAN Parisi Last Filed: 01/01/23 18:10> Orientation/consciousness: oriented to person, oriented to place, oriented to time and patient oriented x3 <NOLAN Parisi Last Filed: 01/01/23 18:10> HENMT Head: Yes normal to inspection, Yes No palpable skull fracture present, Yes normocephalic, Yes atraumatic and No abrasion <NOLAN Parisi Last Filed: 01/01/23 18:10> Eyes General: appearance normal, both eyes and all related structures <NOLAN Parisi Last Filed: 01/01/23 18:10> Neck Neck: Yes normal visual inspection, Yes full ROM, Yes no lymphadenopathy, Yes no meningeal signs, Yes trachea midline, Yes supple, No anterior neck swelling and No tender <Eusebio JrNOLAN Robert Last Filed: 01/01/23 18:10> Chest Chest palpation & inspection: normal inspection of the chest and normal palpation of entire chest wall <Eusebio JrNOLAN Robert Last Filed: 01/01/23 18:10> Resp Effort & Inspection: normal respiratory effort and able to speak in complete sentences <Eusebio JrNOLAN Last Filed: 01/01/23 18:10> Auscultation: clear to auscultation bilaterally <Eusebio Jr, PA Robert Last Filed: 01/01/23 18:10> Cardio Jugular venous distension: no JVD <Eusebio Jr, PA Last Filed: 01/01/23 18:10> Heart sounds: S1 normal heart sound present and S2 normal heart sound present <Eusebio Jr, PA Filed: 01/01/23 18:10> GI Inspection: Yes normal to inspection and No abdominal wall ecchymosis <Eusebio Jr, PA Last Filed: 01/01/23 18:10> Palpation (GI): Soft to palpation, not firm, nontender, no guarding and not rigid <Eusebio Jr NOLAN Last Filed: 01/01/23 18:10> General: No CVA tenderness and Yes no CVA tenderness <Eusebio Jr NOLAN Last Filed: 01/01/23 18:10> Back/Spine/Pelvis Back: no CVA tenderness, No CVA tenderness and No back tenderness <Eusebio Jr NOLAN Last Filed: 01/01/23 18:10> Skin General skin exam: no rashes or lesions noted and elasticity normal <Eusebio Jr NOLAN Last Filed: 01/01/23 18:10> Neuro General: oriented to person, oriented to place, oriented to time, patient oriented x3, gait normal, tone normal, moves all extremities, Normal light touch and pain sensation, no meningeal signs, no focal motor deficits, CN's II-XI intact bilaterally and normal sensation to monofilament <Eusebio Jr, PA Robert Last Filed: 01/01/23 18:10> Extrem General: Yes normal to inspection and Yes full ROM <Eusebio Jr, PA Last Filed: 01/01/23 18:10> Psych Appearance: grossly normal, well kempt and not disheveled <NOLAN Parisi - Last Filed: 01/01/23 18:10> Course Course Course Narrative: 32-year-old female with SI states he will have basic labs and care team consult placed. <NOLAN Parisi - Last Filed: 01/01/23 18:10> Reevaluation(s) Reevaluation #1: Labs are normal. Care team crisis consulted came and evaluated patient does not recommend psych admission. He states patient could stay overnight and patient will be picked up by jail in the morning. States patient is not suicidal or homicidal. <NOLAN Parisi - Last Filed: 01/01/23 18:10> Time: 22:12 <NOLAN Parisi - Last Filed: 01/01/23 18:10> Reevaluation #2: Patient was cleared by the psychiatric team last night and was kept in the emergency department overnight. According to the nursing there were no incidents overnight, therefore the patient will be discharged this morning. <Jay Trujillo MD - Last Filed: 01/01/23 07:34> Time: 07:34 <Jay Trujillo MD - Last Filed: 01/01/23 07:34> Medications Administered Discontinued Medications Generic Name Dose Route Start Last Admin Trade Name Freq PRN Reason Stop Dose Admin Aripiprazole 15 mg 12/31/22 21:30 12/31/22 21:35 Aripiprazole 15 Mg Tablet PO 15 mg BEDTIME TERESA Administration Benztropine Mesylate 0.5 mg 12/31/22 21:30 12/31/22 21:35 Benztropine Mesylate 0.5 Mg Tablet PO 0.5 mg BEDTIME TERESA Administration Hydroxyzine HCl 50 mg 12/31/22 21:30 12/31/22 21:35 Hydroxyzine Hcl 50 Mg Tablet PO 50 mg BEDTIME TERESA Administration Lamotrigine 200 mg 01/01/23 09:00 01/01/23 08:08 Lamotrigine 100 Mg Tablet PO 200 mg DAILY TERESA Administration Mirabegron 50 mg 01/01/23 09:00 01/01/23 08:07 Mirabegron 50 Mg Tab.Er.24h PO 50 mg DAILY TERESA Administration Omeprazole 40 mg 01/01/23 06:30 01/01/23 06:04 Omeprazole 40 Mg Capsule. PO 40 mg DAILY@30 TERESA Administration Vilazodone HCl 10 mg 01/01/23 09:00 01/01/23 08:08 Vilazodone Hcl 10 Mg Tablet PO 10 mg DAILY TERESA Administration Vilazodone HCl 20 mg 01/01/23 09:00 01/01/23 08:07 Vilazodone Hcl 20 Mg Tablet PO 20 mg DAILY TERESA Administration Zolpidem Tartrate 5 mg 12/31/22 21:30 12/31/22 21:35 Zolpidem Tartrate 5 Mg Tablet PO 5 mg BEDTIME TERESA Administration <NOLAN Parisi - Last Filed: 01/01/23 18:10> Medications Administered Discontinued Medications Generic Name Dose Route Start Last Admin Trade Name Freq PRN Reason Stop Dose Admin Aripiprazole 15 mg 12/31/22 21:30 12/31/22 21:35 Aripiprazole 15 Mg Tablet PO 15 mg BEDTIME TERESA Administration Benztropine Mesylate 0.5 mg 12/31/22 21:30 12/31/22 21:35 Benztropine Mesylate 0.5 Mg Tablet PO 0.5 mg BEDTIME TERESA Administration Hydroxyzine HCl 50 mg 12/31/22 21:30 12/31/22 21:35 Hydroxyzine Hcl 50 Mg Tablet PO 50 mg BEDTIME TERESA Administration Lamotrigine 200 mg 01/01/23 09:00 01/01/23 08:08 Lamotrigine 100 Mg Tablet PO 200 mg DAILY TERESA Administration Mirabegron 50 mg 01/01/23 09:00 01/01/23 08:07 Mirabegron 50 Mg Tab.Er.24h PO 50 mg DAILY TERESA Administration Omeprazole 40 mg 01/01/23 06:30 01/01/23 06:04 Omeprazole 40 Mg Capsule. PO 40 mg DAILY@30 TERESA Administration Vilazodone HCl 10 mg 01/01/23 09:00 01/01/23 08:08 Vilazodone Hcl 10 Mg Tablet PO 10 mg DAILY TERESA Administration Vilazodone HCl 20 mg 01/01/23 09:00 01/01/23 08:07 Vilazodone Hcl 20 Mg Tablet PO 20 mg DAILY TERESA Administration Zolpidem Tartrate 5 mg 12/31/22 21:30 12/31/22 21:35 Zolpidem Tartrate 5 Mg Tablet PO 5 mg BEDTIME TERESA Administration <Jay Trujillo MD - Last Filed: 01/01/23 07:34> Medical Decision Making Medical Decision Making [facility] Narrative: 32-year-old female presents to the ED for having argument with jail and making SI statements as per officer. Patient presently not suicidal or homicidal. Labs are normal. Patient evaluated by crisis team recommends patient be discharged in the morning. <NOLAN Parisi - Last Filed: 01/01/23 18:10> Differential Diagnosis Differential Diagnoses: The differential diagnosis associated with the presentation includes (Depression, suicidal, homicidal,) <NOLAN Parisi - Last Filed: 01/01/23 18:10> Admission/Observation Consideration of admission/observation: Escalation of care including admission/observation considered <NOLAN Parisi - Last Filed: 01/01/23 18:10> Consult Healthcare Provider Management of the patient was discussed with: Behavioral Health Provider (Care team) <NOLAN Parisi - Last Filed: 01/01/23 18:10> Lab Data [facility] Lab Attestation statement: I reviewed the patient's lab results. <NOLAN Parisi - Last Filed: 01/01/23 18:10> Result Diagrams: 12/31/22 18:40 12/31/22 18:40 <NOLAN Parisi - Last Filed: 01/01/23 18:10> Labs: Lab Results 12/31/22 12/31/22 12/31/22 Range/Units 18:31 18:31 18:32 WBC (4.8-10.8) X10*3/uL RBC (4.20-5.50) X10*6/uL Hgb (12.0-16.0) g/dl Hct (37.0-47.0) % MCV (80.0-98.0) fL MCH (27.0-33.0) pg MCHC (31.0-35.0) g/dl RDW (11.0-16.0) % Plt Count (160-400) X10*3/uL MPV (9.4-12.3) fL Immature Gran % (Auto) (0.0-0.4) % Neut % (Auto) (45-73) % Lymph % (Auto) (20-40) % [place] % (Auto) (2-11) % Eos % (Auto) (0-4) % Baso % (Auto) (0-2) % Lymph # (Auto) (1.2-4.9) X10*3/uL [place] # (Auto) (0.1-1.2) X10*3/uL Eos # (Auto) (0.0-0.4) X10*3/uL Baso # (Auto) (0.0-0.2) X10*3/uL Abs Immat Gran (auto) (0.00-0.03) X10*3/uL Absolute Neuts (auto) (2.0-8.3) x10*3/uL Absolute Nucleated RBC (0.0-0.012) X10*3/uL Nucleated RBC % (auto) (0.0-0.2) /100WBC Sodium (135-145) mmol/L Potassium (3.3-5.1) mmol/L Chloride (96-108) mmol/L Carbon Dioxide (22-29) mmol/L Anion Gap (12-20) BUN (9-16) mg/dL Creatinine (0.5-1.4) mg/dL Estim Creat Clear Calc Estimated GFR Random Glucose (60-115) mg/dL Calcium (8.4-10.2) mg/dL Total Bilirubin (0.0-1.0) mg/dL AST (5-31) U/L ALT (0-31) U/L Alkaline Phosphatase (39-117) U/L Total Protein (6.5-8.0) g/dL Albumin (3.5-5.0) g/dL Urine Color Yellow Urine Appearance Clear Urine pH 6.5 (5.0-9.0) Ur Specific [place] 1.025 (1.005-1.025) Urine Protein 30 (1+) H (Neg-Trace) mg/dL Urine Glucose (UA) Negative (Negative) mg/dL Urine Ketones 15 (Negative) mg/dL Urine Blood Negative (Negative) Urine Nitrite Negative (Negative) Ur Leukocyte Esterase Negative (Negative) Urine RBC 0-2 (0-2) /HPF Urine WBC 0-5 (0-5) /HPF Ur Squamous Epith Cells 0-2 (0-2) /HPF Urine Bacteria None Seen (None Seen) Hyaline Casts 0-2 (0-2) /LPF Urine Opiates Screen Not Detected (Not Detect) Urine Fentanyl Screen POSITIVE H (Not Detect) Ur Barbiturates Screen Not Detected (Not Detect) Ur Phencyclidine Scrn Not Detected (Not Detect) Ur Amphetamines Screen Not Detected (Not Detect) U Benzodiazepines Scrn Not Detected (Not Detect) Urine Cocaine Screen Not Detected (Not Detect) U Marijuana (THC) Screen Not Detected (Not Detect) Ethyl Alcohol mg/dL COVID-19 (LOGAN) Negative (Negative) COVID-19 Clin Com See Note 12/31/22 12/31/22 12/31/22 Range/Units 18:40 18:40 18:40 WBC 12.3 H (4.8-10.8) X10*3/uL RBC 4.51 (4.20-5.50) X10*6/uL Hgb 13.8 (12.0-16.0) g/dl Hct 41.5 (37.0-47.0) % MCV 92.0 (80.0-98.0) fL MCH 30.6 (27.0-33.0) pg MCHC 33.3 (31.0-35.0) g/dl RDW 12.6 (11.0-16.0) % Plt Count 338 (160-400) X10*3/uL MPV 9.2 L (9.4-12.3) fL Immature Gran % (Auto) 0.6 H (0.0-0.4) % Neut % (Auto) 83.8 H (45-73) % Lymph % (Auto) 9.7 L (20-40) % [place] % (Auto) 5.2 (2-11) % Eos % (Auto) 0.2 (0-4) % Baso % (Auto) 0.5 (0-2) % Lymph # (Auto) 1.2 (1.2-4.9) X10*3/uL [place] # (Auto) 0.6 (0.1-1.2) X10*3/uL Eos # (Auto) 0.0 (0.0-0.4) X10*3/uL Baso # (Auto) 0.1 (0.0-0.2) X10*3/uL Abs Immat Gran (auto) 0.07 H (0.00-0.03) X10*3/uL Absolute Neuts (auto) 10.4 H (2.0-8.3) x10*3/uL Absolute Nucleated RBC 0.000 (0.0-0.012) X10*3/uL Nucleated RBC % (auto) 0.0 (0.0-0.2) /100WBC Sodium 140 (135-145) mmol/L Potassium 4.3 (3.3-5.1) mmol/L Chloride 105 (96-108) mmol/L Carbon Dioxide 27 (22-29) mmol/L Anion Gap 12 (12-20) BUN 16 (9-16) mg/dL Creatinine 0.69 (0.5-1.4) mg/dL Estim Creat Clear Calc 107.5 Estimated GFR > 60 Random Glucose 95 (60-115) mg/dL Calcium 9.6 (8.4-10.2) mg/dL Total Bilirubin 0.3 (0.0-1.0) mg/dL AST 28 (5-31) U/L ALT 29 (0-31) U/L Alkaline Phosphatase 71 (39-117) U/L Total Protein 6.6 (6.5-8.0) g/dL Albumin 4.4 (3.5-5.0) g/dL Urine Color Urine Appearance Urine pH (5.0-9.0) Ur Specific [place] (1.005-1.025) Urine Protein (Neg-Trace) mg/dL Urine Glucose (UA) (Negative) mg/dL Urine Ketones (Negative) mg/dL Urine Blood (Negative) Urine Nitrite (Negative) Ur Leukocyte Esterase (Negative) Urine RBC (0-2) /HPF Urine WBC (0-5) /HPF Ur Squamous Epith Cells (0-2) /HPF Urine Bacteria (None Seen) Hyaline Casts (0-2) /LPF Urine Opiates Screen (Not Detect) Urine Fentanyl Screen (Not Detect) Ur Barbiturates Screen (Not Detect) Ur Phencyclidine Scrn (Not Detect) Ur Amphetamines Screen (Not Detect) U Benzodiazepines Scrn (Not Detect) Urine Cocaine Screen (Not Detect) U Marijuana (THC) Screen (Not Detect) Ethyl Alcohol < 10 mg/dL COVID-19 (LOGAN) (Negative) COVID-19 Clin Com <NOLAN Parisi - Last Filed: 01/01/23 18:10> Lab Results 12/31/22 12/31/22 12/31/22 Range/Units 18:31 18:31 18:32 WBC (4.8-10.8) X10*3/uL RBC (4.20-5.50) X10*6/uL Hgb (12.0-16.0) g/dl Hct (37.0-47.0) % MCV (80.0-98.0) fL MCH (27.0-33.0) pg MCHC (31.0-35.0) g/dl RDW (11.0-16.0) % Plt Count (160-400) X10*3/uL MPV (9.4-12.3) fL Immature Gran % (Auto) (0.0-0.4) % Neut % (Auto) (45-73) % Lymph % (Auto) (20-40) % [place] % (Auto) (2-11) % Eos % (Auto) (0-4) % Baso % (Auto) (0-2) % Lymph # (Auto) (1.2-4.9) X10*3/uL [place] # (Auto) (0.1-1.2) X10*3/uL Eos # (Auto) (0.0-0.4) X10*3/uL Baso # (Auto) (0.0-0.2) X10*3/uL Abs Immat Gran (auto) (0.00-0.03) X10*3/uL Absolute Neuts (auto) (2.0-8.3) x10*3/uL Absolute Nucleated RBC (0.0-0.012) X10*3/uL Nucleated RBC % (auto) (0.0-0.2) /100WBC Sodium (135-145) mmol/L Potassium (3.3-5.1) mmol/L Chloride (96-108) mmol/L Carbon Dioxide (22-29) mmol/L Anion Gap (12-20) BUN (9-16) mg/dL Creatinine (0.5-1.4) mg/dL Estim Creat Clear Calc Estimated GFR Random Glucose (60-115) mg/dL Calcium (8.4-10.2) mg/dL Total Bilirubin (0.0-1.0) mg/dL AST (5-31) U/L ALT (0-31) U/L Alkaline Phosphatase (39-117) U/L Total Protein (6.5-8.0) g/dL Albumin (3.5-5.0) g/dL Urine Color Yellow Urine Appearance Clear Urine pH 6.5 (5.0-9.0) Ur Specific [place] 1.025 (1.005-1.025) Urine Protein 30 (1+) H (Neg-Trace) mg/dL Urine Glucose (UA) Negative (Negative) mg/dL Urine Ketones 15 (Negative) mg/dL Urine Blood Negative (Negative) Urine Nitrite Negative (Negative) Ur Leukocyte Esterase Negative (Negative) Urine RBC 0-2 (0-2) /HPF Urine WBC 0-5 (0-5) /HPF Ur Squamous Epith Cells 0-2 (0-2) /HPF Urine Bacteria None Seen (None Seen) Hyaline Casts 0-2 (0-2) /LPF Urine Opiates Screen Not Detected (Not Detect) Urine Fentanyl Screen POSITIVE H (Not Detect) Ur Barbiturates Screen Not Detected (Not Detect) Ur Phencyclidine Scrn Not Detected (Not Detect) Ur Amphetamines Screen Not Detected (Not Detect) U Benzodiazepines Scrn Not Detected (Not Detect) Urine Cocaine Screen Not Detected (Not Detect) U Marijuana (THC) Screen Not Detected (Not Detect) Ethyl Alcohol mg/dL COVID-19 (LOGAN) Negative (Negative) COVID-19 Clin Com See Note 12/31/22 12/31/22 12/31/22 Range/Units 18:40 18:40 18:40 WBC 12.3 H (4.8-10.8) X10*3/uL RBC 4.51 (4.20-5.50) X10*6/uL Hgb 13.8 (12.0-16.0) g/dl Hct 41.5 (37.0-47.0) % MCV 92.0 (80.0-98.0) fL MCH 30.6 (27.0-33.0) pg MCHC 33.3 (31.0-35.0) g/dl RDW 12.6 (11.0-16.0) % Plt Count 338 (160-400) X10*3/uL MPV 9.2 L (9.4-12.3) fL Immature Gran % (Auto) 0.6 H (0.0-0.4) % Neut % (Auto) 83.8 H (45-73) % Lymph % (Auto) 9.7 L (20-40) % [place] % (Auto) 5.2 (2-11) % Eos % (Auto) 0.2 (0-4) % Baso % (Auto) 0.5 (0-2) % Lymph # (Auto) 1.2 (1.2-4.9) X10*3/uL [place] # (Auto) 0.6 (0.1-1.2) X10*3/uL Eos # (Auto) 0.0 (0.0-0.4) X10*3/uL Baso # (Auto) 0.1 (0.0-0.2) X10*3/uL Abs Immat Gran (auto) 0.07 H (0.00-0.03) X10*3/uL Absolute Neuts (auto) 10.4 H (2.0-8.3) x10*3/uL Absolute Nucleated RBC 0.000 (0.0-0.012) X10*3/uL Nucleated RBC % (auto) 0.0 (0.0-0.2) /100WBC Sodium 140 (135-145) mmol/L Potassium 4.3 (3.3-5.1) mmol/L Chloride 105 (96-108) mmol/L Carbon Dioxide 27 (22-29) mmol/L Anion Gap 12 (12-20) BUN 16 (9-16) mg/dL Creatinine 0.69 (0.5-1.4) mg/dL Estim Creat Clear Calc 107.5 Estimated GFR > 60 Random Glucose 95 (60-115) mg/dL Calcium 9.6 (8.4-10.2) mg/dL Total Bilirubin 0.3 (0.0-1.0) mg/dL AST 28 (5-31) U/L ALT 29 (0-31) U/L Alkaline Phosphatase 71 (39-117) U/L Total Protein 6.6 (6.5-8.0) g/dL Albumin 4.4 (3.5-5.0) g/dL Urine Color Urine Appearance Urine pH (5.0-9.0) Ur Specific [place] (1.005-1.025) Urine Protein (Neg-Trace) mg/dL Urine Glucose (UA) (Negative) mg/dL Urine Ketones (Negative) mg/dL Urine Blood (Negative) Urine Nitrite (Negative) Ur Leukocyte Esterase (Negative) Urine RBC (0-2) /HPF Urine WBC (0-5) /HPF Ur Squamous Epith Cells (0-2) /HPF Urine Bacteria (None Seen) Hyaline Casts (0-2) /LPF Urine Opiates Screen (Not Detect) Urine Fentanyl Screen (Not Detect) Ur Barbiturates Screen (Not Detect) Ur Phencyclidine Scrn (Not Detect) Ur Amphetamines Screen (Not Detect) U Benzodiazepines Scrn (Not Detect) Urine Cocaine Screen (Not Detect) U Marijuana (THC) Screen (Not Detect) Ethyl Alcohol < 10 mg/dL COVID-19 (LOGAN) (Negative) COVID-19 Clin Com <Jay Trujillo MD - Last Filed: 01/01/23 07:34> External Record Review External record reviewed: Other <NOLAN Parisi - Last Filed: 01/01/23 18:10> Discharge Plan Discharge Clinical Impression: Depression <NOLAN Parisi - Last Filed: 01/01/23 18:10> Patient Disposition: Home, Self-Care <NOLAN Parisi - Last Filed: 01/01/23 18:10> Instructions: Depression (ED) <NOLAN Parisi - Last Filed: 01/01/23 18:10> Additional Instructions: Return to the ED for any suicidal/homicidal ideation, any auditory/visual hallucinations, or any other concerning symptoms. Patient fell with primary care provider. <NOLAN Parisi - Last Filed: 01/01/23 18:10> Prescriptions: No Action aripiprazole 15 mg Tablet 15 mg PO BEDTIME lamotrigine [Lamictal] 200 mg Tablet 200 mg PO QAM hydroxyzine pamoate 25 mg Capsule 25 mg PO BID PRN (Reason: Anxiety) vilazodone [Viibryd] 20 mg Tablet 20 mg PO QAM Rx Instructions: must administer with a meal/food Take with 10 mg Viibryd in am vilazodone [Viibryd] 10 mg Tablet 10 mg PO QAM Rx Instructions: must administer with a meal/food take in am with 20 mg viibryd hydroxyzine pamoate [Vistaril] 50 mg Capsule 50 mg PO BEDTIME zolpidem 10 mg Tablet 10 mg PO BEDTIME calcium carbonate 600 mg calcium (1,500 mg) Tablet 600 mg PO BEDTIME Myrbetriq 50 mg Tablet Extended Release 24 Hr 50 mg PO QAM omeprazole 40 mg Capsule,Delayed Release(Dr/Ec) 40 mg PO QAM albuterol 90 mcg/actuation Aerosol 180 mcg INHALATION Q4H PRN (Reason: Shortness Of Breath) benztropine 0.5 mg Tablet 0.5 mg PO BEDTIME 30 Days Qty: 30 0RF risperidone 0.5 mg tablet 0.5 mg PO BID PRN (Reason: AH) 30 Days Qty: 30 0RF ondansetron 4 mg Tablet,Disintegrating 4 mg translingual Q8H PRN (Reason: nausea/vomit) 30 Days Qty: 14 0RF <NOLAN Parisi - Last Filed: 01/01/23 18:10> Interventions: [place]-Suicide Risk Severity Scale Last Done: 01/01/23 04:10 ED Discharge Assessment Last Done: 01/01/23 10:13 <NOLAN Parisi - Last Filed: 01/01/23 18:10> Discharge Date/Time: 01/01/23 10:14 <NOLAN Parisi - Last Filed: 01/01/23 18:10>
[2023-01-01 03:05] VITALS: BP 108/68; PULSE 97; RESP 15; TEMP 36.3; O2SAT 98
--- NOTE | 2023-01-01 04:12 | PC.NURSE ---
Patient slept through the night, no distress observed/reported, medication compliant, behavior non concerning, patient was assessed by care team, disposition current provider, intermediate staff will come pick her up in the morning, VSS, will continue to monitor.
[2023-01-01] MEDS: Omeprazole 40 MG CAPSULE.DR PO (06:04)
--- NOTE | 2023-01-01 08:06 | MHC.CARE ---
CARE Team spoke with piping supervisor [phone] - Pt will be picked up at 10am
[2023-01-01] MEDS: Mirabegron 50 MG TAB.ER.24H PO (08:07)
[2023-01-01] MEDS: Vilazodone HCL 20 MG TABLET PO (08:07)
[2023-01-01] MEDS: lamoTRIgine 100 MG TABLET 200 MG PO (08:08)
[2023-01-01] MEDS: Vilazodone HCL 10 MG TABLET PO (08:08)
[2023-01-01 09:06] VITALS: BP 109/70; PULSE 109; RESP 18; TEMP 36.7; O2SAT 100
== END 2023-01-01 10:14 | disposition home or self-care (01) ==
PROVIDERS: Emergency Medicine; Emergency Provider Emergency Medicine Emergency Medical Services
DX: F33.1 Major depressive disorder, recurrent, moderate (principal); R45.851 Suicidal ideations; F84.2 Rett's syndrome; F43.12 Post-traumatic stress disorder, chronic; Z20.822 Contact with and (suspected) exposure to COVID-19; Z79.899 Other long term (current) drug therapy
CPT/HCPCS: 80053; 80307; 81001; 82077; 85025; 87086; 87635; 99284; 99285; S9485

== ENCOUNTER 2023-01-01 18:52 | Emergency (ER) | payer MEDICARE, MEDICAID, SELFPAY ==
[2023-01-01 19:10] VITALS: BP 135/80; PULSE 115; PULSE 116; RESP 16; O2SAT 100; BMI 22.8
[2023-01-01 19:14] VITALS: BP 141/96; PULSE 116; RESP 18; O2SAT 99
[2023-01-01 19:38] LABS: Appearance Urine Cloudy; Color Urine Yellow; Glucose Urine UA Negative (Negative); Leukocyte Esterase Urine Trace (Negative); Nitrite Urine Negative (Negative); PH 5.5 (5.0-9.0); Specific Gravity - Urine 1.025 (1.005-1.025); UMIC TRIGGER UACC YES; Urine Blood Negative (Negative); Urine Ketones 15 mg/dL (Negative); Urine Protein 30 (1+) mg/dL (Neg-Trace)
[2023-01-01 19:41] LABS: UPreg QC Valid YES; Urine Pregnancy NEGATIVE (NEGATIVE)
[2023-01-01 19:45] LABS: Amphetamine Screen Urine Not Detected (Not Detect); Barbiturates, Urine Not Detected (Not Detect); Benzodiazepines Screen Urine Not Detected (Not Detect); Cannabinoid Screen Urine Not Detected (Not Detect); Cocaine Screen Urine Not Detected (Not Detect); Fentanyl, urine POSITIVE (Not Detect); Opiate Screen Urine Not Detected (Not Detect); Phencyclidine Screen Urine Not Detected (Not Detect)
[2023-01-01 19:53] LABS: Bacteria Urine Trace (None Seen); RBC Urine 0-2 /HPF (0-2); WBC Urine 0-5 /HPF (0-5)
[2023-01-01 20:00] VITALS: BP 110/79; PULSE 74; RESP 16; TEMP 36.6; O2SAT 98
--- NOTE | 2023-01-01 20:45 | PC.NURSE ---
Pt presents to Er with reports of visual and auditory hallucinations. Pt has also been aggressive towards half-way staff. Pt was put on a section 12 prior to arrival at ER. Pt is calm and cooperative at this time. Pt reports seeing and hearing people that have , including her brother. She is unable to tell me what the voices are saying, stating she is missing chunks of time when she talks to someone. Pt denies SI/HI at this time. Pt does appear anxious and said she needs her PRN rispiradone. Med rec has been done based on list from the half-way. Pt is resting quietly in bed at this time. Pt has been placed with a 1:1 sitter.
--- NOTE | 2023-01-01 20:52 | ED_ITS ---
HPI - Psych General Chief Complaint: Psychiatric Symptoms Stated Complaint: section 12 Time Seen by Provider: 01/01/23 20:45 Source: patient Mode of arrival: ambulatory Limitations: no limitations History of Present Illness HPI Narrative: 32 yold female presents to the ED hallucinations. patient denies any suicidal /homicidal ideation. Paient states not taking her respiradol. Patient denies any phsycial compalints. Patient was restrained. Patient denies any neuro deficits. Patient states missing blocks of time. Related Data Home Medications Medication Instructions Recorded Confirmed albuterol 90 mcg/actuation aerosol 180 mcg inhalation Q4H PRN 11/19/22 12/31/22 inhaler Shortness Of Breath aripiprazole 15 mg tablet 15 mg PO BEDTIME 11/19/22 01/01/23 calcium carbonate 600 mg calcium 600 mg PO BEDTIME 11/19/22 01/01/23 (1,500 mg) tablet hydroxyzine pamoate 25 mg capsule 25 mg PO BID PRN Anxiety 11/19/22 01/01/23 hydroxyzine pamoate 50 mg capsule 50 mg PO BEDTIME 11/19/22 01/01/23 (Vistaril) lamotrigine 200 mg tablet 200 mg PO QAM 11/19/22 01/01/23 (Lamictal) mirabegron 50 mg tablet,extended 50 mg PO QAM 11/19/22 01/01/23 release 24 hr (Myrbetriq) omeprazole 40 mg capsule,delayed 40 mg PO QAM 11/19/22 01/01/23 release vilazodone 10 mg tablet (Viibryd) 10 mg PO QAM 11/19/22 01/01/23 vilazodone 20 mg tablet (Viibryd) 20 mg PO QAM 11/19/22 01/01/23 zolpidem 10 mg tablet 10 mg PO BEDTIME 11/19/22 01/01/23 Previous Rx's Medication Instructions Recorded benztropine 0.5 mg tablet 0.5 mg PO BEDTIME 30 days #30 tabs 12/30/22 ondansetron 4 mg disintegrating 4 mg translingual Q8H PRN 12/30/22 tablet nausea/vomit 30 days #14 tabs risperidone 0.5 mg tablet 0.5 mg PO BID PRN AH 30 days #30 12/30/22 tabs Allergies Allergy/AdvReac Type Severity Reaction Status Date / Time penicillin G Allergy Severe Swelling Verified 08/29/22 06:44 amoxicillin [From AUGMENTIN] AdvReac Severe SWOLLEN Verified 08/29/22 06:44 THROAT clavulanic acid AdvReac Severe SWOLLEN Verified 11/20/22 08:24 [From AUGMENTIN] THROAT Penicillins [PENICILLINS] AdvReac Severe Swelling Verified 11/20/22 08:24 fluoxetine [From PROZAC] AdvReac Intermediate RASH Verified 08/29/22 06:43 Review of Systems Review of Systems: hallucinations and eing aggressive Yes all other systems are reviewed and are negative [facility] Past Medical History Medical History (Updated 01/02/23 @ 01:51 by NOLAN Parisi) Asthma MDD (major depressive disorder), recurrent episode, moderate Migraine Post-traumatic stress disorder, chronic Retts syndrome Social History Social History Household Members: Other Household Members Other:: Residential Home/Housemates Housing: House Housing Other:: [facility] Do you presently have visiting nurse or other home services: No Alcohol intake: never Patient Tobacco Use Status: Former Tobacco user Smoked in Last 30 Days: No e-Cigarette/Vaping Use: Never Used Second Hand Smoke Exposure: No Use of substances other than those prescribed or required for medical reasons: No Advance Directives: No Advance Directives Information Provided: Yes Patient : No service: No Sexual orientation: Don't Know Physical Exam Vital Signs: Vital Signs: Last Vital Signs Temp 98.1 F 01/02/23 01:37 Pulse 114 H 01/02/23 01:37 Resp 19 01/02/23 01:37 BP 99/63 01/02/23 01:37 Pulse Ox 99 01/02/23 01:37 O2 Del Method Room Air 01/02/23 01:37 BMI result Body Mass Index 22.8 Const: General: cooperative, healthy appearing, comfortable, no acute distress, well developed, alert, awake and Physically active Orientation/consciousness: oriented to person, oriented to place, oriented to time and patient oriented x3 HEENT: Head: Yes normal to inspection, Yes No palpable skull fracture present, Yes normocephalic, Yes atraumatic and No abrasion Eyes: General: appearance normal, both eyes and all related structures Neck: Neck: Yes normal visual inspection, Yes full ROM, Yes no lymphadenopathy, Yes no meningeal signs, Yes trachea midline, No anterior neck swelling and No tender Chest: Chest palpation & inspection: normal inspection of the chest and normal palpation of entire chest wall Resp: Effort & Inspection: normal respiratory effort and able to speak in complete sentences Auscultation: clear to auscultation bilaterally Cardio: Jugular venous distension: no JVD Heart sounds: S1 normal heart sound present and S2 normal heart sound present GI: Inspection: Yes normal to inspection and No abdominal wall ecchymosis Palpation (GI): Soft to palpation, not firm, nontender, no guarding and not rigid : General: No CVA tenderness and Yes no CVA tenderness Back/Spine/Pelvis: Back: no CVA tenderness, No CVA tenderness and No back tenderness Skin: General skin exam: no rashes or lesions noted and elasticity normal Neuro: General: oriented to person, oriented to place, oriented to time, patient oriented x3, gait normal, tone normal, moves all extremities, Normal light touch and pain sensation, no meningeal signs, no focal motor deficits, CN's II-XI intact bilaterally and normal sensation to monofilament Extrem: General: Yes normal to inspection and Yes full ROM Psych: Appearance: grossly normal, well kempt and not disheveled Course Course Course Narrative: Patient presently alert oriented x3 UA DE as ordered. Patient will be evaluated by care team. Med rec done Medications Administered Generic Name Dose Route Start Last Admin Trade Name Freq PRN Reason Stop Dose Admin Aripiprazole 15 mg 01/01/23 21:30 01/01/23 21:46 Aripiprazole 15 Mg Tablet PO 15 mg BEDTIME TERESA Administration Benztropine Mesylate 0.5 mg 01/01/23 21:30 01/01/23 21:46 Benztropine Mesylate 0.5 Mg Tablet PO 0.5 mg BEDTIME TERESA Administration Hydroxyzine HCl 25 mg 01/01/23 21:29 01/02/23 01:30 Hydroxyzine Hcl 25 Mg Tablet PO 25 mg BID PRN Administration Anxiety Hydroxyzine HCl 50 mg 01/01/23 21:30 01/01/23 21:46 Hydroxyzine Hcl 50 Mg Tablet PO 50 mg BEDTIME TERESA Administration Risperidone 0.5 mg 01/01/23 21:29 01/01/23 21:45 Risperidone 0.5 Mg Tablet PO 0.5 mg BID PRN Administration AH Zolpidem Tartrate 5 mg 01/01/23 21:30 01/01/23 21:45 Zolpidem Tartrate 5 Mg Tablet PO 10 mg BEDTIME TERESA Administration Discontinued Medications Generic Name Dose Route Start Last Admin Trade Name Jordyq PRN Reason Stop Dose Admin Ibuprofen 800 mg 01/01/23 22:08 01/01/23 22:16 Ibuprofen 800 Mg Tablet PO 01/01/23 22:09 800 mg ONCE ONE Administration Medical Decision Making Medical Decision Making MDM Narrative: 32-year-old female presents to ED for for auditory hallucinations. Patient denies any homicidal or suicidal thoughts. Patient awaiting care team evaluation. Differential Diagnosis Differential Diagnoses: The differential diagnosis associated with the presentation includes (Depression, manic, bipolar) Admission/Observation Consideration of admission/observation: Escalation of care including admission/observation considered Consult Healthcare Provider Management of the patient was discussed with: [employer] (pending Care team) Lab Data [facility] Lab Attestation statement: I reviewed the patient's lab results. 01/02/23 00:03 01/02/23 00:03 Labs: Lab Results 01/01/23 01/01/23 01/01/23 Range/Units 19:28 19:28 19:28 WBC (4.8-10.8) X10*3/uL RBC (4.20-5.50) X10*6/uL Hgb (12.0-16.0) g/dl Hct (37.0-47.0) % MCV (80.0-98.0) fL MCH (27.0-33.0) pg MCHC (31.0-35.0) g/dl RDW (11.0-16.0) % Plt Count (160-400) X10*3/uL MPV (9.4-12.3) fL Immature Gran % (Auto) (0.0-0.4) % Neut % (Auto) (45-73) % Lymph % (Auto) (20-40) % Wake % (Auto) (2-11) % Eos % (Auto) (0-4) % Baso % (Auto) (0-2) % Lymph # (Auto) (1.2-4.9) X10*3/uL Wake # (Auto) (0.1-1.2) X10*3/uL Eos # (Auto) (0.0-0.4) X10*3/uL Baso # (Auto) (0.0-0.2) X10*3/uL Abs Immat Gran (auto) (0.00-0.03) X10*3/uL Absolute Neuts (auto) (2.0-8.3) x10*3/uL Absolute Nucleated RBC (0.0-0.012) X10*3/uL Nucleated RBC % (auto) (0.0-0.2) /100WBC Sodium (135-145) mmol/L Potassium (3.3-5.1) mmol/L Chloride (96-108) mmol/L Carbon Dioxide (22-29) mmol/L Anion Gap (12-20) BUN (9-16) mg/dL Creatinine (0.5-1.4) mg/dL Estim Creat Clear Calc Estimated GFR Random Glucose (60-115) mg/dL Calcium (8.4-10.2) mg/dL Urine Color Yellow Urine Appearance Cloudy Urine pH 5.5 (5.0-9.0) Ur Specific [place] 1.025 (1.005-1.025) Urine Protein 30 (1+) H (Neg-Trace) mg/dL Urine Glucose (UA) Negative (Negative) mg/dL Urine Ketones 15 (Negative) mg/dL Urine Blood Negative (Negative) Urine Nitrite Negative (Negative) Ur Leukocyte Esterase Trace H (Negative) Urine RBC 0-2 (0-2) /HPF Urine WBC 0-5 (0-5) /HPF Ur Squamous Epith Cells 11-20 (0-2) /HPF Urine Bacteria Trace (None Seen) Hyaline Casts 3-5 (0-2) /LPF Urine Test NEGATIVE (NEGATIVE) Urine Opiates Screen Not Detected (Not Detect) Urine Fentanyl Screen POSITIVE H (Not Detect) Ur Barbiturates Screen Not Detected (Not Detect) Ur Phencyclidine Scrn Not Detected (Not Detect) Ur Amphetamines Screen Not Detected (Not Detect) U Benzodiazepines Scrn Not Detected (Not Detect) Urine Cocaine Screen Not Detected (Not Detect) U Marijuana (THC) Screen Not Detected (Not Detect) Ethyl Alcohol mg/dL 01/02/23 01/02/23 Range/Units 00:03 00:03 WBC 8.1 (4.8-10.8) X10*3/uL RBC 4.14 L (4.20-5.50) X10*6/uL Hgb 12.5 (12.0-16.0) g/dl Hct 37.5 (37.0-47.0) % MCV 90.6 (80.0-98.0) fL MCH 30.2 (27.0-33.0) pg MCHC 33.3 (31.0-35.0) g/dl RDW 12.6 (11.0-16.0) % Plt Count 298 (160-400) X10*3/uL MPV 9.0 L (9.4-12.3) fL Immature Gran % (Auto) 0.6 H (0.0-0.4) % Neut % (Auto) 56.1 (45-73) % Lymph % (Auto) 32.3 (20-40) % Wake % (Auto) 9.5 (2-11) % Eos % (Auto) 0.9 (0-4) % Baso % (Auto) 0.6 (0-2) % Lymph # (Auto) 2.6 (1.2-4.9) X10*3/uL [place] # (Auto) 0.8 (0.1-1.2) X10*3/uL Eos # (Auto) 0.1 (0.0-0.4) X10*3/uL Baso # (Auto) 0.1 (0.0-0.2) X10*3/uL Abs Immat Gran (auto) 0.05 H (0.00-0.03) X10*3/uL Absolute Neuts (auto) 4.6 (2.0-8.3) x10*3/uL Absolute Nucleated RBC 0.000 (0.0-0.012) X10*3/uL Nucleated RBC % (auto) 0.0 (0.0-0.2) /100WBC Sodium 142 (135-145) mmol/L Potassium 4.1 (3.3-5.1) mmol/L Chloride 106 (96-108) mmol/L Carbon Dioxide 28 (22-29) mmol/L Anion Gap 12 (12-20) BUN 16 (9-16) mg/dL Creatinine 0.66 (0.5-1.4) mg/dL Estim Creat Clear Calc 112.4 Estimated GFR > 60 Random Glucose 81 (60-115) mg/dL Calcium 9.0 D (8.4-10.2) mg/dL Urine Color Urine Appearance Urine pH (5.0-9.0) Ur Specific [place] (1.005-1.025) Urine Protein (Neg-Trace) mg/dL Urine Glucose (UA) (Negative) mg/dL Urine Ketones (Negative) mg/dL Urine Blood (Negative) Urine Nitrite (Negative) Ur Leukocyte Esterase (Negative) Urine RBC (0-2) /HPF Urine WBC (0-5) /HPF Ur Squamous Epith Cells (0-2) /HPF Urine Bacteria (None Seen) Hyaline Casts (0-2) /LPF Urine Test (NEGATIVE) Urine Opiates Screen (Not Detect) Urine Fentanyl Screen (Not Detect) Ur Barbiturates Screen (Not Detect) Ur Phencyclidine Scrn (Not Detect) Ur Amphetamines Screen (Not Detect) U Benzodiazepines Scrn (Not Detect) Urine Cocaine Screen (Not Detect) U Marijuana (THC) Screen (Not Detect) Ethyl Alcohol < 10 mg/dL External Record Review External record reviewed: Inpatient record Discharge Plan Discharge Clinical Impression: Depression Patient Disposition: Still a Patient Prescriptions: No Action aripiprazole 15 mg Tablet 15 mg PO BEDTIME lamotrigine [Lamictal] 200 mg Tablet 200 mg PO QAM hydroxyzine pamoate 25 mg Capsule 25 mg PO BID PRN (Reason: Anxiety) vilazodone [Viibryd] 20 mg Tablet 20 mg PO QAM Rx Instructions: must administer with a meal/food Take with 10 mg Viibryd in am vilazodone [Viibryd] 10 mg Tablet 10 mg PO QAM Rx Instructions: must administer with a meal/food take in am with 20 mg viibryd hydroxyzine pamoate [Vistaril] 50 mg Capsule 50 mg PO BEDTIME zolpidem 10 mg Tablet 10 mg PO BEDTIME calcium carbonate 600 mg calcium (1,500 mg) Tablet 600 mg PO BEDTIME Myrbetriq 50 mg Tablet Extended Release 24 Hr 50 mg PO QAM omeprazole 40 mg Capsule,Delayed Release(Dr/Ec) 40 mg PO QAM albuterol 90 mcg/actuation Aerosol 180 mcg INHALATION Q4H PRN (Reason: Shortness Of Breath) benztropine 0.5 mg Tablet 0.5 mg PO BEDTIME 30 Days Qty: 30 0RF risperidone 0.5 mg tablet 0.5 mg PO BID PRN (Reason: AH) 30 Days Qty: 30 0RF ondansetron 4 mg Tablet,Disintegrating 4 mg translingual Q8H PRN (Reason: nausea/vomit) 30 Days Qty: 14 0RF Interventions: [place]-Suicide Risk Severity Scale Last Done: 01/01/23 19:14
[2023-01-01] MEDS: Zolpidem Tartrate 5 MG TABLET PO (21:45)
[2023-01-01] MEDS: risperiDONE 0.5 MG TABLET PO (21:45)
[2023-01-01] MEDS: ARIPiprazole 15 MG TABLET PO (21:46)
[2023-01-01] MEDS: Benztropine Mesylate 0.5 MG TABLET PO (21:46)
[2023-01-01] MEDS: hydrOXYzine HCL 50 MG TABLET PO (21:46)
[2023-01-01 22:00] VITALS: BP 128/87; PULSE 100; RESP 16; O2SAT 100
[2023-01-01] MEDS: Ibuprofen 800 MG TABLET PO (22:16)
[2023-01-02 00:08] LABS: MANUAL DIFF FLAG NO
[2023-01-02 00:09] LABS: Basophils Absolute Auto 0.1 X10*3/uL (0.0-0.2); Basophils Percent Auto 0.6 % (0-2); Eosinophils Absolute Auto 0.1 X10*3/uL (0.0-0.4); Eosinophils Percent Auto 0.9 % (0-4); Hematocrit 37.5 % (37.0-47.0); Hemoglobin 12.5 g/dl (12.0-16.0); Imm Gran Abs Auto 0.05 X10*3/uL (0.00-0.03); Imm Gran Pct Auto 0.6 % (0.0-0.4); Lymphocytes Absolute Auto 2.6 X10*3/uL (1.2-4.9); Lymphocytes Percent Auto 32.3 % (20-40); Mean Corpuscular HGB Conc 33.3 g/dl (31.0-35.0); Mean Corpuscular Hemoglobin 30.2 pg (27.0-33.0); Mean Corpuscular Volume 90.6 fL (80.0-98.0); Monocytes Absolute Auto 0.8 X10*3/uL (0.1-1.2); Monocytes Percent Auto 9.5 % (2-11); Neutrophils Absolute Auto 4.6 x10*3/uL (2.0-8.3); Neutrophils Percent Auto 56.1 % (45-73); Platelet Count 298 X10*3/uL (160-400); Red Blood Count 4.14 X10*6/uL (4.20-5.50); Red Cell Distribution Width 12.6 % (11.0-16.0); White Blood Count 8.1 X10*3/uL (4.8-10.8)
--- NOTE | 2023-01-02 00:10 | PC.NURSE ---
pt brought over from main ED, resting comfortably, no apparent distress, alert and oriented x4. Awaiting blood work at this time, pt to be seen by care team in the am
--- NOTE | 2023-01-02 00:14 | MHC.CARE ---
Pt never had a blood draw to become medically cleared. Blood was drawn at 0015 this evening. Pt will be seen by the CARE Team in the morning.
[2023-01-02 00:27] LABS: Anion Gap 12 (12-20); Blood Urea Nitrogen 16 mg/dL (9-16); Carbon Dioxide 28 mmol/L (22-29); Chloride 106 mmol/L (96-108); Creatinine Clr Calc Pharmacy 112.4; Estimated Glomerular Filt Rate > 60; Ethanol < 10 mg/dL; Glucose Random 81 mg/dL (60-115); Potassium 4.1 mmol/L (3.3-5.1); Sodium 142 mmol/L (135-145)
--- NOTE | 2023-01-02 00:44 | PC.NURSE ---
this RN sat with patient and spoke about past history. Pt reports hearing voices and seeing things/people. This RN validated pts feelings, pt seemed to be more calm at this time
[2023-01-02] MEDS: hydrOXYzine HCL 25 MG TABLET PO (01:30)
[2023-01-02 01:37] VITALS: BP 99/63; PULSE 114; RESP 19; TEMP 36.7; O2SAT 99
--- NOTE | 2023-01-02 06:09 | PC.NURSE ---
patient sleeping at this time, respirations equal and unlabored, no apparent distress. Continue plan of care for CARE team evaluation today
[2023-01-02] MEDS: Omeprazole 40 MG CAPSULE.DR PO (07:29)
[2023-01-02 07:38] VITALS: BP 111/79; PULSE 93; RESP 18; TEMP 36.3; O2SAT 100
[2023-01-02] MEDS: lamoTRIgine 100 MG TABLET 200 MG PO (07:50)
[2023-01-02] MEDS: Vilazodone HCL 10 MG TABLET PO (07:51)
[2023-01-02] MEDS: Mirabegron 50 MG TAB.ER.24H PO (07:51)
[2023-01-02] MEDS: Vilazodone HCL 20 MG TABLET PO (07:51)
--- NOTE | 2023-01-02 07:55 | PC.NURSE ---
pt is a/o x 3 no sob/anne noted speaks in full sentences. pt aware of plan of care. pt denies any si/hi. pt denies any pain/disc.
--- NOTE | 2023-01-02 08:55 | MHC.CARE ---
CARE Team internet programmer called group reservations coordinator ([phone]) to inform them of pt's d/c. No answer, left a voice message.
--- NOTE | 2023-01-02 11:13 | MHC.EDTECH ---
Patient ambulated to shower and washed up independently.
== END 2023-01-02 11:29 | disposition home or self-care (01) ==
PROVIDERS: Physician Assistant; Emergency Provider Internal Medicine; PCP Internal Medicine
DX: F33.1 Major depressive disorder, recurrent, moderate (principal); F11.10 Opioid abuse, uncomplicated; Z79.899 Other long term (current) drug therapy; Z87.891 Personal history of nicotine dependence
CPT/HCPCS: 36415; 80048; 80307; 81001; 81025; 82077; 85025; 99285

== ENCOUNTER 2023-01-05 01:16 | Emergency (ER) | payer MEDICARE, MEDICAID, SELFPAY ==
[2023-01-05 01:16] VITALS: BMI 25.7
[2023-01-05 01:21] VITALS: BP 123/79; PULSE 110; RESP 16; TEMP 36.8; O2SAT 99
[2023-01-05 01:50] LABS: Appearance Urine Clear; Color Urine Yellow; Glucose Urine UA Negative (Negative); Leukocyte Esterase Urine Small (1+) (Negative); Nitrite Urine Negative (Negative); PH 6.5 (5.0-9.0); UMIC TRIGGER UA YES; Urine Blood Negative (Negative); Urine Ketones 40 mg/dL (Negative); Urine Protein Trace mg/dL (Neg-Trace)
[2023-01-05 01:52] LABS: UPreg QC Valid YES; Urine Pregnancy NEGATIVE (NEGATIVE)
[2023-01-05 01:58] LABS: Amphetamine Screen Urine Not Detected (Not Detect); Barbiturates, Urine Not Detected (Not Detect); Benzodiazepines Screen Urine Not Detected (Not Detect); Cannabinoid Screen Urine Not Detected (Not Detect); Cocaine Screen Urine Not Detected (Not Detect); Fentanyl, urine Not Detected (Not Detect); Opiate Screen Urine Not Detected (Not Detect); Phencyclidine Screen Urine Not Detected (Not Detect)
[2023-01-05 02:00] LABS: Bacteria Urine None Seen (None Seen); Hyaline Casts Urine 0-2 /LPF (0-2); RBC Urine 0-2 /HPF (0-2); WBC Urine 0-5 /HPF (0-5)
[2023-01-05 02:11] LABS: COVID-19 Test Negative (Negative); IDNOW Serial# BCCEAD1C
[2023-01-05 02:18] LABS: Ethanol < 10 mg/dL
--- NOTE | 2023-01-05 02:26 | ED.PSYCH ---
HPI - Psych General Chief Complaint: Psychiatric Symptoms Stated Complaint: crisis Time Seen by Provider: 01/05/23 01:44 Source: patient Mode of arrival: EMS Limitations: no limitations History of Present Illness HPI Narrative: Patient history of PTSD major depressive disorder and retts syndrome the discharge from inpatient psych admission on 12/30 so says that she not able to get Risperdal as for CVA since voices and seeing stuff does not feel safe hearing voices which are bad and other stuff which does not like Related Data Home Medications Medication Instructions Recorded Confirmed albuterol 90 mcg/actuation aerosol 180 mcg inhalation Q4H PRN 11/19/22 01/05/23 inhaler Shortness Of Breath aripiprazole 15 mg tablet 15 mg PO BEDTIME 11/19/22 01/05/23 calcium carbonate 600 mg calcium 600 mg PO BEDTIME 11/19/22 01/05/23 (1,500 mg) tablet hydroxyzine pamoate 25 mg capsule 25 mg PO BID PRN Anxiety 11/19/22 01/05/23 hydroxyzine pamoate 50 mg capsule 50 mg PO BEDTIME 11/19/22 01/05/23 (Vistaril) lamotrigine 200 mg tablet 200 mg PO QAM 11/19/22 01/05/23 (Lamictal) mirabegron 50 mg tablet,extended 50 mg PO QAM 11/19/22 01/05/23 release 24 hr (Myrbetriq) omeprazole 40 mg capsule,delayed 40 mg PO QAM 11/19/22 01/05/23 release vilazodone 10 mg tablet (Viibryd) 10 mg PO QAM 11/19/22 01/05/23 vilazodone 20 mg tablet (Viibryd) 20 mg PO QAM 11/19/22 01/05/23 zolpidem 10 mg tablet 10 mg PO BEDTIME 11/19/22 01/05/23 Previous Rx's Medication Instructions Recorded benztropine 0.5 mg tablet 0.5 mg PO BEDTIME 30 days #30 tabs 12/30/22 ondansetron 4 mg disintegrating 4 mg translingual Q8H PRN 12/30/22 tablet nausea/vomit 30 days #14 tabs risperidone 0.5 mg tablet 0.5 mg PO BID PRN AH 30 days #30 04/21/23 tabs Allergies Allergy/AdvReac Type Severity Reaction Status Date / Time penicillin G Allergy Severe Swelling Verified 08/29/22 06:44 amoxicillin [From AUGMENTIN] AdvReac Severe SWOLLEN Verified 08/29/22 06:44 THROAT clavulanic acid AdvReac Severe SWOLLEN Verified 11/20/22 08:24 [From AUGMENTIN] THROAT Penicillins [PENICILLINS] AdvReac Severe Swelling Verified 11/20/22 08:24 fluoxetine [From PROZAC] AdvReac Intermediate RASH Verified 08/29/22 06:43 PMFSH Past Medical History Medical History (Updated 01/05/23 @ 06:59 by Robin Pichardo MD) Asthma MDD (major depressive disorder), recurrent episode, moderate Migraine Post-traumatic stress disorder, chronic Retts syndrome Social History Social History Household Members: Other Household Members Other:: Residential Home/Housemates Housing: House Housing Other:: [facility] Do you presently have visiting nurse or other home services: No Alcohol intake: never Patient Tobacco Use Status: Former Tobacco user e-Cigarette/Vaping Use: Never Used Second Hand Smoke Exposure: No Advance Directives: No Advance Directives Information Provided: Yes service: No Sexual orientation: Don't Know Physical Exam Vital Signs: Vital Signs: Last Vital Signs Temp 98.2 F 01/05/23 01:21 Pulse 110 H 01/05/23 01:21 Resp 16 01/05/23 01:21 BP 123/79 01/05/23 01:21 Pulse Ox 99 01/05/23 01:21 O2 Del Method Room Air 01/05/23 01:21 BMI result Body Mass Index 25.7 Medications Administered Generic Name Dose Route Start Last Admin Trade Name Freq PRN Reason Stop Dose Admin Hydroxyzine HCl 25 mg 01/05/23 05:18 01/05/23 05:44 Hydroxyzine Hcl 25 Mg Tablet PO 25 mg BID PRN Administration Anxiety Omeprazole 40 mg 01/05/23 06:30 01/05/23 05:44 Omeprazole 40 Mg Capsule. PO 40 mg DAILY@0630 TERESA Administration Discontinued Medications Generic Name Dose Route Start Last Admin Trade Name Freq PRN Reason Stop Dose Admin Risperidone 0.5 mg 01/05/23 03:04 01/05/23 03:09 Risperidone 0.5 Mg Tablet PO 01/05/23 03:05 0.5 mg ONCE ONE Administration Medical Decision Making Medical Decision Making MDM Narrative: Patient medically clear for care team evaluation Lab Data Labs: Lab Results 01/05/23 01/05/23 01/05/23 Range/Units 01:35 01:35 01:35 Urine Color Yellow Urine Appearance Clear Urine pH 6.5 (5.0-9.0) Ur Specific [place] 1.020 (1.005-1.025) Urine Protein Trace (Neg-Trace) mg/dL Urine Glucose (UA) Negative (Negative) mg/dL Urine Ketones 40 (Negative) mg/dL Urine Blood Negative (Negative) Urine Nitrite Negative (Negative) Ur Leukocyte Esterase Small (1+) H (Negative) Urine RBC 0-2 (0-2) /HPF Urine WBC 0-5 (0-5) /HPF Ur Squamous Epith Cells 6-10 (0-2) /HPF Urine Bacteria None Seen (None Seen) Hyaline Casts 0-2 (0-2) /LPF Urine Test (NEGATIVE) Urine Opiates Screen Not Detected (Not Detect) Urine Fentanyl Screen Not Detected (Not Detect) Ur Barbiturates Screen Not Detected (Not Detect) Ur Phencyclidine Scrn Not Detected (Not Detect) Ur Amphetamines Screen Not Detected (Not Detect) U Benzodiazepines Scrn Not Detected (Not Detect) Urine Cocaine Screen Not Detected (Not Detect) U Marijuana (THC) Screen Not Detected (Not Detect) Ethyl Alcohol mg/dL COVID-19 (LOGAN) Negative (Negative) COVID-19 Clin Com See Note 01/05/23 01/05/23 Range/Units 01:35 01:48 Urine Color Urine Appearance Urine pH (5.0-9.0) Ur Specific [place] (1.005-1.025) Urine Protein (Neg-Trace) mg/dL Urine Glucose (UA) (Negative) mg/dL Urine Ketones (Negative) mg/dL Urine Blood (Negative) Urine Nitrite (Negative) Ur Leukocyte Esterase (Negative) Urine RBC (0-2) /HPF Urine WBC (0-5) /HPF Ur Squamous Epith Cells (0-2) /HPF Urine Bacteria (None Seen) Hyaline Casts (0-2) /LPF Urine Test NEGATIVE (NEGATIVE) Urine Opiates Screen (Not Detect) Urine Fentanyl Screen (Not Detect) Ur Barbiturates Screen (Not Detect) Ur Phencyclidine Scrn (Not Detect) Ur Amphetamines Screen (Not Detect) U Benzodiazepines Scrn (Not Detect) Urine Cocaine Screen (Not Detect) U Marijuana (THC) Screen (Not Detect) Ethyl Alcohol < 10 mg/dL COVID-19 (LOGAN) (Negative) COVID-19 Clin Com Discharge Plan Discharge Clinical Impression: MDD (major depressive disorder), recurrent episode, moderate, Acute psychosis, Retts syndrome, Post-traumatic stress disorder, chronic Patient Disposition: Still a Patient Prescriptions: No Action aripiprazole 15 mg Tablet 15 mg PO BEDTIME lamotrigine [Lamictal] 200 mg Tablet 200 mg PO QAM hydroxyzine pamoate 25 mg Capsule 25 mg PO BID PRN (Reason: Anxiety) vilazodone [Viibryd] 20 mg Tablet 20 mg PO QAM Rx Instructions: must administer with a meal/food Take with 10 mg Viibryd in am vilazodone [Viibryd] 10 mg Tablet 10 mg PO QAM Rx Instructions: must administer with a meal/food take in am with 20 mg viibryd hydroxyzine pamoate [Vistaril] 50 mg Capsule 50 mg PO BEDTIME zolpidem 10 mg Tablet 10 mg PO BEDTIME calcium carbonate 600 mg calcium (1,500 mg) Tablet 600 mg PO BEDTIME Myrbetriq 50 mg Tablet Extended Release 24 Hr 50 mg PO QAM omeprazole 40 mg Capsule,Delayed Release(Dr/Ec) 40 mg PO QAM albuterol 90 mcg/actuation Aerosol 180 mcg INHALATION Q4H PRN (Reason: Shortness Of Breath) benztropine 0.5 mg Tablet 0.5 mg PO BEDTIME 30 Days Qty: 30 0RF risperidone 0.5 mg tablet 0.5 mg PO BID PRN (Reason: AH) 30 Days Qty: 30 0RF ondansetron 4 mg Tablet,Disintegrating 4 mg translingual Q8H PRN (Reason: nausea/vomit) 30 Days Qty: 14 0RF Interventions: [place]-Suicide Risk Severity Scale Last Done: 01/05/23 01:23
[2023-01-05] MEDS: risperiDONE 0.5 MG TABLET PO (03:09)
--- NOTE | 2023-01-05 05:15 | PC.NURSE ---
Patient reported increased restlessness and requested Resperidone 0.5 mg which is patient's regular PRN medication for restlessness, administered Risperidone 0.5 mg as ordered at 0309 with little effect, slept for an hour then stayed up, patient was little verbally aggressive towards staff member which she apologized later for her inappropriate behavior, VSS,care consult ordered/pending evaluation, behavior in general non concerning but at time becomes dysregulated, will continue to monitor.
[2023-01-05] MEDS: Omeprazole 40 MG CAPSULE.DR PO (05:44)
[2023-01-05] MEDS: hydrOXYzine HCL 25 MG TABLET PO (05:44)
[2023-01-05 07:27] VITALS: BP 117/77; PULSE 113; RESP 13; TEMP 36.5; O2SAT 94
[2023-01-05] MEDS: lamoTRIgine 100 MG TABLET 200 MG PO (07:54)
[2023-01-05] MEDS: Mirabegron 50 MG TAB.ER.24H PO (07:54)
[2023-01-05] MEDS: Vilazodone HCL 10 MG TABLET PO (07:54)
[2023-01-05] MEDS: Vilazodone HCL 20 MG TABLET PO (07:55)
--- NOTE | 2023-01-05 14:22 | PC.NURSE ---
Pt denies SI, SH, HI. C/O AH, VH at times. Pt able to identify coping skills and strategies yet continues to struggle while in the community. Pt has came to the Nursing station several times concerned about her discharge back to the [facility]. Pt remains in bed with covers pulled over her head and the lights on at this time. She ate all of breakfast and all of lunch.
== END 2023-01-05 17:26 | disposition home or self-care (01) ==
PROVIDERS: Emergency Provider Internal Medicine
DX: F23 Brief psychotic disorder (principal); F33.1 Major depressive disorder, recurrent, moderate; F84.2 Rett's syndrome; F43.12 Post-traumatic stress disorder, chronic; Z20.822 Contact with and (suspected) exposure to COVID-19; Z79.899 Other long term (current) drug therapy
CPT/HCPCS: 36415; 80307; 81001; 81025; 82077; 87635; 99284; S9485

== ENCOUNTER 2023-08-28 13:27 | Emergency (ER) | payer MEDICARE, MEDICAID, SELFPAY ==
[2023-08-28 13:41] VITALS: BP 124/76; BP 138/98; PULSE 102; PULSE 103; RESP 18; TEMP 36.8; O2SAT 100; O2SAT 98; BMI 25.0
[2023-08-28 14:05] LABS: MANUAL DIFF FLAG NO
[2023-08-28 14:14] VITALS: BP 124/76; PULSE 103; RESP 16; TEMP 36.8; O2SAT 100
[2023-08-28 14:15] LABS: Amphetamine Screen Urine Not Detected (Not Detect); Barbiturates, Urine Not Detected (Not Detect); Benzodiazepines Screen Urine Not Detected (Not Detect); Cannabinoid Screen Urine Not Detected (Not Detect); Cocaine Screen Urine Not Detected (Not Detect); Fentanyl, urine Not Detected (Not Detect); Opiate Screen Urine Not Detected (Not Detect); Phencyclidine Screen Urine Not Detected (Not Detect)
[2023-08-28 14:15] LABS: Basophils Absolute Auto 0.1 X10*3/uL (0.0-0.2); Basophils Percent Auto 1.2 % (0-2); Eosinophils Absolute Auto 0.1 X10*3/uL (0.0-0.4); Eosinophils Percent Auto 0.9 % (0-4); Hematocrit 41.9 % (37.0-47.0); Hemoglobin 13.8 g/dl (12.0-16.0); Imm Gran Abs Auto 0.05 X10*3/uL (0.00-0.03); Imm Gran Pct Auto 0.6 % (0.0-0.4); Lymphocytes Absolute Auto 1.5 X10*3/uL (1.2-4.9); Lymphocytes Percent Auto 19.1 % (20-40); Mean Corpuscular HGB Conc 32.9 g/dl (31.0-35.0); Mean Corpuscular Hemoglobin 30.6 pg (27.0-33.0); Mean Corpuscular Volume 92.9 fL (80.0-98.0); Mean Platelet Volume 8.9 fL (9.4-12.3); Monocytes Absolute Auto 0.5 X10*3/uL (0.1-1.2); Monocytes Percent Auto 6.5 % (2-11); Neutrophils Absolute Auto 5.6 x10*3/uL (2.0-8.3); Neutrophils Percent Auto 71.7 % (45-73); Platelet Count 422 X10*3/uL (160-400); Red Blood Count 4.51 X10*6/uL (4.20-5.50); Red Cell Distribution Width 12.6 % (11.0-16.0); White Blood Count 7.8 X10*3/uL (4.8-10.8)
[2023-08-28 14:16] LABS: Lithium 0.42 mmol/L (0.60-1.20)
[2023-08-28 14:18] LABS: Appearance Urine Turbid; Color Urine Dark Yellow; Glucose Urine UA Negative (Negative); Leukocyte Esterase Urine Moderate (2+) (Negative); Nitrite Urine Negative (Negative); PH 6.5 (5.0-9.0); Specific Gravity - Urine 1.025 (1.005-1.025); UMIC TRIGGER UACC YES; Urine Blood Negative (Negative); Urine Ketones 40 mg/dL (Negative); Urine Protein Trace mg/dL (Neg-Trace)
[2023-08-28 14:19] LABS: UPreg QC Valid YES; Urine Pregnancy NEGATIVE (NEGATIVE)
[2023-08-28 14:21] LABS: COVID-19 Test Negative (Negative); IDNOW Serial# BCCEAD1C
[2023-08-28 14:26] LABS: Acetaminophen LAB < 3 mcg/mL (<30); Alanine Aminotransferase 20 U/L (0-31); Albumin Level 4.5 g/dL (3.5-5.0); Alkaline Phosphatase 61 U/L (39-117); Anion Gap 13 (12-20); Aspartate Amino Transferase 20 U/L (5-31); Bilirubin Total 0.6 mg/dL (0.0-1.0); Blood Urea Nitrogen 11 mg/dL (9-16); Calcium 10.5 mg/dL (8.4-10.2); Carbon Dioxide 24 mmol/L (22-29); Chloride 106 mmol/L (96-108); Creatinine Clr Calc Pharmacy 94.2; Estimated Glomerular Filt Rate > 60; Ethanol < 10 mg/dL; Glucose Random 78 mg/dL (60-115); Potassium 4.3 mmol/L (3.3-5.1); Salicylate < 5.0 mg/dL (15-30); Sodium 139 mmol/L (135-145); Total Protein 7.3 g/dL (6.5-8.0)
[2023-08-28 14:32] LABS: Bacteria Urine 4+ (None Seen); Squamous Epithelial Cell Urine >20 /HPF (0-2); UACC Culture Trigger YES; WBC Urine 21-50 /HPF (0-5)
--- NOTE | 2023-08-28 14:50 | PHA.MEDREC ---
Addendum entered by Watson Davis 08/28/23 14:52: patient does have a Kyleena IUD Original Note: Pharmacy Consult ? Medication Reconciliation Pharmacy has completed the medication reconciliation. used list from facility.
--- NOTE | 2023-08-28 15:51 | PC.NURSE ---
Rosalva who prefers to go by [facility] was FAROOQ after calling 911 and reporting SI with a plan to jump into traffic. Per EMS she was in the street talking to police when they arrived and was agreeable to getting in the ambulance. On arrival PT stated they haven't bathed in days and that they aren't taking care of themselves. Questioned if they were on a section 12 and stated I said some really crazy stuff I'm surprised they didn't section me . PT continually at the nurses station and making statements such as I'm not safe here The police want to kill me people at my half-way want to kill me . PT making numerous requests and difficult to redirect away from nurses station. Med list faxed to pharmacy.
--- NOTE | 2023-08-28 17:01 | ED_ITS ---
HPI - Psych General Chief Complaint: Psychiatric Symptoms Stated Complaint: CRISIS,SI WITH PLAN Time Seen by Provider: 08/28/23 16:03 Source: patient Mode of arrival: EMS Limitations: no limitations History of Present Illness HPI Narrative: Patient is a 33-year-old female who presents to the emergency department via EMS. She is coming from her senior living. The patient reports that she got into an argument with a staff member, this is a new senior living for her. She recently had an inpatient psychiatric admission and [facility] for 3 months. She reports that the staff member had upset her and was calling her names. Reportedly she ran out into the road and she called EMS herself. Per nursing staff report obtained from EMS patient had endorsed suicidal ideations. Upon my speaking with the patient she denies suicidal ideations and she reports that she feels safe and would like to return back to the senior living. She denies any homicidal ideations. She endorses no physical complaints at this time. Related Data Home Medications Medication Instructions Recorded Confirmed aripiprazole 15 mg tablet 15 mg PO BEDTIME 11/19/22 08/28/23 hydroxyzine pamoate 50 mg capsule 50 mg PO Q6H PRN Anxiety 11/19/22 08/28/23 (Vistaril) lamotrigine 200 mg tablet 200 mg PO QAM 11/19/22 08/28/23 (Lamictal) mirabegron 50 mg tablet,extended 50 mg PO QAM 11/19/22 08/28/23 release 24 hr (Myrbetriq) zolpidem 10 mg tablet 10 mg PO BEDTIME PRN Sleep 11/19/22 08/28/23 acetaminophen 325 mg tablet 975 mg PO DAILY PRN Pain 08/28/23 08/28/23 albuterol sulfate 90 mcg/actuation 2 puff inhalation Q4H PRN 08/28/23 08/28/23 aerosol inhaler Shortness Of Breath Or Wheezing aluminum-mag hydroxide-simethicone 15 ml PO Q6H PRN Dyspepsia 08/28/23 08/28/23 400 mg-400 mg-40 mg/5 mL oral susp (Maalox Maximum Strength) aripiprazole 5 mg tablet 5 mg PO QAM 08/28/23 08/28/23 benztropine 1 mg tablet 1 mg PO BID 08/28/23 08/28/23 calcium carbonate 500 mg calcium 500 mg PO QAM 08/28/23 08/28/23 (1,250 mg) tablet cholecalciferol (vitamin D3) 10 5 mcg PO QAM 08/28/23 08/28/23 mcg (400 unit) tablet (Vitamin D3) diclofenac sodium 1 % topical gel 4 g topical QID 08/28/23 08/28/23 lithium carbonate 600 mg capsule 600 mg PO BEDTIME 08/28/23 08/28/23 loratadine 10 mg tablet 10 mg PO DAILY PRN allergies 08/28/23 08/28/23 melatonin 3 mg tablet 9 mg PO BEDTIME PRN Sleep 08/28/23 08/28/23 multivitamin 1 tab PO DAILY 08/28/23 08/28/23 nystatin-triamcinolone 100,000 1 appl topical BID PRN Rash 08/28/23 08/28/23 unit/g-0.1 % topical cream pantoprazole 20 mg tablet,delayed 20 mg PO QAM 08/28/23 08/28/23 release risperidone 1 mg tablet 1 mg PO QAM 08/28/23 08/28/23 risperidone 2 mg tablet 2 mg PO BEDTIME 08/28/23 08/28/23 Allergies Allergy/AdvReac Type Severity Reaction Status Date / Time penicillin G Allergy Severe Swelling Verified 08/29/22 06:44 amoxicillin [From AUGMENTIN] AdvReac Severe SWOLLEN Verified 08/29/22 06:44 THROAT clavulanic acid AdvReac Severe SWOLLEN Verified 11/20/22 08:24 [From AUGMENTIN] THROAT Penicillins [PENICILLINS] AdvReac Severe Swelling Verified 11/20/22 08:24 fluoxetine [From PROZAC] AdvReac Intermediate RASH Verified 08/29/22 06:43 Review of Systems 2 Review of Systems: Yes all other systems are reviewed and are negative PMFSH Past Medical History Attestation statement: The following information was validated with the patient. Source: old records reviewed Medical History MDD (major depressive disorder), recurrent episode, moderate Post-traumatic stress disorder, chronic Migraine Asthma Retts syndrome Social History Social History Household Members: Other Household Members Other:: Residential Home/Housemates Housing: House Housing Other:: [facility] Do you presently have visiting nurse or other home services: No Alcohol intake: never Patient Tobacco Use Status: Former Tobacco user e-Cigarette/Vaping Use: Never Used Second Hand Smoke Exposure: No Advance Directives: No Advance Directives Information Provided: No service: No Sexual orientation: Don't Know Physical Exam 2 Vital Signs: Vital Signs: Last Vital Signs Temp 98.3 F 08/28/23 14:14 Pulse 103 H 08/28/23 14:14 Resp 16 08/28/23 14:14 BP 124/76 08/28/23 14:14 Pulse Ox 100 08/28/23 14:14 O2 Del Method Room Air 08/28/23 14:14 BMI result Body Mass Index 25.0 Appearance: Alert.?Oriented to person, place and time. No acute distress.?Normal affect. Eyes: Pupils equal, round and reactive to light.? ENT: Pharynx normal.?? Neck: Normal inspection.? Neck supple.?? CVS: Heart sounds normal. Normal heart rate and rhythm.? Pulses normal.?? Respiratory: No respiratory distress.? Lung sounds clear to auscultation bilaterally?? Abdomen: Soft and non-tender. Normoactive bowel sounds. ? Skin: Skin warm and dry.? Normal skin color.? Extremities: No lower extremity edema.? Neuro: Moves all extremities spontaneously. Sensation intact bilaterally. CN II- XII intact. No focal neuro deficits. Ambulates with normal steady gait. Medications Administered Generic Name Dose Route Start Last Admin Trade Name Freq PRN Reason Stop Dose Admin Aripiprazole 15 mg 08/28/23 21:15 08/28/23 21:17 Aripiprazole 15 Mg Tablet PO Not Given BEDTIME TERESA Benztropine Mesylate 1 mg 08/28/23 21:15 08/28/23 21:29 Benztropine Mesylate 1 Mg Tablet PO 1 mg BID TERESA Administration [place] Carbonate 600 mg 08/28/23 21:15 08/28/23 21:29 [place] Carbonate 300 Mg Capsule PO 600 mg BEDTIME TERESA Administration Risperidone 2 mg 08/28/23 21:15 08/28/23 21:29 Risperidone 2 Mg Tablet PO 2 mg BEDTIME TERESA Administration Discontinued Medications Generic Name Dose Route Start Last Admin Trade Name Freq PRN Reason Stop Dose Admin Acetaminophen 975 mg 08/28/23 20:20 08/28/23 20:26 Acetaminophen 325 Mg Tablet PO 08/28/23 20:21 975 mg ONCE ONE Administration Hydroxyzine HCl 25 mg 08/28/23 19:20 08/28/23 19:29 Hydroxyzine Hcl 25 Mg Tablet PO 08/28/23 19:21 25 mg ONCE ONE Administration Medical Decision Making Medical Decision Making MDM Narrative: Patient is a 33-year-old female with past medical history of major depressive disorder, PTSD, migraines, asthma, Rett syndrome presenting to the emergency department via EMS for evaluation after running into the road and making suicidal statements to EMS staff after getting into an argument with a senior living staff member. At this time patient does appear calm and cooperative, she is requesting return back to the senior living. She is denying suicidal ideations at this time. Concerned however that she did endorse SI prior to arrival here and ran into the road after having an argument with staff member. At this time feel that she is most appropriate to be evaluated by CARE team for safe disposition. She has no physical complaints and her physical examination is benign. Differential Diagnosis Differential Diagnoses: The differential diagnosis associated with the presentation includes (Suicidal ideations, depression, PTSD, less likely organic cause) Admission/Observation Consideration of admission/observation: Escalation of care including admission/observation considered Placed in physician observation at 17:02; pending care team evaluation, determination for inpatient psychiatric admission. At this time no respiratory distress. Calm and cooperative. Consult Healthcare Provider Management of the patient was discussed with: Behavioral Health Provider (Care team) Lab Data MDM Lab Attestation statement: I reviewed the patient's lab results. CBC and CMP are overall unremarkable. Urinalysis concerning for urogenital contamination as there is 4+ bacteria and greater than 20 squamous cells and she is asymptomatic. At this time would not consider treatment for urinary tract infection, will follow up culture. Her lithium level is slightly lower than desirable. 08/28/23 13:56 08/28/23 13:56 Labs: Lab Results 08/28/23 08/28/23 Range/Units 13:56 13:58 WBC 7.8 (4.8-10.8) X10*3/uL RBC 4.51 (4.20-5.50) X10*6/uL Hgb 13.8 (12.0-16.0) g/dl Hct 41.9 (37.0-47.0) % MCV 92.9 (80.0-98.0) fL MCH 30.6 (27.0-33.0) pg MCHC 32.9 (31.0-35.0) g/dl RDW 12.6 (11.0-16.0) % Plt Count 422 H D (160-400) X10*3/uL MPV 8.9 L (9.4-12.3) fL Immature Gran % (Auto) 0.6 H (0.0-0.4) % Neut % (Auto) 71.7 (45-73) % Lymph % (Auto) 19.1 L (20-40) % [place] % (Auto) 6.5 (2-11) % Eos % (Auto) 0.9 (0-4) % Baso % (Auto) 1.2 (0-2) % Lymph # (Auto) 1.5 (1.2-4.9) X10*3/uL [place] # (Auto) 0.5 (0.1-1.2) X10*3/uL Eos # (Auto) 0.1 (0.0-0.4) X10*3/uL Baso # (Auto) 0.1 (0.0-0.2) X10*3/uL Abs Immat Gran (auto) 0.05 H (0.00-0.03) X10*3/uL Absolute Neuts (auto) 5.6 (2.0-8.3) x10*3/uL Absolute Nucleated RBC 0.000 (0.0-0.012) X10*3/uL Nucleated RBC % (auto) 0.0 (0.0-0.2) /100WBC Sodium 139 (135-145) mmol/L Potassium 4.3 (3.3-5.1) mmol/L Chloride 106 (96-108) mmol/L Carbon Dioxide 24 (22-29) mmol/L Anion Gap 13 (12-20) BUN 11 (9-16) mg/dL Creatinine 0.75 (0.5-1.4) mg/dL Estim Creat Clear Calc 94.2 Estimated GFR > 60 Random Glucose 78 (60-115) mg/dL Calcium 10.5 H D (8.4-10.2) mg/dL Total Bilirubin 0.6 (0.0-1.0) mg/dL AST 20 (5-31) U/L ALT 20 (0-31) U/L Alkaline Phosphatase 61 (39-117) U/L Total Protein 7.3 (6.5-8.0) g/dL Albumin 4.5 (3.5-5.0) g/dL Urine Color Dark Yellow Urine Appearance Turbid Urine pH 6.5 (5.0-9.0) Ur Specific [place] 1.025 (1.005-1.025) Urine Protein Trace (Neg-Trace) mg/dL Urine Glucose (UA) Negative (Negative) mg/dL Urine Ketones 40 (Negative) mg/dL Urine Blood Negative (Negative) Urine Nitrite Negative (Negative) Ur Leukocyte Esterase Moderate (2+) H (Negative) Urine RBC 3-5 H (0-2) /HPF Urine WBC 21-50 H (0-5) /HPF Ur Squamous Epith Cells >20 (0-2) /HPF Urine Bacteria 4+ (None Seen) Hyaline Casts 3-5 (0-2) /LPF Urine Test NEGATIVE (NEGATIVE) Salicylates < 5.0 L (15-30) mg/dL Urine Opiates Screen Not Detected (Not Detect) Urine Fentanyl Screen Not Detected (Not Detect) Acetaminophen < 3 (<30) mcg/mL Ur Barbiturates Screen Not Detected (Not Detect) Ur Phencyclidine Scrn Not Detected (Not Detect) Ur Amphetamines Screen Not Detected (Not Detect) U Benzodiazepines Scrn Not Detected (Not Detect) [place] 0.42 L (0.60-1.20) mmol/L Urine Cocaine Screen Not Detected (Not Detect) U Marijuana (THC) Screen Not Detected (Not Detect) Ethyl Alcohol < 10 mg/dL COVID-19 (LOGAN) Negative (Negative) COVID-19 Clin Com See Note Independent Historian Clinical information obtained from an independent historian. History obtained from or confirmed by: EMS (Nursing staff report from EMS) Discharge Plan Discharge Clinical Impression: Suicidal ideation Patient Disposition: Still a Patient Prescriptions: No Action aripiprazole 15 mg Tablet 15 mg PO BEDTIME lamotrigine [Lamictal] 200 mg Tablet 200 mg PO QAM hydroxyzine pamoate [Vistaril] 50 mg Capsule 50 mg PO Q6H PRN (Reason: Anxiety) zolpidem 10 mg Tablet 10 mg PO BEDTIME PRN (Reason: Sleep) Myrbetriq 50 mg Tablet Extended Release 24 Hr 50 mg PO QAM multivitamin Tablet 1 tab PO DAILY acetaminophen 325 mg Tablet 975 mg PO DAILY PRN (Reason: Pain) melatonin 3 mg Tablet 9 mg PO BEDTIME PRN (Reason: Sleep) pantoprazole 20 mg tablet,delayed release (DR/EC) 20 mg PO QAM risperidone 2 mg tablet 2 mg PO BEDTIME calcium carbonate 500 mg calcium (1,250 mg) Tablet 500 mg PO QAM lithium carbonate 600 mg capsule 600 mg PO BEDTIME benztropine 1 mg tablet 1 mg PO BID nystatin-triamcinolone 100,000-0.1 unit/g-% cream 1 appl topical BID PRN (Reason: Rash) Rx Instructions: bilateral groins albuterol sulfate 90 mcg/actuation Hfa Aerosol Inhaler 2 puff INHALATION Q4H PRN (Reason: Shortness Of Breath Or Wheezing) risperidone 1 mg tablet 1 mg PO QAM cholecalciferol (vitamin D3) [Vitamin D3] 10 mcg (400 unit) Tablet 5 mcg PO QAM loratadine 10 mg Tablet 10 mg PO DAILY PRN (Reason: allergies) alum-mag hydroxide-simeth [Maalox Maximum Strength] 400-400-40 mg/5 mL Suspension 15 ml PO Q6H PRN (Reason: Dyspepsia) aripiprazole 5 mg tablet 5 mg PO QAM diclofenac sodium 1 % gel 4 g topical QID Rx Instructions: apply to chest, back, and thighs Interventions: [place]-Suicide Risk Severity Scale Last Done: 08/28/23 15:50
[2023-08-28] MEDS: hydrOXYzine HCL 25 MG TABLET PO (19:29)
--- NOTE | 2023-08-28 19:44 | PC.NURSE ---
patient consistently meandering by front of nurses station sometimes slow to follow directions, asking questions nearly continually until redirected, chat about changing their name, the ability to transfer to another hospital, patient expressed that they were anxious and t/w provided hydroxyzine awaiting effect.
[2023-08-28] MEDS: Acetaminophen 325 MG TABLET 975 MG PO (20:26)
--- NOTE | 2023-08-28 21:17 | MHC.CARE ---
Pt's name is Matrix and pt uses he/him pronouns. Pt stops t/w in the pod and communicates that their long term director said they can come home. T/w called to clarify, and spoke with Sandie from [facility], , who reports that pt will need to be assessed prior to returning. Pt and Sandie are informed that assessment will take place tomorrow morning. CARE Team will reach out to Sandie to coordinate care.
[2023-08-28] MEDS: Benztropine Mesylate 1 MG TABLET PO (21:29)
[2023-08-28] MEDS: Lithium Carbonate 300 MG CAPSULE 600 MG PO (21:29)
[2023-08-28] MEDS: risperiDONE 2 MG TABLET PO (21:29)
--- NOTE | 2023-08-29 01:15 | PC.NURSE ---
patient consistently gives compliments to all the staff.
--- NOTE | 2023-08-29 01:22 | PC.NURSE ---
client asked for ice pack, given. client continued to try and engage t/w and t/w explained that in order for me to give good care i was encouraging client to try and get rest. i reminded the client that in the morning the care team would come and assess and that t/w wanted to report that the cleint was trying to get rest. client was reluctant but did go to room, sat on bed.
--- NOTE | 2023-08-29 01:24 | PC.NURSE ---
client was offered sleep med but client declined.
[2023-08-29] MEDS: hydrOXYzine HCL 50 MG TABLET PO (02:20)
--- NOTE | 2023-08-29 02:51 | PC.NURSE ---
client took hydroxyzine for anxiety, patient sits on bed periodically but doesnt make attepts to sleep.
[2023-08-29] MEDS: LORazepam 1 MG TABLET 2 MG PO (04:58)
[2023-08-29] MEDS: Omeprazole 20 MG CAPSULE.DR PO (04:58)
[2023-08-29] MEDS: ARIPiprazole 5 MG TABLET PO (09:07)
[2023-08-29] MEDS: lamoTRIgine 100 MG TABLET 200 MG PO (09:07)
[2023-08-29] MEDS: Cholecalciferol (Vitamin D3) 10 MCG TABLET 5 MCG PO (09:07)
[2023-08-29] MEDS: risperiDONE 1 MG TABLET PO (09:08)
[2023-08-29] MEDS: Multivitamin TABLET 1 TAB PO (09:08)
[2023-08-29] MEDS: Benztropine Mesylate 1 MG TABLET PO (09:08)
[2023-08-29 09:25] VITALS: BP 103/70; PULSE 84; TEMP 36.3; O2SAT 98
[2023-08-29] MEDS: Mirabegron 50 MG TAB.ER.24H PO (09:54)
--- NOTE | 2023-08-29 11:10 | PC.NURSE ---
aox4. calm, coop. no si/hi. walked well w belongings to waiting room w c staff and pt's own staff
== END 2023-08-29 11:09 | disposition home or self-care (01) ==
PROVIDERS: Emergency Medicine; Emergency Provider Internal Medicine; PCP Internal Medicine
DX: F33.1 Major depressive disorder, recurrent, moderate (principal); R45.851 Suicidal ideations; Z79.899 Other long term (current) drug therapy; Z11.52 Encounter for screening for COVID-19; Z20.822 Contact with and (suspected) exposure to COVID-19
CPT/HCPCS: 36415; 80053; 80143; 80178; 80179; 80307; 81001; 81025; 85025; 87086; 87635; 99284; S9485

== ENCOUNTER 2023-09-01 02:24 | Emergency (ER) | payer OTHER, MEDICARE, MEDICAID, SELFPAY ==
[2023-09-01 02:30] VITALS: BP 118/70; BP 130/77; PULSE 118; PULSE 64; RESP 18; TEMP 36.4; O2SAT 98; BMI 29.3
--- NOTE | 2023-09-01 02:30 | PC.NURSE ---
Patient BIBA from [facility] for evaluation of near syncopal episode/near fall, weakness, and dizziness, no fall, no head strike. BP 86/53 by [facility] staff. 118/70 by EMS. Patient denies SI. Patient changed over into a pod attire, EKG and labs completed by by [facility] tech. Dr. Wheeler at bedside.
--- NOTE | 2023-09-01 02:40 | ECG_ITS ---
Test Reason : SYNCOPEE Blood Pressure : / mmHG Vent. Rate : 072 BPM Atrial Rate : 072 BPM P-R Int : 164 ms QRS Dur : 086 ms QT Int : 400 ms P-R-T Axes : 066 018 036 degrees QTc Int : 438 ms Normal sinus rhythm Normal ECG When compared with ECG of 26-DEC-2022 16:58, No significant change was found Referred By: Kezia Gaona Electronically Signed By:DORENE WASHINGTON MD
[2023-09-01 02:57] VITALS: BP 98/66; PULSE 73; RESP 16; O2SAT 98
[2023-09-01 02:58] LABS: MANUAL DIFF FLAG NO
[2023-09-01 03:00] LABS: Basophils Absolute Auto 0.1 X10*3/uL (0.0-0.2); Basophils Percent Auto 1.3 % (0-2); Eosinophils Absolute Auto 0.3 X10*3/uL (0.0-0.4); Eosinophils Percent Auto 4.6 % (0-4); Hematocrit 35.5 % (37.0-47.0); Hemoglobin 11.6 g/dl (12.0-16.0); Imm Gran Abs Auto 0.03 X10*3/uL (0.00-0.03); Imm Gran Pct Auto 0.5 % (0.0-0.4); Lymphocytes Absolute Auto 2.8 X10*3/uL (1.2-4.9); Lymphocytes Percent Auto 45.8 % (20-40); Mean Corpuscular HGB Conc 32.7 g/dl (31.0-35.0); Mean Corpuscular Hemoglobin 30.8 pg (27.0-33.0); Mean Corpuscular Volume 94.2 fL (80.0-98.0); Mean Platelet Volume 8.8 fL (9.4-12.3); Monocytes Absolute Auto 0.5 X10*3/uL (0.1-1.2); Monocytes Percent Auto 8.6 % (2-11); Neutrophils Absolute Auto 2.4 x10*3/uL (2.0-8.3); Neutrophils Percent Auto 39.2 % (45-73); Platelet Count 317 X10*3/uL (160-400); Red Blood Count 3.77 X10*6/uL (4.20-5.50)
--- NOTE | 2023-09-01 03:04 | MHC.EDTECH ---
[facility]pt ekg taken and was read by Provider ,Blood drawn and sent to lab ,Patient was foreign exchange clerk into( green gown and blue Pants ),Patient was hooked up to ekg monitor tech ,Kenn Rubin in Pt room .
[2023-09-01 03:07] VITALS: BP 98/66; PULSE 68
[2023-09-01 03:08] VITALS: BP 101/73; PULSE 72
[2023-09-01 03:09] VITALS: BP 105/79; PULSE 100
--- NOTE | 2023-09-01 03:11 | ED_ITS ---
HPI - Syncope General Chief Complaint: General Medical Stated Complaint: hypotension Time Seen by Provider: 09/01/23 02:29 Source: patient and old records reviewed Mode of arrival: EMS Limitations: no limitations History of Present Illness HPI narrative: 33 yo patient with PMH of PTSD, personality disorder at [facility] currently placed on clonidine which is a new med change notes robinson had a near fall and near syncope but staff caught them and no trauma reported. Staff at [facility] noted BP was 86/53 EMS got 118/70. No CP/SOB. They just want to go back and to sleep. No GIB symptoms reported. MD complaint: almost passed out Onset (ago): hour(s) (1) Prodromal symptoms: lightheaded Witnessed: Yes - by Bystander Context: standing up Injuries sustained associated with event: none Current symptoms: back to baseline History: other (new clonidine) Treatments prior to arrival: none Related Data Home Medications Medication Instructions Recorded Confirmed aripiprazole 15 mg tablet 15 mg PO BEDTIME 11/19/22 08/28/23 hydroxyzine pamoate 50 mg capsule 50 mg PO Q6H PRN Anxiety 11/19/22 08/28/23 (Vistaril) lamotrigine 200 mg tablet 200 mg PO QAM 11/19/22 08/28/23 (Lamictal) mirabegron 50 mg tablet,extended 50 mg PO QAM 11/19/22 08/28/23 release 24 hr (Myrbetriq) zolpidem 10 mg tablet 10 mg PO BEDTIME PRN Sleep 11/19/22 08/28/23 acetaminophen 325 mg tablet 975 mg PO DAILY PRN Pain 08/28/23 08/28/23 albuterol sulfate 90 mcg/actuation 2 puff inhalation Q4H PRN 08/28/23 08/28/23 aerosol inhaler Shortness Of Breath Or Wheezing aluminum-mag hydroxide-simethicone 15 ml PO Q6H PRN Dyspepsia 08/28/23 08/28/23 400 mg-400 mg-40 mg/5 mL oral susp (Maalox Maximum Strength) aripiprazole 5 mg tablet 5 mg PO QAM 08/28/23 08/28/23 benztropine 1 mg tablet 1 mg PO BID 08/28/23 08/28/23 calcium carbonate 500 mg calcium 500 mg PO QAM 08/28/23 08/28/23 (1,250 mg) tablet cholecalciferol (vitamin D3) 10 5 mcg PO QAM 08/28/23 08/28/23 mcg (400 unit) tablet (Vitamin D3) diclofenac sodium 1 % topical gel 4 g topical QID 08/28/23 08/28/23 lithium carbonate 600 mg capsule 600 mg PO BEDTIME 08/28/23 08/28/23 loratadine 10 mg tablet 10 mg PO DAILY PRN allergies 08/28/23 08/28/23 melatonin 3 mg tablet 9 mg PO BEDTIME PRN Sleep 08/28/23 08/28/23 multivitamin 1 tab PO DAILY 08/28/23 08/28/23 nystatin-triamcinolone 100,000 1 appl topical BID PRN Rash 08/28/23 08/28/23 unit/g-0.1 % topical cream pantoprazole 20 mg tablet,delayed 20 mg PO QAM 08/28/23 08/28/23 release risperidone 1 mg tablet 1 mg PO QAM 08/28/23 08/28/23 risperidone 2 mg tablet 2 mg PO BEDTIME 08/28/23 08/28/23 Allergies Allergy/AdvReac Type Severity Reaction Status Date / Time penicillin G Allergy Severe Swelling Verified 08/29/22 06:44 amoxicillin [From AUGMENTIN] AdvReac Severe SWOLLEN Verified 08/29/22 06:44 THROAT clavulanic acid AdvReac Severe SWOLLEN Verified 11/20/22 08:24 [From AUGMENTIN] THROAT Penicillins [PENICILLINS] AdvReac Severe Swelling Verified 11/20/22 08:24 fluoxetine [From PROZAC] AdvReac Intermediate RASH Verified 08/29/22 06:43 Review of Systems 2 Review of Systems: Constitutional : No Fever, No Chills, No Fatigue Cardiovascular : No Chest Pain, No SOB, No Dyspnea on Exertion Respiratory : No Cough, No Sputum Gastrointestinal : No Nausea, No Vomiting, No Diarrhea, No abdominal Pain Genitourinary : No Dysuria, No Urinary Frequency, No Hematuria, Musculoskeletal : No joint pain, No Myalgias, No Joint Swelling Skin : No Skin Lesions, No rash Neuro : No Weakness, No Numbness, No Dizziness, no Headache Psych : No Anxiety/Panic, No Depression All other systems reviewed and are negative PMFSH Past Medical History Attestation statement: The following information was validated with the patient. Source: old records reviewed Medical History MDD (major depressive disorder), recurrent episode, moderate Post-traumatic stress disorder, chronic Migraine Asthma Retts syndrome Social History Social History Household Members: Other Household Members Other:: Residential Home/Housemates Housing: House Housing Other:: [facility] Do you presently have visiting nurse or other home services: No Alcohol intake: former Patient Tobacco Use Status: Former Tobacco user Smoked in Last 30 Days: No e-Cigarette/Vaping Use: Never Used Second Hand Smoke Exposure: No Use of substances other than those prescribed or required for medical reasons: No Patient : No service: No Sexual orientation: Don't Know Physical Exam 2 Vital Signs: Vital Signs: Last Vital Signs Temp 97.6 F 09/01/23 02:30 Pulse 100 09/01/23 03:09 Resp 16 09/01/23 02:57 BP 105/79 09/01/23 03:09 Pulse Ox 98 09/01/23 02:57 O2 Del Method Room Air 09/01/23 02:57 BMI result Body Mass Index 29.3 Appearance: Alert. Oriented X3. No acute distress. Eyes: Pupils equal, round and reactive to light. ENT: Pharynx normal. Neck: Normal inspection. Neck supple. CVS: Normal heart rate and rhythm. Pulses normal. Respiratory: No respiratory distress. Breath sounds normal. Abdomen: Soft and nontender. Skin: Skin warm and dry. Normal skin color. Normal skin turgor. Extremities: No lower extremity edema. No calf ttp R wrist in splint Neuro: Oriented X 3. No motor deficit. No sensory deficit. Course Course Course Narrative: ortho negatives Medical Decision Making Medical Decision Making MDM Narrative: 33 yo patient with PMH of PTSD, personality disorder at [facility] here with near syncopal episode has no CP/SOB denies GIB symptoms, no fevers. States they feel fine and want to go back. Suspect possible reaction to clonidine. Will obtain basic labs, EKG, ortho VS if negative stable for DC back but will ask them to monitor and hold clonidine Differential Diagnosis Differential Diagnoses: The differential diagnosis associated with the presentation includes dehydration, anemia, med reaction Admission/Observation Consideration of admission/observation: Escalation of care including admission/observation considered labs stable, feels fine she states, ortho negative Lab Data MDM Lab Attestation statement: I reviewed the patient's lab results. 09/01/23 02:55 09/01/23 02:55 Labs: Lab Results 09/01/23 Range/Units 02:55 WBC 6.0 (4.8-10.8) X10*3/uL RBC 3.77 L (4.20-5.50) X10*6/uL Hgb 11.6 L (12.0-16.0) g/dl Hct 35.5 L (37.0-47.0) % MCV 94.2 (80.0-98.0) fL MCH 30.8 (27.0-33.0) pg MCHC 32.7 (31.0-35.0) g/dl RDW 13.0 (11.0-16.0) % Plt Count 317 (160-400) X10*3/uL MPV 8.8 L (9.4-12.3) fL Immature Gran % (Auto) 0.5 H (0.0-0.4) % Neut % (Auto) 39.2 L (45-73) % Lymph % (Auto) 45.8 H (20-40) % [place] % (Auto) 8.6 (2-11) % Eos % (Auto) 4.6 H (0-4) % Baso % (Auto) 1.3 (0-2) % Lymph # (Auto) 2.8 (1.2-4.9) X10*3/uL [place] # (Auto) 0.5 (0.1-1.2) X10*3/uL Eos # (Auto) 0.3 (0.0-0.4) X10*3/uL Baso # (Auto) 0.1 (0.0-0.2) X10*3/uL Abs Immat Gran (auto) 0.03 (0.00-0.03) X10*3/uL Absolute Neuts (auto) 2.4 (2.0-8.3) x10*3/uL Absolute Nucleated RBC 0.000 (0.0-0.012) X10*3/uL Nucleated RBC % (auto) 0.0 (0.0-0.2) /100WBC Independent Interpretation I performed an independent interpretation of an: EKG Interpretation: Rate: 72 Rhythm: NSR [place]: normal Normal P waves. Normal MARCELA. Normal QRS complex. ST T wave : normal no SANTIAGO qTC: normal prior studies: no acute ischemia The study has been interpreted contemporaneously by me. . Independent Historian Clinical information obtained from an independent historian. History obtained from or confirmed by: EMS External Record Review External record reviewed: Inpatient record Discharge Plan Discharge Clinical Impression: Near syncope Patient Disposition: Home, Self-Care Instructions: Near Syncope (ED) Additional Instructions: EKG normal, negative orthostatics, mild anemia hemoglobin 13 to 11.6 - monitor for any signs of bleeding, can repeat in 48 hours. no dehydration, chemistry normal BP > 100 in ED. at this time would be careful and possibly hold clonidine could be reaction Prescriptions: No Action aripiprazole 15 mg Tablet 15 mg PO BEDTIME lamotrigine [Lamictal] 200 mg Tablet 200 mg PO QAM hydroxyzine pamoate [Vistaril] 50 mg Capsule 50 mg PO Q6H PRN (Reason: Anxiety) zolpidem 10 mg Tablet 10 mg PO BEDTIME PRN (Reason: Sleep) Myrbetriq 50 mg Tablet Extended Release 24 Hr 50 mg PO QAM multivitamin Tablet 1 tab PO DAILY acetaminophen 325 mg Tablet 975 mg PO DAILY PRN (Reason: Pain) melatonin 3 mg Tablet 9 mg PO BEDTIME PRN (Reason: Sleep) pantoprazole 20 mg tablet,delayed release (DR/EC) 20 mg PO QAM risperidone 2 mg tablet 2 mg PO BEDTIME calcium carbonate 500 mg calcium (1,250 mg) Tablet 500 mg PO QAM lithium carbonate 600 mg capsule 600 mg PO BEDTIME benztropine 1 mg tablet 1 mg PO BID nystatin-triamcinolone 100,000-0.1 unit/g-% cream 1 appl topical BID PRN (Reason: Rash) Rx Instructions: bilateral groins albuterol sulfate 90 mcg/actuation Hfa Aerosol Inhaler 2 puff INHALATION Q4H PRN (Reason: Shortness Of Breath Or Wheezing) risperidone 1 mg tablet 1 mg PO QAM cholecalciferol (vitamin D3) [Vitamin D3] 10 mcg (400 unit) Tablet 5 mcg PO QAM loratadine 10 mg Tablet 10 mg PO DAILY PRN (Reason: allergies) alum-mag hydroxide-simeth [Maalox Maximum Strength] 400-400-40 mg/5 mL Suspension 15 ml PO Q6H PRN (Reason: Dyspepsia) aripiprazole 5 mg tablet 5 mg PO QAM diclofenac sodium 1 % gel 4 g topical QID Rx Instructions: apply to chest, back, and thighs
[2023-09-01 03:18] LABS: Alanine Aminotransferase 17 U/L (0-31); Albumin Level 3.6 g/dL (3.5-5.0); Alkaline Phosphatase 57 U/L (39-117); Anion Gap 10 (12-20); Aspartate Amino Transferase 18 U/L (5-31); Bilirubin Total 0.2 mg/dL (0.0-1.0); Blood Urea Nitrogen 14 mg/dL (9-16); Calcium 8.9 mg/dL (8.4-10.2); Carbon Dioxide 25 mmol/L (22-29); Chloride 110 mmol/L (96-108); Creatinine Clr Calc Pharmacy 113.8; Estimated Glomerular Filt Rate > 60; Glucose Random 91 mg/dL (60-115); Potassium 3.9 mmol/L (3.3-5.1); Sodium 141 mmol/L (135-145); Total Protein 5.6 g/dL (6.5-8.0)
--- NOTE | 2023-09-01 04:27 | MHC.EDTECH ---
Addendum entered by Vinny Marvin 09/01/23 04:30: estimated eta given was 0500 Original Note: call out to coleen at 0417 to book transport for pt back to [facility], estimated eta given was 9505
[2023-09-01 05:22] VITALS: BP 111/70; PULSE 81; RESP 18; TEMP 36.8; O2SAT 98
== END 2023-09-01 05:26 | disposition home or self-care (01) ==
PROVIDERS: Emergency Provider Emergency Medicine; PCP Internal Medicine
DX: R55 Syncope and collapse (principal); F84.2 Rett's syndrome; F43.12 Post-traumatic stress disorder, chronic; Z87.891 Personal history of nicotine dependence; Z79.899 Other long term (current) drug therapy
CPT/HCPCS: 36415; 80053; 85025; 93005; 99283; 99284

== ENCOUNTER → 2023-09-01 02:40 | Outpatient (BNV) | payer MEDICARE, MEDICAID, SELFPAY | PROVIDERS: Emergency Provider Emergency Medicine; PCP Internal Medicine; Visit Provider Internal Medicine Cardiovascular Disease | DX: R55 Syncope and collapse (principal) | CPT/HCPCS: 93010 ==

== ENCOUNTER 2023-11-03 07:44 | Outpatient (REF) | payer OTHER, MEDICARE, MEDICAID, SELFPAY ==
[2023-11-03 10:17] LABS: MANUAL DIFF FLAG NO
[2023-11-03 10:23] LABS: Basophils Absolute Auto 0.1 X10*3/uL (0.0-0.2); Basophils Percent Auto 1.3 % (0-2); Eosinophils Absolute Auto 0.2 X10*3/uL (0.0-0.4); Eosinophils Percent Auto 4.2 % (0-4); Hematocrit 41.4 % (37.0-47.0); Hemoglobin 13.6 g/dl (12.0-16.0); Imm Gran Abs Auto 0.02 X10*3/uL (0.00-0.03); Imm Gran Pct Auto 0.4 % (0.0-0.4); Mean Corpuscular HGB Conc 32.9 g/dl (31.0-35.0); Mean Corpuscular Volume 91.4 fL (80.0-98.0); Mean Platelet Volume 9.8 fL (9.4-12.3); Monocytes Absolute Auto 0.5 X10*3/uL (0.1-1.2); Monocytes Percent Auto 8.5 % (2-11); Neutrophils Absolute Auto 2.6 x10*3/uL (2.0-8.3); Neutrophils Percent Auto 48.6 % (45-73); Platelet Count 360 X10*3/uL (160-400); Red Blood Count 4.53 X10*6/uL (4.20-5.50); Red Cell Distribution Width 13.1 % (11.0-16.0); White Blood Count 5.3 X10*3/uL (4.8-10.8)
[2023-11-03 10:50] LABS: Lithium 0.47 mmol/L (0.60-1.20)
[2023-11-03 11:10] LABS: Anion Gap 12 (12-20); Blood Urea Nitrogen 16 mg/dL (9-16); Calcium 9.6 mg/dL (8.4-10.2); Carbon Dioxide 26 mmol/L (22-29); Chloride 108 mmol/L (96-108); Estimated Glomerular Filt Rate > 60; Glucose Random 81 mg/dL (60-115); Potassium 4.4 mmol/L (3.3-5.1); Sodium 142 mmol/L (135-145)
[2023-11-03 11:28] LABS: Thyroid Stimulating Hormone 1.33 uIU/mL (0.32-4.0)
[2023-11-05 04:19] LABS: Prolactin 15.1 ng/mL
== END 2023-11-03 07:45 | disposition home or self-care (01) ==
LOC: HO.HMGCLDS 07:44
PROVIDERS: PCP Internal Medicine; Visit Provider Clinical Nurse Specialist Psychiatric/Mental Health, Adult
DX: F63.81 Intermittent explosive disorder (principal); F33.3 Major depressive disorder, recurrent, severe with psychotic symptoms
CPT/HCPCS: 36415; 80048; 80178; 84146; 84443; 85025

== ENCOUNTER 2024-02-07 13:53 | Outpatient (AMB) | payer MEDICARE, MEDICAID, SELFPAY ==
[2024-02-07 14:58] VITALS: BP 118/74; PULSE 74; TEMP 37; O2SAT 97; BMI 32.3
--- NOTE | 2024-02-07 14:58 | AM.OFFWIN_ITS ---
Intake Vital Signs 02/07/24 14:58 Height 5 ft 6 in Weight 200 lb BMI 32.3 BP 118/74 Blood Pressure Location Rt brachial Position Sitting Pulse 74 Pulse Source Pulse Oximeter Temp 98.6 F Temp Source Oral Pulse Oximetry (%) 97 Intake Visit Reasons: EP sinus/ear infection Intake Note: pt is here for sinus and ear pain since monday Patient Tobacco Use Status: Former Tobacco user Allergies penicillin G Allergy (Severe, Verified 02/07/24 14:58) Swelling amoxicillin [From AUGMENTIN] Adverse Reaction (Severe, Verified 02/07/24 14:58) SWOLLEN THROAT clavulanic acid [From AUGMENTIN] Adverse Reaction (Severe, Verified 02/07/24 14:58) SWOLLEN THROAT Penicillins [PENICILLINS] Adverse Reaction (Severe, Verified 02/07/24 14:58) Swelling fluoxetine [From PROZAC] Adverse Reaction (Intermediate, Verified 02/07/24 14:58) RASH Do you need a note to return to daycare/school/sports/work: No HPI HPI Comments History of Present Illness Details 33 y/o female patient who presents to [facility] in clinic with c/o left ear and face pain since Monday [facility] Medical History MDD (major depressive disorder), recurrent episode, moderate Post-traumatic stress disorder, chronic Migraine Asthma Retts syndrome Social History Household Members: Other Household Members Other:: Residential Home/Housemates Housing: House Housing Other:: [facility] Do you presently have visiting nurse or other home services: No Alcohol intake: former Patient Tobacco Use Status: Former Tobacco user e-Cigarette/Vaping Use: Never Used Second Hand Smoke Exposure: No service: No Sexual orientation: Don't Know Physical Exam Vital Signs: Last Vital Signs Temp 98.6 F 02/07/24 14:58 Pulse 74 02/07/24 14:58 BP 118/74 02/07/24 14:58 Pulse Ox 97 02/07/24 14:58 BMI result Body Mass Index 32.3 Const General: comfortable and no acute distress Nutritional Appearance: obese Orientation/consciousness: patient oriented x3 HEENT Head: Yes normocephalic Ears: external ears normal and TM abnormal bulging, with fluid behind the TM on the right and obstructed by cerumen on the right; not bullous, not dull, not perforated and not retracted General nose exam: Normal nasal mucous membranes and turbinates present Face and sinus: Yes sinus tenderness Mouth: moist mucous membranes Throat: Yes posterior oropharynx normal Resp Effort & Inspection: normal respiratory effort and able to speak in complete sentences Auscultation: clear to auscultation bilaterally, no crackles, no rales, no rhonchi and no wheezes Cardio Rate: regular rate Rhythm: regular rhythm Neuro General: patient oriented x3, gait normal and moves all extremities Psych Speech and movement: Normal speech and movement present Assessment & Plan Assessment & Plan (1) Allergic rhinitis: Code(s): J30.9 - Allergic rhinitis, unspecified Qualifiers: Allergic rhinitis seasonality: seasonal Allergic rhinitis trigger: unspecified Qualified Code(s): J30.2 - Other seasonal allergic rhinitis Plan: - Take Claritin BID for 7 days - Acetaminophen for pain relief. Medications: Changed From loratadine 10 mg PO DAILY PRN allergies J30.2 - Other seasonal allergic rhinitis To loratadine TAKE MEDICATION DIRECTED 10 mg PO DAILY PRN 60 tabs 0RF allergies J30.2 - Other seasonal allergic rhinitis Coding Level of Care Code Est Pt Level 3 (35773) Diagnoses Seasonal allergic rhinitis, unspecified trigger J30.2 Allergic rhinitis seasonality: seasonal Allergic rhinitis trigger: unspecified Time Spent (min) 15
== END 2024-02-07 16:36 | disposition home or self-care (01) ==
PROVIDERS: PCP Internal Medicine; Visit Provider Nurse Practitioner Family
DX: J30.2 Other seasonal allergic rhinitis (principal)
CPT/HCPCS: 99213

== ENCOUNTER 2024-02-08 07:53 | Outpatient (REF) | payer MEDICARE, MEDICAID, OTHER, SELFPAY ==
[2024-02-08 10:22] LABS: MANUAL DIFF FLAG NO
[2024-02-08 10:36] LABS: Basophils Absolute Auto 0.1 X10*3/uL (0.0-0.2); Eosinophils Percent Auto 0.5 % (0-4); Hematocrit 44.4 % (37.0-47.0); Imm Gran Abs Auto 0.05 X10*3/uL (0.00-0.03); Imm Gran Pct Auto 0.6 % (0.0-0.4); Lymphocytes Absolute Auto 2.2 X10*3/uL (1.2-4.9); Lymphocytes Percent Auto 27.7 % (20-40); Mean Corpuscular HGB Conc 33.8 g/dl (31.0-35.0); Mean Corpuscular Hemoglobin 29.6 pg (27.0-33.0); Mean Corpuscular Volume 87.7 fL (80.0-98.0); Mean Platelet Volume 9.4 fL (9.4-12.3); Monocytes Absolute Auto 0.6 X10*3/uL (0.1-1.2); Monocytes Percent Auto 8.2 % (2-11); Neutrophils Absolute Auto 4.8 x10*3/uL (2.0-8.3); Platelet Count 375 X10*3/uL (160-400); Red Blood Count 5.06 X10*6/uL (4.20-5.50); Red Cell Distribution Width 12.5 % (11.0-16.0); White Blood Count 7.8 X10*3/uL (4.8-10.8)
[2024-02-08 10:47] LABS: Estimated Average Glucose 94 mg/dL; Hemoglobin A1c % 4.9 % (<6.0)
[2024-02-08 11:07] LABS: Lithium 0.44 mmol/L (0.60-1.20)
[2024-02-08 11:11] LABS: Alanine Aminotransferase 19 U/L (0-31); Alkaline Phosphatase 98 U/L (39-117); Anion Gap 12 (12-20); Aspartate Amino Transferase 20 U/L (5-31); Bilirubin Total 0.7 mg/dL (0.0-1.0); Blood Urea Nitrogen 12 mg/dL (9-16); Calcium 9.4 mg/dL (8.4-10.2); Carbon Dioxide 26 mmol/L (22-29); Chloride 105 mmol/L (96-108); Cholesterol 204 mg/dL (<200); Estimated Glomerular Filt Rate > 60; Glucose Random 85 mg/dL (60-115); HDL Cholesterol 49 mg/dL (>40); LDL Cholesterol Calculated 121 mg/dL (<100); Potassium 4.5 mmol/L (3.3-5.1); Sodium 138 mmol/L (135-145); Total Protein 6.9 g/dL (6.5-8.0); Triglycerides 173 mg/dL (<150)
== END 2024-02-08 07:54 | disposition home or self-care (01) ==
LOC: HO.HMGCLDS 07:53
PROVIDERS: Visit Provider Clinical Nurse Specialist Psychiatric/Mental Health, Adult
DX: F63.81 Intermittent explosive disorder (principal); F33.41 Major depressive disorder, recurrent, in partial remission; Z79.899 Other long term (current) drug therapy
CPT/HCPCS: 36415; 80053; 80061; 80178; 83036; 84443; 85025

== ENCOUNTER 2024-05-24 07:34 | Outpatient (REF) | payer MEDICARE, MEDICAID, OTHER, SELFPAY ==
[2024-05-24 10:30] LABS: MANUAL DIFF FLAG NO
[2024-05-24 10:40] LABS: Estimated Average Glucose 100 mg/dL; Hemoglobin A1c % 5.1 % (<6.0)
[2024-05-24 10:59] LABS: Alanine Aminotransferase 20 U/L (0-31); Albumin Level 4.1 g/dL (3.5-5.0); Alkaline Phosphatase 106 U/L (39-117); Anion Gap 12 (12-20); Aspartate Amino Transferase 19 U/L (5-31); Bilirubin Total 0.5 mg/dL (0.0-1.0); Blood Urea Nitrogen 11 mg/dL (9-16); Calcium 9.8 mg/dL (8.4-10.2); Carbon Dioxide 24 mmol/L (22-29); Chloride 107 mmol/L (96-108); Cholesterol 236 mg/dL (<200); Estimated Glomerular Filt Rate > 60; Glucose Random 95 mg/dL (60-115); HDL Cholesterol 46 mg/dL (>40); LDL Cholesterol Calculated 155 mg/dL (<100); Potassium 4.3 mmol/L (3.3-5.1); Sodium 139 mmol/L (135-145); Total Protein 7.1 g/dL (6.5-8.0); Triglycerides 175 mg/dL (<150)
[2024-05-24 11:16] LABS: TSH reflex Free T4 1.97 uIU/mL (0.32-4.0)
[2024-05-24 11:21] LABS: Basophils Absolute Auto 0.1 X10*3/uL (0.0-0.2); Hematocrit 43.8 % (37.0-47.0); Hemoglobin 14.7 g/dl (12.0-16.0); Imm Gran Abs Auto 0.04 X10*3/uL (0.00-0.03); Imm Gran Pct Auto 0.6 % (0.0-0.4); Lymphocytes Absolute Auto 1.9 X10*3/uL (1.2-4.9); Lymphocytes Percent Auto 26.7 % (20-40); Mean Corpuscular HGB Conc 33.6 g/dl (31.0-35.0); Mean Corpuscular Hemoglobin 29.1 pg (27.0-33.0); Mean Corpuscular Volume 86.7 fL (80.0-98.0); Mean Platelet Volume 9.5 fL (9.4-12.3); Monocytes Absolute Auto 0.5 X10*3/uL (0.1-1.2); Monocytes Percent Auto 6.9 % (2-11); Neutrophils Absolute Auto 4.7 x10*3/uL (2.0-8.3); Neutrophils Percent Auto 64.8 % (45-73); Platelet Count 424 X10*3/uL (160-400); Red Blood Count 5.05 X10*6/uL (4.20-5.50); White Blood Count 7.2 X10*3/uL (4.8-10.8)
[2024-05-26 06:17] LABS: Prolactin 12.7 ng/mL
== END 2024-05-24 07:35 | disposition home or self-care (01) ==
LOC: HO.HMGCLDS 07:34
PROVIDERS: PCP Internal Medicine; Visit Provider Internal Medicine
DX: Z00.00 Encounter for general adult medical examination without abnormal findings (principal); N64.3 Galactorrhea not associated with childbirth; Z13.1 Encounter for screening for diabetes mellitus; R63.5 Abnormal weight gain
CPT/HCPCS: 36415; 80053; 80061; 83036; 84146; 84443; 85025

== ENCOUNTER 2025-01-25 07:32 | Outpatient (REF) | payer MEDICARE, MEDICAID, OTHER, SELFPAY ==
[2025-01-25 11:16] LABS: MANUAL DIFF FLAG NO
[2025-01-25 11:37] LABS: Basophils Absolute Auto 0.1 X10*3/uL (0.0-0.2); Basophils Percent Auto 0.7 % (0-2); Hematocrit 44.3 % (37.0-47.0); Hemoglobin 14.5 g/dl (12.0-16.0); Imm Gran Abs Auto 0.03 X10*3/uL (0.00-0.03); Imm Gran Pct Auto 0.4 % (0.0-0.4); Lymphocytes Absolute Auto 2.1 X10*3/uL (1.2-4.9); Lymphocytes Percent Auto 29.3 % (20-40); Mean Corpuscular HGB Conc 32.7 g/dl (31.0-35.0); Mean Corpuscular Hemoglobin 29.1 pg (27.0-33.0); Mean Platelet Volume 9.7 fL (9.4-12.3); Monocytes Absolute Auto 0.5 X10*3/uL (0.1-1.2); Monocytes Percent Auto 7.2 % (2-11); Neutrophils Absolute Auto 4.4 x10*3/uL (2.0-8.3); Neutrophils Percent Auto 62.4 % (45-73); Platelet Count 443 X10*3/uL (160-400); Red Blood Count 4.98 X10*6/uL (4.20-5.50); Red Cell Distribution Width 13.2 % (11.0-16.0); White Blood Count 7.1 X10*3/uL (4.8-10.8)
[2025-01-25 11:41] LABS: Estimated Average Glucose 97 mg/dL; Hemoglobin A1C 116.0141 umol/L; Total Hemoglobin (HGBA1C) 3724.2281 umol/L
[2025-01-25 11:43] LABS: Alanine Aminotransferase 17 U/L (0-31); Alkaline Phosphatase 119 U/L (39-117); Anion Gap 10 (12-20); Aspartate Amino Transferase 23 U/L (5-31); Bilirubin Total 0.5 mg/dL (0.0-1.0); Blood Urea Nitrogen 7 mg/dL (9-16); Calcium 9.5 mg/dL (8.4-10.2); Carbon Dioxide 24 mmol/L (22-29); Chloride 110 mmol/L (96-108); Cholesterol 224 mg/dL (<200); Estimated Glomerular Filt Rate > 60; Glucose Random 85 mg/dL (60-115); HDL Cholesterol 41 mg/dL (>40); LDL Cholesterol Calculated 142 mg/dL (<100); Potassium 4.4 mmol/L (3.3-5.1); Sodium 140 mmol/L (135-145); Total Protein 7.1 g/dL (6.5-8.0); Triglycerides 207 mg/dL (<150)
[2025-01-25 11:57] LABS: Lithium 0.48 mmol/L (0.60-1.20)
[2025-01-25 12:02] LABS: Thyroid Stimulating Hormone 2.22 uIU/mL (0.32-4.0)
== END 2025-01-25 07:33 | disposition home or self-care (01) ==
LOC: HO.HMGCLDS 07:32
PROVIDERS: PCP Internal Medicine; Visit Provider Clinical Nurse Specialist Psychiatric/Mental Health, Adult
DX: F33.41 Major depressive disorder, recurrent, in partial remission (principal); F63.81 Intermittent explosive disorder; Z13.1 Encounter for screening for diabetes mellitus
CPT/HCPCS: 36415; 80053; 80061; 80178; 83036; 84443; 85025